=== PATIENT | male | born 1930 | race Caucasian/White ===

== ENCOUNTER 2016-09-04 14:41 | Outpatient (RCR) | payer MEDICARE, OTHER ==
--- OUTSIDE RECORDS SUMMARY | 2016-06-18 08:54 | XMS REPORT | Continuity of Care Document ---
Author Author [facility] Organization [facility] Address Unknown Phone Unavailable Care Team Providers Care Tactical Air Control Party Manager Name Role Phone Minnie Alejandra PCP [phone] Source Comments Some departments are not documenting in the electronic medical record. If you do not see the information that you expected, contact Release of Information in the Health Information Management department at [phone] for further assistance in locating additional records.[facility] Active Allergies and Adverse Reactions No Known Allergies Current Medications Prescription Sig. Disp. Refills Start End Date Status Date bethanechol (URECHOLINE) Take 50 mg by mouth twice Active 25 mg tablet daily. aspirin 81 mg chew tablet Take 81 mg by mouth Active daily. clopidogrel (PLAVIX) 75 Take 75 mg by mouth Active mg daily. atorvastatin (LIPITOR) 80 Take 80 mg by mouth at Active mg tablet bedtime daily. amlodipine-benazepril Take 1 Cap by mouth at Active (LOTREL) 2.5-10 mg per bedtime daily. capsule ciprofloxacin (CIPRO) 500 Take 500 mg by mouth Active mg tablet twice daily. memantine (NAMENDA) 10 mg Take 10 mg by mouth twice Active tablet daily. (patient takes [place] brand name: Admenta). vitamins, B complex Tab Take 1 Tab by mouth Active daily. vitamins, multiple Cap Take 1 Cap by mouth Active daily. Active Problems Not on file Social History Tobacco Use Types Packs/Day Years Used Date Former Smoker Cigars Quit: 09/14/1951 Smokeless Tobacco: Former User Alcohol Use Drinks/Week oz/Week Comments No Last Filed Vital Signs Vital Sign Reading Time Taken Blood Pressure 132/78 12/15/2011 4:00 PM CDT Pulse 66 12/15/2011 4:00 PM CDT Temperature 36 C (96.8 F) 12/15/2011 4:00 PM CDT Respiratory Rate - - Height 1.829 m (6') 12/15/2011 11:00 AM CDT Weight 83.915 kg (185 lb) 12/15/2011 11:00 AM CDT Body Mass Index 25.08 12/15/2011 11:00 AM CDT Oxygen Saturation 99% 12/15/2011 4:00 PM CDT Plan of Care Health Maintenance Due Date Last Done Comments Physical (Comprehensive) 1937 Exam Pertussis Vaccine 1941 Tetanus Vaccine 11/30/1947 Shingles Vaccine 1990 Prevnar/Pneumovax (#1) 11/30/1995 Influenza Vaccine 05/15/2015 Results from Last 3 Months Not on file
[2016-06-24 09:27] LABS: URIC ACID 6.7 MG/DL (2.6-7.2)
[2016-06-30 14:35] LABS: BASOPHILS # (AUTO) 0.1 10^3/uL (0.0-0.1); BASOPHILS % (AUTO) 1 % (0-10); EOSINOPHILS # (AUTO) 0.4 10^3/uL (0.0-0.3); EOSINOPHILS % (AUTO) 3 % (0-10); LYMPHOCYTES # (AUTO) 0.8 X 10^3 (1.0-4.0); LYMPHOCYTES % (AUTO) 6 % (12-44); MEAN CORPUSCULAR HEMOGLOBIN 28 PG (25-34); MEAN CORPUSCULAR HGB CONC 33 G/DL (32-36); MEAN CORPUSCULAR VOLUME 84 FL (80-99); MEAN PLATELET VOLUME 8.9 FL (7.4-10.4); MONOCYTES % (AUTO) 0 % (0-12); NEUTROPHILS # (AUTO) 11.1 X 10^3 (1.8-7.8); NEUTROPHILS % (AUTO) 90 % (42-75); PLATELET COUNT 221 10^3/uL (130-400); RED BLOOD COUNT 4.53 10^6/uL (4.35-5.85); RED CELL DISTRIBUTION WIDTH 14.9 % (10.0-14.5); WHITE BLOOD COUNT 12.4 10^3/uL (4.3-11.0)
[2016-06-30 14:56] LABS: BILIRUBIN,URINE NEGATIVE (NEGATIVE); KETONES,URINE NEGATIVE (NEGATIVE); LEUKOCYTE ESTERASE ,URINE 3+ (NEGATIVE); NITRITE,URINE NEGATIVE (NEGATIVE); PH,URINE 7 (5-9); PROTEIN,URINE 2+ (NEGATIVE); UROBILINOGEN,URINE NORMAL (NORMAL)
[2016-06-30 14:57] LABS: WBC,URINE TNTC /HPF
[2016-06-30 15:13] LABS: ALANINE AMINOTRANSFERASE 54 U/L (0-55); ALBUMIN 3.1 G/DL (3.2-4.5); ANION GAP 6 MMOL/L (5-14); ASPARTATE AMINO TRANSFERASE 23 U/L (5-34); BILIRUBIN,TOTAL 1.6 MG/DL (0.1-1.0); BLOOD UREA NITROGEN 21 MG/DL (7-18); BUN/CREATININE RATIO 20; CARBON DIOXIDE 26 MMOL/L (21-32); CHLORIDE 104 MMOL/L (98-107); CREATININE SERUM 1.05 MG/DL (0.60-1.30); GFR ESTIMATED > 60; GLUCOSE 162 MG/DL (70-105); POTASSIUM 4.4 MMOL/L (3.6-5.0); SODIUM 136 MMOL/L (135-145); TOTAL PROTEIN 5.4 G/DL (6.4-8.2); URIC ACID 4.7 MG/DL (2.6-7.2)
[2016-07-08 13:51] LABS: BASOPHILS # (AUTO) 0.1 10^3/uL (0.0-0.1); BASOPHILS % (AUTO) 6 % (0-10); EOSINOPHILS # (AUTO) 0.5 10^3/uL (0.0-0.3); EOSINOPHILS % (AUTO) 20 % (0-10); LYMPHOCYTES % (AUTO) 41 % (12-44); MEAN CORPUSCULAR HEMOGLOBIN 27 PG (25-34); MEAN CORPUSCULAR HGB CONC 32 G/DL (32-36); MEAN CORPUSCULAR VOLUME 85 FL (80-99); MEAN PLATELET VOLUME 8.6 FL (7.4-10.4); MONOCYTES # (AUTO) 0.6 X 10^3 (0.0-1.0); MONOCYTES % (AUTO) 22 % (0-12); NEUTROPHILS # (AUTO) 0.3 X 10^3 (1.8-7.8); NEUTROPHILS % (AUTO) 11 % (42-75); PLATELET COUNT 188 10^3/uL (130-400); RED BLOOD COUNT 4.42 10^6/uL (4.35-5.85); RED CELL DISTRIBUTION WIDTH 15.3 % (10.0-14.5); WHITE BLOOD COUNT 2.5 10^3/uL (4.3-11.0)
[2016-07-08 14:41] LABS: ANION GAP 6 MMOL/L (5-14); BLOOD UREA NITROGEN 12 MG/DL (7-18); BUN/CREATININE RATIO 12; CALCIUM 8.3 MG/DL (8.5-10.1); CARBON DIOXIDE 24 MMOL/L (21-32); CHLORIDE 108 MMOL/L (98-107); CREATININE SERUM 0.99 MG/DL (0.60-1.30); GFR ESTIMATED > 60; GLUCOSE 117 MG/DL (70-105); POTASSIUM 4.7 MMOL/L (3.6-5.0); SODIUM 138 MMOL/L (135-145); URIC ACID 4.6 MG/DL (2.6-7.2)
[2016-07-14 12:21] LABS: BASOPHILS # (AUTO) 0.2 10^3/uL (0.0-0.1); BASOPHILS % (AUTO) 2 % (0-10); EOSINOPHILS # (AUTO) 0.6 10^3/uL (0.0-0.3); EOSINOPHILS % (AUTO) 6 % (0-10); LYMPHOCYTES # (AUTO) 1.8 X 10^3 (1.0-4.0); LYMPHOCYTES % (AUTO) 20 % (12-44); MEAN CORPUSCULAR HEMOGLOBIN 28 PG (25-34); MEAN CORPUSCULAR HGB CONC 32 G/DL (32-36); MEAN CORPUSCULAR VOLUME 86 FL (80-99); MEAN PLATELET VOLUME 8.4 FL (7.4-10.4); MONOCYTES # (AUTO) 1.5 X 10^3 (0.0-1.0); MONOCYTES % (AUTO) 16 % (0-12); NEUTROPHILS # (AUTO) 5.3 X 10^3 (1.8-7.8); NEUTROPHILS % (AUTO) 57 % (42-75); PLATELET COUNT 256 10^3/uL (130-400); RED BLOOD COUNT 4.68 10^6/uL (4.35-5.85); WHITE BLOOD COUNT 9.4 10^3/uL (4.3-11.0)
[2016-07-14 13:33] LABS: ANION GAP 8 MMOL/L (5-14); BLOOD UREA NITROGEN 12 MG/DL (7-18); BUN/CREATININE RATIO 11; CALCIUM 8.7 MG/DL (8.5-10.1); CARBON DIOXIDE 25 MMOL/L (21-32); CHLORIDE 107 MMOL/L (98-107); CREATININE SERUM 1.14 MG/DL (0.60-1.30); GFR ESTIMATED > 60; GLUCOSE 109 MG/DL (70-105); POTASSIUM 4.6 MMOL/L (3.6-5.0); SODIUM 140 MMOL/L (135-145); URIC ACID 5.4 MG/DL (2.6-7.2)
[2016-07-15 13:47] LABS: BILIRUBIN,URINE NEGATIVE (NEGATIVE); KETONES,URINE NEGATIVE (NEGATIVE); LEUKOCYTE ESTERASE ,URINE 1+ (NEGATIVE); NITRITE,URINE NEGATIVE (NEGATIVE); PH,URINE 6 (5-9); PROTEIN,URINE 1+ (NEGATIVE); UROBILINOGEN,URINE 4 MG/DL (NORMAL)
[2016-07-15 13:55] LABS: SQUAMOUS EPITHELIAL CELL,UR 0-2 /HPF
[2016-07-22 10:48] LABS: BASOPHILS # (AUTO) 0.2 10^3/uL (0.0-0.1); BASOPHILS % (AUTO) 2 % (0-10); EOSINOPHILS # (AUTO) 0.4 10^3/uL (0.0-0.3); EOSINOPHILS % (AUTO) 4 % (0-10); LYMPHOCYTES # (AUTO) 1.6 X 10^3 (1.0-4.0); LYMPHOCYTES % (AUTO) 13 % (12-44); MEAN CORPUSCULAR HEMOGLOBIN 28 PG (25-34); MEAN CORPUSCULAR HGB CONC 33 G/DL (32-36); MEAN CORPUSCULAR VOLUME 85 FL (80-99); MEAN PLATELET VOLUME 9.4 FL (7.4-10.4); MONOCYTES # (AUTO) 1.3 X 10^3 (0.0-1.0); MONOCYTES % (AUTO) 11 % (0-12); NEUTROPHILS # (AUTO) 8.6 X 10^3 (1.8-7.8); NEUTROPHILS % (AUTO) 71 % (42-75); PLATELET COUNT 214 10^3/uL (130-400); RED BLOOD COUNT 4.56 10^6/uL (4.35-5.85); RED CELL DISTRIBUTION WIDTH 16.2 % (10.0-14.5); WHITE BLOOD COUNT 12.1 10^3/uL (4.3-11.0)
[2016-07-22 11:16] LABS: ALANINE AMINOTRANSFERASE 24 U/L (0-55); ALBUMIN 3.5 G/DL (3.2-4.5); ANION GAP 9 MMOL/L (5-14); ASPARTATE AMINO TRANSFERASE 24 U/L (5-34); BILIRUBIN,TOTAL 0.9 MG/DL (0.1-1.0); BLOOD UREA NITROGEN 9 MG/DL (7-18); BUN/CREATININE RATIO 9; CALCIUM 8.8 MG/DL (8.5-10.1); CARBON DIOXIDE 21 MMOL/L (21-32); CHLORIDE 108 MMOL/L (98-107); CREATININE SERUM 1.04 MG/DL (0.60-1.30); GFR ESTIMATED > 60; GLUCOSE 109 MG/DL (70-105); LACTATE DEHYDROGENASE 365 U/L (125-220); POTASSIUM 4.1 MMOL/L (3.6-5.0); SODIUM 138 MMOL/L (135-145); TOTAL PROTEIN 5.9 G/DL (6.4-8.2)
[2016-07-28 15:49] LABS: BASOPHILS # (AUTO) 0.1 10^3/uL (0.0-0.1); BASOPHILS % (AUTO) 1 % (0-10); EOSINOPHILS # (AUTO) 1.1 10^3/uL (0.0-0.3); EOSINOPHILS % (AUTO) 4 % (0-10); LYMPHOCYTES # (AUTO) 1.7 X 10^3 (1.0-4.0); LYMPHOCYTES % (AUTO) 7 % (12-44); MEAN CORPUSCULAR HEMOGLOBIN 29 PG (25-34); MEAN CORPUSCULAR HGB CONC 33 G/DL (32-36); MEAN CORPUSCULAR VOLUME 85 FL (80-99); MEAN PLATELET VOLUME 10.2 FL (7.4-10.4); MONOCYTES # (AUTO) 0.2 X 10^3 (0.0-1.0); MONOCYTES % (AUTO) 1 % (0-12); NEUTROPHILS # (AUTO) 22.5 X 10^3 (1.8-7.8); NEUTROPHILS % (AUTO) 88 % (42-75); PLATELET COUNT 147 10^3/uL (130-400); RED BLOOD COUNT 4.67 10^6/uL (4.35-5.85); RED CELL DISTRIBUTION WIDTH 15.7 % (10.0-14.5); WHITE BLOOD COUNT 25.6 10^3/uL (4.3-11.0)
[2016-07-28 16:14] LABS: ANION GAP 9 MMOL/L (5-14); BLOOD UREA NITROGEN 18 MG/DL (7-18); BUN/CREATININE RATIO 21; CALCIUM 8.4 MG/DL (8.5-10.1); CARBON DIOXIDE 25 MMOL/L (21-32); CHLORIDE 104 MMOL/L (98-107); CREATININE SERUM 0.87 MG/DL (0.60-1.30); GFR ESTIMATED > 60; GLUCOSE 117 MG/DL (70-105); MAGNESIUM 2.1 MG/DL (1.8-2.4); POTASSIUM 3.6 MMOL/L (3.6-5.0); SODIUM 138 MMOL/L (135-145); URIC ACID 5.6 MG/DL (2.6-7.2)
[2016-08-04 11:38] LABS: BASOPHILS # (AUTO) 0.1 10^3/uL (0.0-0.1); BASOPHILS % (AUTO) 1 % (0-10); EOSINOPHILS # (AUTO) 0.3 10^3/uL (0.0-0.3); EOSINOPHILS % (AUTO) 2 % (0-10); LYMPHOCYTES # (AUTO) 1.4 X 10^3 (1.0-4.0); LYMPHOCYTES % (AUTO) 11 % (12-44); MEAN CORPUSCULAR HEMOGLOBIN 28 PG (25-34); MEAN CORPUSCULAR HGB CONC 32 G/DL (32-36); MEAN CORPUSCULAR VOLUME 87 FL (80-99); MEAN PLATELET VOLUME 9.2 FL (7.4-10.4); MONOCYTES # (AUTO) 0.9 X 10^3 (0.0-1.0); MONOCYTES % (AUTO) 7 % (0-12); NEUTROPHILS # (AUTO) 10.7 X 10^3 (1.8-7.8); NEUTROPHILS % (AUTO) 80 % (42-75); PLATELET COUNT 127 10^3/uL (130-400); RED BLOOD COUNT 4.37 10^6/uL (4.35-5.85); RED CELL DISTRIBUTION WIDTH 16.6 % (10.0-14.5); WHITE BLOOD COUNT 13.3 10^3/uL (4.3-11.0)
[2016-08-04 12:13] LABS: CALCIUM 8.7 MG/DL (8.5-10.1); CREATININE SERUM 1.27 MG/DL (0.60-1.30); MAGNESIUM 2.5 MG/DL (1.8-2.4); POTASSIUM 4.9 MMOL/L (3.6-5.0)
[2016-08-11 14:04] LABS: BASOPHILS # (AUTO) 0.2 10^3/uL (0.0-0.1); BASOPHILS % (AUTO) 2 % (0-10); EOSINOPHILS # (AUTO) 0.3 10^3/uL (0.0-0.3); EOSINOPHILS % (AUTO) 2 % (0-10); LYMPHOCYTES # (AUTO) 1.7 X 10^3 (1.0-4.0); LYMPHOCYTES % (AUTO) 14 % (12-44); MEAN CORPUSCULAR HEMOGLOBIN 28 PG (25-34); MEAN CORPUSCULAR HGB CONC 33 G/DL (32-36); MEAN CORPUSCULAR VOLUME 87 FL (80-99); MEAN PLATELET VOLUME 8.8 FL (7.4-10.4); MONOCYTES % (AUTO) 8 % (0-12); NEUTROPHILS # (AUTO) 8.5 X 10^3 (1.8-7.8); NEUTROPHILS % (AUTO) 74 % (42-75); PLATELET COUNT 214 10^3/uL (130-400); RED BLOOD COUNT 4.37 10^6/uL (4.35-5.85); RED CELL DISTRIBUTION WIDTH 17.3 % (10.0-14.5); WHITE BLOOD COUNT 11.6 10^3/uL (4.3-11.0)
[2016-08-11 15:42] LABS: CALCIUM 9.1 MG/DL (8.5-10.1); CREATININE SERUM 1.32 MG/DL (0.60-1.30); MAGNESIUM 2.1 MG/DL (1.8-2.4); POTASSIUM 4.8 MMOL/L (3.6-5.0); URIC ACID 6.6 MG/DL (2.6-7.2)
[2016-08-18 09:28] LABS: BASOPHILS # (AUTO) 0.1 10^3/uL (0.0-0.1); BASOPHILS % (AUTO) 1 % (0-10); EOSINOPHILS # (AUTO) 0.4 10^3/uL (0.0-0.3); EOSINOPHILS % (AUTO) 3 % (0-10); LYMPHOCYTES # (AUTO) 1.8 X 10^3 (1.0-4.0); LYMPHOCYTES % (AUTO) 16 % (12-44); MEAN CORPUSCULAR HEMOGLOBIN 29 PG (25-34); MEAN CORPUSCULAR HGB CONC 33 G/DL (32-36); MEAN CORPUSCULAR VOLUME 86 FL (80-99); MEAN PLATELET VOLUME 8.6 FL (7.4-10.4); MONOCYTES # (AUTO) 0.8 X 10^3 (0.0-1.0); MONOCYTES % (AUTO) 8 % (0-12); NEUTROPHILS # (AUTO) 7.9 X 10^3 (1.8-7.8); NEUTROPHILS % (AUTO) 72 % (42-75); PLATELET COUNT 240 10^3/uL (130-400); RED BLOOD COUNT 4.25 10^6/uL (4.35-5.85); RED CELL DISTRIBUTION WIDTH 17.4 % (10.0-14.5); WHITE BLOOD COUNT 10.9 10^3/uL (4.3-11.0)
[2016-08-18 09:58] LABS: ALBUMIN 3.7 G/DL (3.2-4.5); BILIRUBIN,TOTAL 0.8 MG/DL (0.1-1.0); CREATININE SERUM 1.23 MG/DL (0.60-1.30); MAGNESIUM 1.9 MG/DL (1.8-2.4); POTASSIUM 4.3 MMOL/L (3.6-5.0); URIC ACID 7.3 MG/DL (2.6-7.2)
[2016-09-01 11:18] LABS: BASOPHILS % (AUTO) 0 % (0-10); EOSINOPHILS # (AUTO) 0.4 10^3/uL (0.0-0.3); EOSINOPHILS % (AUTO) 2 % (0-10); LYMPHOCYTES # (AUTO) 2.2 X 10^3 (1.0-4.0); LYMPHOCYTES % (AUTO) 14 % (12-44); MEAN CORPUSCULAR HEMOGLOBIN 29 PG (25-34); MEAN CORPUSCULAR HGB CONC 33 G/DL (32-36); MEAN CORPUSCULAR VOLUME 87 FL (80-99); MEAN PLATELET VOLUME 8.5 FL (7.4-10.4); MONOCYTES # (AUTO) 1.6 X 10^3 (0.0-1.0); MONOCYTES % (AUTO) 10 % (0-12); NEUTROPHILS # (AUTO) 11.6 X 10^3 (1.8-7.8); NEUTROPHILS % (AUTO) 74 % (42-75); PLATELET COUNT 234 10^3/uL (130-400); RED CELL DISTRIBUTION WIDTH 17.5 % (10.0-14.5); WHITE BLOOD COUNT 15.7 10^3/uL (4.3-11.0)
[2016-09-01 11:53] LABS: ANION GAP 7 MMOL/L (5-14); BLOOD UREA NITROGEN 25 MG/DL (7-18); BUN/CREATININE RATIO 25; CALCIUM 8.5 MG/DL (8.5-10.1); CARBON DIOXIDE 23 MMOL/L (21-32); CHLORIDE 107 MMOL/L (98-107); CREATININE SERUM 0.99 MG/DL (0.60-1.30); GFR ESTIMATED > 60; GLUCOSE 69 MG/DL (70-105); MAGNESIUM 2.2 MG/DL (1.8-2.4); POTASSIUM 4.3 MMOL/L (3.6-5.0); SODIUM 137 MMOL/L (135-145); URIC ACID 6.6 MG/DL (2.6-7.2)
[2016-09-01 12:28] LABS: ALANINE AMINOTRANSFERASE 26 U/L (0-55); ALBUMIN 3.4 G/DL (3.2-4.5); ASPARTATE AMINO TRANSFERASE 18 U/L (5-34); BILIRUBIN,TOTAL 1.1 MG/DL (0.1-1.0); TOTAL PROTEIN 5.4 G/DL (6.4-8.2)
[~2016-09-04] VITALS: Ht 178.4 cm; Wt 90.7 kg
[~2016-09-04 14:41] MED LIST: ACETAMINOPHEN 325 MG TAB (TYLENOL) CANCER CTR PO PRN; ASP325TEC PO; ASPI-808 PO; ATOR10TA66 PO; ATOR80TA76 PO; BISA5TAB8 PO; CEFD300C3 PO; CEPH-507 PO; COLE1TAB PO; CYCLOPHOSPHAMIDE IV SCH; ETOPOSIDE IV SCH; FAMOTIDINE 20MG/2ML IV (CANCER CTR) IV SCH; FOSAPREPITANT 150 MG/NS 150 MG IVPB (CANCER CTR) IV PRN; GLUC1TAB29 PO; HYDR-3714 PO; HYDR-3812 PO; HYDR-3820 PO; MEPERIDINE (DEMEROL) INJ 50 MG/ML CANCER CTR IV PRN; NITR-65 PO; NORMAL SALINE IV SCH; NS IV 1000 ML (CANCER CTR) IV SCH; NS IV 500 ML (CANCER CENTER) 500 ML ONE; NS IV SCH; OMEP20TA7 PO; ONDA8TAB6 PO; ONDANSETRON 16 MG, DEXAMETHASONE 10 MG/NS 50 ML IVPB IV SCH; PEGFILGRASTIM 6 MG/0.6ML NEULASTA SC SCH; PHEN-639 PO; POLY17PO6 PO; PRD10T PO; SULF1TAB35 PO; SULF1TAB7 PO; TRIM100T PO; VINCRISTINE SULFATE IV SCH; [UNRECOGNIZED DRUG - OTHER] IV SCH; bactrim PO; diphenhydrAMINE 25 MG TAB (BENADRYL) CANCER CENTER PO ONE; diphenhydrAMINE 25 MG TAB (BENADRYL) CANCER CENTER PO SCH; diphenhydrAMINE 50 MG/ML INJ (CANCER CENTER) IV PRN; riTUXimab 500 MG, riTUXimab FOR IV INJ CONC 200 MG in NS (IVPB) CANCER CENTER ONLY 150 ML IV SCH; vinCRIStine SULFATE 2 MG in NS (IVPB) 50 ML IV SCH
[2016-09-08] MEDS ORDERED: CEPH-507 PO (15:30)
[2016-09-09] MEDS ORDERED: CEPH-507 PO (13:55)
[2016-09-09] MEDS ORDERED: HYDR-3820 PO (13:55)
[2016-09-09] MEDS ORDERED: OMEP20CA12 PO (13:55)
== END 2016-09-16 | disposition home or self-care (01) ==
LOC: ONC 14:41
PROVIDERS: ATTEND Internal Medicine Hematology & Oncology
DX: Z51.11 Encounter for antineoplastic chemotherapy (principal); C83.38 Diffuse large B-cell lymphoma, lymph nodes of multiple sites; D70.1 Agranulocytosis secondary to cancer chemotherapy; T45.1X5A Adverse effect of antineoplastic and immunosuppressive drugs, initial encounter; N39.0 Urinary tract infection, site not specified; I25.10 Atherosclerotic heart disease of native coronary artery without angina pectoris; F03.90 Unspecified dementia, unspecified severity, without behavioral disturbance, psychotic disturbance, mood disturbance, and anxiety; R53.1 Weakness; I10 Essential (primary) hypertension; G47.33 Obstructive sleep apnea (adult) (pediatric); Z85.46 Personal history of malignant neoplasm of prostate; Z95.1 Presence of aortocoronary bypass graft; Z79.899 Other long term (current) drug therapy
CPT/HCPCS: 36415; 36591; 80048; 80053; 80074; 81000; 83615; 83735; 84550; 85025; 87088; 87186; 96360; 96367; 96372; 96375; 96411; 96413; 96415; 96417; 99213; 99214

== ENCOUNTER 2016-09-12 13:14 | Inpatient (IN) | payer MEDICARE, OTHER ==
[~2016-09-12] VITALS: Ht 182.9 cm; Wt 96.2 kg
[~2016-09-12 13:14] MED LIST changes: -ACETAMINOPHEN 325 MG TAB (TYLENOL) CANCER CTR PO PRN; -CYCLOPHOSPHAMIDE IV SCH; -ETOPOSIDE IV SCH; -FAMOTIDINE 20MG/2ML IV (CANCER CTR) IV SCH; -FOSAPREPITANT 150 MG/NS 150 MG IVPB (CANCER CTR) IV PRN; -MEPERIDINE (DEMEROL) INJ 50 MG/ML CANCER CTR IV PRN; -NORMAL SALINE IV SCH; -NS IV 1000 ML (CANCER CTR) IV SCH; -NS IV 500 ML (CANCER CENTER) 500 ML ONE; -NS IV SCH; +OMEP20CA12 PO; -ONDANSETRON 16 MG, DEXAMETHASONE 10 MG/NS 50 ML IVPB IV SCH; -PEGFILGRASTIM 6 MG/0.6ML NEULASTA SC SCH; -VINCRISTINE SULFATE IV SCH; -[UNRECOGNIZED DRUG - OTHER] IV SCH; -diphenhydrAMINE 25 MG TAB (BENADRYL) CANCER CENTER PO ONE; -diphenhydrAMINE 25 MG TAB (BENADRYL) CANCER CENTER PO SCH; -diphenhydrAMINE 50 MG/ML INJ (CANCER CENTER) IV PRN; -riTUXimab 500 MG, riTUXimab FOR IV INJ CONC 200 MG in NS (IVPB) CANCER CENTER ONLY 150 ML IV SCH; -vinCRIStine SULFATE 2 MG in NS (IVPB) 50 ML IV SCH
[2016-09-12] MEDS ORDERED: CATHETER FLUSH 10 ML SYR IV PRN (14:15)
[2016-09-12] MEDS ORDERED: ONDANSETRON 4 MG/2 ML (SDV) Z0FRAN IV PRN (14:15)
[2016-09-12] MEDS ORDERED: POLYETHYLENE GLYCOL 17 GM (MIRALAX) PACK PO PRN (14:15)
[2016-09-12] MEDS ORDERED: MILK OF MAGNESIA 400 MG/5 ML 30 ML UDC PO PRN (14:15)
[2016-09-12] MEDS ORDERED: SENNA W/DOCUSATE (SENOKOT S) TABLET PO PRN (14:15)
[2016-09-12] MEDS ORDERED: PATIENT MAY USE OWN MEDS, ALL PO SCH (14:15)
--- OUTSIDE RECORDS SUMMARY | 2016-09-12 14:32 | XMS REPORT | Continuity of Care Document ---
Author Author [facility] Organization [facility] Address Unknown Phone Unavailable Care Team Providers Care Kicking Machine Operator Name Role Phone Minnie Alejandra PCP [phone] Source Comments Some departments are not documenting in the electronic medical record. If you do not see the information that you expected, contact Release of Information in the Health Information Management department at [phone] for further assistance in locating additional records.[facility] Active Allergies and Adverse Reactions No [...] mouth twice Active tablet daily. (patient takes [place] brand name: Admenta). vitamins, B complex Tab [...]
--- NOTE | 2016-09-12 15:08 | Oncology History & Physical ---
Visit Information Visit Information Date of Admission Sep 12, 2016 at 14:21 Attending Physician Suma Grayson Admitting Physician Minnie Alejandra MD Interval History 1. 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 Clinical stage at least IIIa on chemo last dose 09/01/16 2. Neutropenic fever and pancytopenia due to chemo, on Granix 480mcg. WBC and ANC much improved. No more fever. 3. E coli and enterococcus UTI with h/o chronic UTI and neurogenic bladder and self-catheterize bladder. resistance to Levaquin, sensitive to Rocephin. 4. Mild dementia 5. CAD. Reason Hospital Visit Mr. Velasquez is a 85 year old white man admitted on 09/09/16 with UTI, pancytopenia, neutropenic fever and lymphoma. He was treated with IVF and initially Levaquin, Rocephin. The Levaquin was stopped 2nd day after the urine culture showed E Coli and resistance to Levaquin but sensitive to Rocephin. He was also given Granix 480mcg daily. His condition was initially improved and his WBC was up from 1.2 to 17. We stopped Granix and planned to send him home today but he spiked low grade fever and urine culture showed enterococcus and sensitive to Vancomycin. We added Vancomycin to Rocephin and discharged him to swing bed to continue the IV antibiotics and continue PT/OT. He is somewhat weaker today and his stated that he did not have good sleep because he did not have CPAP. She will bring it in today. Discharge condition: Stable. Pt will continue IV antibiotics. Pharmacy to monitor Vanco level and dosing. I consulted the patient on: 09/12/16 14:58 Constitutional: weakness Respiratory: no symptoms reported Cardiovascular: no symptoms reported Genitourinary: see HPI Health Status Allergies Coded Allergies: No Known Drug Allergies (Unverified , 07/30/16) Home Medications Aspirin (Aspirin) 325 Mg Tablet 325 MG PO DAILY (Reported) Atorvastatin Calcium (Atorvastatin Calcium) 80 Mg Tablet 40 MG PO HS (Reported) TAKES 1/2 (80MG) TABLET Cephalexin (Keflex) 500 Mg Capsule 7Days 500 MG PO QID (Reported) #28 FILLED 09-08-16 Hydrocodone/Acetaminophen (Hydrocodon-Acetaminophn 10-325) 1 Each Tablet 1 TAB PO Q4H PRN PRN PAIN (Reported) Omeprazole (Omeprazole) 20 Mg Capsule.dr 20 MG PO DAILY (Reported) Ondansetron HCl (Zofran) 8 Mg Tablet 8 MG PO Q8H PRN PRN NAUSEA/VOMITING ( Reported) Polyethylene Glycol 3350 (Miralax) 17 Gm Powd.pack 17 GM PO DAILY PRN PRN CONSTIPATION (Reported) JOD-Hxpmfs-Krzlhw Hx Patient Social History Former smoker/When Quit: Sep 14, 1969 Type Used: Cigarettes Recent Hopitalizations: Yes Immunizations Up To Date Tetanus Booster (TDap): More than 5yrs Date of Pneumonia Vaccine: Jun 03, 2015 Date of Influenza Vaccine: Aug 04, 2016 Family Medical History Significant Family History: No Pertinent Family Hx Family History: Arthritis 19 FATHER Cardiovascular disease FH: lymphoma 19 MOTHER Prostate cancer 19 FATHER Physical Exam Vital Signs Capillary Refill : General Appearance: No Apparent Distress HEENT: PERRL/EOMI Neck: Non Tender Supple Respiratory: Chest Non Tender No Accessory Muscle Use No Respiratory Distress Gastrointestinal: Non Tender Soft Extremity: Non Tender Swelling Neurologic/Psychiatric: Alert Oriented x3 Impression & Plan Impression & Plan IMP: 1. 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 Clinical stage at least IIIa on chemo last dose 09/01/16 2. Neutropenic fever and pancytopenia due to chemo, on Granix 480mcg. WBC and ANC much improved. No more fever. 3. E coli and enterococcus UTI with h/o chronic UTI and neurogenic bladder and self-catheterize bladder. resistance to Levaquin, sensitive to Rocephin. 4. Mild dementia 5. CAD. Plan: 1. IV antibiotics Rocephin and Vanco. 2. Pharmacy monitor Vanco and dosing' 3. PT OT 4. CPAP from home at night ELTON FONTENOT MD Sep 12, 2016 15:08
--- NOTE | 2016-09-12 15:11 | Occupational Therapy Eval ---
OT Evaluation-General/PLF Medical Diagnosis Admission Date Sep 12, 2016 at 14:21 Onset Date: Sep 09, 2016 Therapy Diagnosis Therapy Diagnosis: decreased self care Height/Weight Height (Feet): 6 Height (Inches): 0.00 Weight (Pounds): 212 Weight (Ounces): 5.0 Referral Physician: Malia Medical History Pertinent Medical History: CAD, Dementia, [place] Additional Medical History Lymphoma, chronic UTI, neurogenic bladder Reviewed History: Yes Social History Home: Single Level Current Living Status: Spouse Entry Into Home: Stairs With Railing Steps Into Home: 3 ADL-Prior Level of Function ADL PLOF Comments Pt reports being independent with basic self care and mobility. able to assist as needed. DME/Equipment: Tub/Shower Drive Self: Yes OT Current Status Subjective Pt agreeable to therapy. No c/o pain. Mental Status/Objective Patient Orientation: Person, Place, Time (able to state month, but not year or date) Attachments: IV Current Glasses/Contacts: Yes Hearing Aids: Yes Dentures/Partials: Yes Hand Dominance: Right Upper Extremity ROM Grossly WFL Upper Extremity Coordination Intact Upper Extremity Strength Grossly 4/5 ADL-Treatment ADL-Current Pt in restroom upon therapist arrival. Sit to stand with minimal assistance using grab bar. Pt requires minimal assistance to pull Depends up. Gait to chair with FWW with minimal assistance for balance. Assist for IV pole. Pt doffed socks without assistance. Required minimal assistance to don left sock. Able to don right sock with SBA. Increased time required for ADLs and mobility. Pt sitting in chair with needs met after session. Functional [place] Measure 0=Not Assessed/NA 4=Minimal Assistance 1=Total Assistance 5=Supervision or Setup 2=Maximal Assistance 6=Modified [place] 3=Moderate Assistance 7=Complete IndependenceIRFPAI Quality Coding Scale 6 Independent with activity with or without an assistive device 5 Patient requires set up or clean up by helper. Patient completes activity by themselves 4 Supervision or touching assist (CGA). [place] provide cues , steadying assist 3 The helper provides less than half the effort to complete the activity 2 The helper provides more than half the effort to complete the activity 1 Dependent. The helper does all the effort to complete an activity 7 Patient refused to complete or attempt activity 9 The patient did not perform the activity before the current illness or injury 88 Not attempted due to Medical conditions or safety concerns Eating (FIM): 5 Eating (QC): 5 Lower Body Dressing (FIM): 4 (socks only) Toileting (FIM): 4 Toilet/Commode Transfer (FIM): 4 Education OT Patient Education: Rehab process Teaching Recipient: Patient Teaching Methods: Discussion Response to Teaching: Verbalize Understanding, Reinforcement Needed OT Short Term Goals Short Term Goals 1=Demonstrate adherence to instructed precautions during ADL tasks. 2=Patient will verbalize/demonstrate understanding of assistive devices/ modifications for ADL. 3=Patient will improve strength/tolerance for activity to enable patient to perform ADL's. OT Shelter Goals Shelter Goals Time Frame: Sep 26, 2016 Eating (FIM): 6 Eating (QC): 6 Oral Hygiene (QC): 6 Grooming(FIM): 6 Bathing(FIM): 5 Upper Body Dressing(FIM): 5 Lower Body Dressing(FIM): 5 Toileting(FIM): 5 Toilet/Commode Transfer(FIM): 5 Toilet/Commode Transfer (QC): 5 Additional Goals: 1-Demonstrate ADL Tasks, 2-Verbalize Understanding, 3- ImproveStrength/Natalio 1=Demonstrate adherence to instructed precautions during ADL tasks. 2=Patient will verbalize/demonstrate understanding of assistive devices/ modifications for ADL. 3=Patient will improve strength/tolerance for activity to enable patient to perform ADL's. OT Education/Plan Problem List/Assessment Assessment: Decreased Activ Tolerance, Dependent Transfers, Impaired Self-Care Skills Pt to benefit from skilled OT intervention for ADL training, transfers, strengthening, and home safety education to increase functional performance and allow safe return home. Discharge Recommendations Plan/Recommendations: Continue POC Treatment Plan/Plan of Care Treatment,Training & Education: Yes Patient would benefit from OT for education, treatment and training to promote independence in ADL's, mobility, safety and/or upper extremity function for ADL' s. Plan of Care: ADL Retraining, Functional Mobility, UE Funct Exercise/Act Treatment Duration: Sep 26, 2016 # of days/week 5 Visits Per Week: 5 Agreement: Yes Rehab Potential: Fair Time/GCodes Start Time: 14:34 Stop Time: 15:00 Total Time Billed (hr/min): 26 Billed Treatment Time 1 visit, EVS(10minutes), ADL(16minutes) KALE POWELL OT Sep 12, 2016 15:11
--- NOTE | 2016-09-12 15:24 | Physical Therapy Evaluation ---
PT Evaluation-General Medical Diagnosis Admission Date Sep 12, 2016 at 14:21 Medical Diagnosis: UTI Onset Date: Sep 09, 2016 Therapy Diagnosis Therapy Diagnosis: generalized weakness and debility Height/Weight Height (Feet): 6 Height (Inches): 0.00 Weight (Pounds): 212 Weight (Ounces): 5.0 Referral Physician: Malia Reason for Referral: Evaluation/Treatment Medical History Pertinent Medical History: CAD, Dementia, [place] Additional Medical History non Hodgkins lymphoma Current History severe weakness Reviewed History: Yes Social History Home: Single Level Current Living Status: Spouse Entry Into Home: Stairs With Railing PT Steps Into Home: 2 Prior/Core FIM Prior Level of Function Functional [place] Measure 0=Not Assessed/NA 4=Minimal Assistance 1=Total Assistance 5=Supervision or Setup 2=Maximal Assistance 6=Modified [place] 3=Moderate Assistance 7=Complete [place] Bed Mobility: 6 Transfers (B,C,W/C) (FIM): 6 Gait: 6 uses FWW at home PT Current Subjective Patient is slightly agitated but agrees to therapy. Pain Numeric Pain Scale: 0-No Pain Location: No Pain Reported Mental Status Patient Orientation: Confused Attachments: IV Transfers Functional [place] Measure 0=Not Assessed/NA 4=Minimal Assistance 1=Total Assistance 5=Supervision or Setup 2=Maximal Assistance 6=Modified [place] 3=Moderate Assistance 7=Complete IndependenceIRFPAI Quality Coding Scale 6 Independent with activity with or without an assistive device 5 Patient requires set up or clean up by helper. Patient completes activity by themselves 4 Supervision or touching assist (CGA). [place] provide cues , steadying assist 3 The helper provides less than half the effort to complete the activity 2 The helper provides more than half the effort to complete the activity 1 Dependent. The helper does all the effort to complete an activity 7 Patient refused to complete or attempt activity 9 The patient did not perform the activity before the current illness or injury 88 Not attempted due to Medical conditions or safety concerns Transfers (B, C, W/C) (FIM): 4 Scootin Rollin Supine to/from Sit: 4 Sit to/from Stand: 4 Bed to/from Chair: 4 Sit to Lying (QC): 4 Lying-Sitting/Side of Bed(QC): 3 Sit to Stand (QC): 3 Chair/Iju-rb-Gsucf Xfer(QC): 3 Patient is unaware of safety concerns and is impulsive to sit. Education with patient on proper sit to stand transfer techniques Gait Training Does the Patient Walk?: Yes Gait (FIM): 2 Distance (FIM): 0=755-49 ft Distance: 125' x 1; 50' x 1 Walk 50 ft with 2 Turns(QC): 2 Walk 150 ft (QC): 3 Gait Level of Assist: 4 Gait Persons Needed: 1 Gait Assistive Device: FWW severe flexed knee posture with ambulation and inability to self correct. Skilled verbal instruction for body placement in FWW (FWW too far forward) Wheelchair Training Does the Pt Use a Wheelchair?: No Balance Balance Sitting Static: Normal Balance Sitting Dynamic: Normal Balance-Standing Static: Fair Balance Standing Dynamic: Fair Exercises Seated Therapy Exercises: Ankle pumps, Long arc quads Seated Reps: 10 Treatments Gait training with education with patient of proper FWW use and body placement in FWW for safety. Patient becomes very agitated during treatment and treatment ceased. Assessment 85 y.o. male, will benefit from short term skilled PT to address functional strength and mobility to improve current LOF and to safely return to home with spouse and home health intervention. Due to dementia, patient becomes agitated when instructed/educated on proper techniques for safety concerns. PT Emergency Department Physician Goals Emergency Department Physician Goals PT Prison Goals Time Frame: Sep 26, 2016 Transfers (B,C,W/C) (FIM): 6 Sit to Lying (QC): 6 Lying-Sitting on Side/Bed(QC): 6 Sit to Stand (QC): 6 Rollin Chair/Yku-my-Dqscd Xfer(QC): 6 Does the Patient Walk: Yes Gait (FIM): 6 Gait distance (FIM): 3=150 ft Distance: 200' Gait Assistive Device: FWW Does the Pt use WC or Scooter?: No PT Plan Problem List Problem List: Activity Tolerance, Functional Strength, Safety, Balance, Gait, Transfer Treatment/Plan Treatment Plan: Continue Plan of Care Treatment Plan: Bed Mobility, Education, Functional Activity Natalio, Functional Strength, Gait, Safety, Therapeutic Exercise, Transfers Treatment Duration: Sep 26, 2016 # of days/week 6 Visits Per Week: 11 Minutes/Day (M-F): 15-45 Minutes/Day (Sat/[place]): PRN Pt/Family Agrees w/Plan: Yes Safety Risks/Education Patient Education: Gait Training, Transfer Techniques, Safety Issues Teaching Recipient: Patient Teaching Methods: Demonstration, Discussion Response to Teaching: Reinforcement Needed Discharge Recommendations Therapy D/C Recommendations: Physical Therapy Home Care Time/GCodes Time In: 1500 Time Out: 1523 Total Billed Treatment Time: 23 Total Billed Treatment 1 visit EVS 10 min GT 15 min ALFREDO IRENE PT Sep 12, 2016 15:24
[2016-09-12] MEDS: NS IV 1000 ML 1,000 ML IV SCH (16:57)
[2016-09-12 18:50] VITALS: BP 176/93
[2016-09-12] MEDS ORDERED: NORMAL SALINE (BAXTER MINI) 50 ML IV ONE (20:30)
[2016-09-12] MEDS ORDERED: cefTRIAXone 1 GM (ROCEPHIN) VIAL ONE (20:30)
[2016-09-12] MEDS: cefTRIAXone INJECTION 1,000 MG in NORMAL SALINE (BAXTER MINI) 50 ML IV SCH (20:41)
[2016-09-12] MEDS: ATORVASTATIN 40 MG (LIPITOR) TABLET PO SCH (20:41)
[2016-09-12] MEDS: ALPRAZolam 0.25 MG (XANAX) TAB PO PRN (23:41)
[2016-09-13] MEDS: diphenhydrAMINE 25 MG TAB (BENADRYL) PO PRN (02:26)
[2016-09-13 06:00] VITALS: BP 162/79
[2016-09-13] MEDS: ASPIRIN 325 MG (5 GR) TABLET PO SCH (09:57)
[2016-09-13] MEDS: PANTOPRAZOLE 20 MG TABLET (PROTONIX) PO SCH (09:57)
[2016-09-13] MEDS ORDERED: cefTRIAXone 1 GM (ROCEPHIN) VIAL ONE ×2 (10:07→22:00)
[2016-09-13] MEDS ORDERED: NORMAL SALINE (BAXTER MINI) 50 ML IV ONE ×2 (10:10→22:01)
[2016-09-13] MEDS: cefTRIAXone INJECTION 1,000 MG in NORMAL SALINE (BAXTER MINI) 50 ML IV SCH ×2 (10:19→23:13)
--- NOTE | 2016-09-13 11:13 | Physical Therapy Progress Note ---
Therapy Progress Note 1st attempt (7:15), pt had just ordered breakfast so got pt coffee and instructed pt on how to lower head of bed and bridge to scoot up in bed then advised PT would return in a while after pt had chance to finish breakfast. 2nd attempt (8:10), pt still working on breakfast and asked if PT could return. 3rd attempt, pt was asleep and nursing asked if PT would let pt sleep since they didn't sleep well last night. MICHEAL JHAVERI ENGAGEMENT MANAGER Sep 13, 2016 11:13
[2016-09-13] MEDS ORDERED: VANCOMYCIN 500 MG/VIAL IV ONE (12:26)
[2016-09-13] MEDS ORDERED: NS IV 500 ML 500 ML ONE (12:28)
[2016-09-13] MEDS: VANCOMYCIN INJECTION 1,500 MG in NS IV 500 ML 500 ML IV SCH (12:43)
--- NOTE | 2016-09-13 15:19 | Oncology Progress Note ---
Subjective Subjective/Events-last exam Feeling better. Pt wants to go home. No physical therapy so far today. Physical Exam Vital Signs Vital Sign - Last 12Hours 09/12/16 18:50 Temp 98.3 Pulse 93 Resp 16 B/P 176/93 Pulse Ox 95 O2 Delivery Room Air Capillary Refill : General Appearance: No Apparent Distress HEENT: PERRL/EOMI Neck: Non Tender Supple Respiratory: Chest Non Tender No Accessory Muscle Use No Respiratory Distress Cardiovascular: Regular Rate, Rhythm Gastrointestinal: Non Tender Soft Extremity: Non Tender No Calf Tenderness Neurologic/Psychiatric: Alert Oriented x3 Impression & Plan Impression & Plan IMP: 1. 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 Clinical stage at least IIIa on chemo last dose 09/01/16 2. Neutropenic fever and pancytopenia due to chemo, on Granix 480mcg. WBC and ANC much improved. No more fever. 3. E coli and enterococcus UTI with h/o chronic UTI and neurogenic bladder and self-catheterize bladder. resistance to Levaquin, sensitive to Rocephin. 4. Mild dementia 5. CAD. Plan: 1. IV antibiotics Rocephin and Vanco. 2. Pharmacy monitor Vanco and dosing' 3. PT OT. Physical therapy to evaluate if the patient is safe to go home. 4. CPAP from home at night. Clinical Quality Measures DVT/VTE Risk/Contraindication: Risk Factor Score Per Nursin RFS Level Per Nursing on Admit: 4+=Very High ELTON FONTENOT MD Sep 13, 2016 15:19
[2016-09-13] MEDS: NS IV 1000 ML 1,000 ML IV SCH (15:50)
[2016-09-13 18:36] VITALS: BP 140/94
[2016-09-13] MEDS: ATORVASTATIN 40 MG (LIPITOR) TABLET PO SCH (23:13)
[2016-09-13] MEDS: ALPRAZolam 0.25 MG (XANAX) TAB PO PRN (23:29)
[2016-09-14] MEDS: ACETAMINOPHEN 325 MG TABLET/CAPLET (TYLENOL) PO PRN ×2 (01:06→18:29)
[2016-09-14 04:53] LABS: BASOPHILS # (AUTO) 0.1 10^3/uL (0.0-0.1); BASOPHILS % (AUTO) 0 % (0-10); EOSINOPHILS # (AUTO) 0.2 10^3/uL (0.0-0.3); EOSINOPHILS % (AUTO) 1 % (0-10); LYMPHOCYTES # (AUTO) 1.6 X 10^3 (1.0-4.0); LYMPHOCYTES % (AUTO) 9 % (12-44); MEAN CORPUSCULAR HEMOGLOBIN 29 PG (25-34); MEAN CORPUSCULAR HGB CONC 33 G/DL (32-36); MEAN CORPUSCULAR VOLUME 87 FL (80-99); MEAN PLATELET VOLUME 9.9 FL (7.4-10.4); MONOCYTES # (AUTO) 1.4 X 10^3 (0.0-1.0); MONOCYTES % (AUTO) 7 % (0-12); NEUTROPHILS # (AUTO) 15.5 X 10^3 (1.8-7.8); NEUTROPHILS % (AUTO) 83 % (42-75); PLATELET COUNT 89 10^3/uL (130-400); RED BLOOD COUNT 3.71 10^6/uL (4.35-5.85); RED CELL DISTRIBUTION WIDTH 17.4 % (10.0-14.5); WHITE BLOOD COUNT 18.7 10^3/uL (4.3-11.0)
[2016-09-14 05:13] LABS: ANION GAP 10 MMOL/L (5-14); BLOOD UREA NITROGEN 8 MG/DL (7-18); BUN/CREATININE RATIO 10; CALCIUM 7.9 MG/DL (8.5-10.1); CARBON DIOXIDE 19 MMOL/L (21-32); CHLORIDE 108 MMOL/L (98-107); GFR ESTIMATED > 60; GLUCOSE 121 MG/DL (70-105); POTASSIUM 3.8 MMOL/L (3.6-5.0); SODIUM 137 MMOL/L (135-145)
[2016-09-14 06:00] VITALS: BP 180/90
[2016-09-14] MEDS ORDERED: NORMAL SALINE (BAXTER MINI) 50 ML IV ONE ×2 (09:13→20:17)
[2016-09-14] MEDS ORDERED: cefTRIAXone 1 GM (ROCEPHIN) VIAL ONE ×2 (09:13→20:17)
[2016-09-14] MEDS: PANTOPRAZOLE 20 MG TABLET (PROTONIX) PO SCH (09:22)
[2016-09-14] MEDS: cefTRIAXone INJECTION 1,000 MG in NORMAL SALINE (BAXTER MINI) 50 ML IV SCH ×2 (09:22→22:34)
[2016-09-14] MEDS: ASPIRIN 325 MG (5 GR) TABLET PO SCH (09:23)
[2016-09-14] MEDS ORDERED: TROUGH ORDER-PHARMACY XX NR (11:00)
[2016-09-14] MEDS: VANCOMYCIN INJECTION 1,500 MG in NS IV 500 ML 500 ML IV SCH (12:10)
--- NOTE | 2016-09-14 13:17 | Oncology Progress Note ---
Subjective Subjective/Events-last exam Pt had rough night last night. He is now sleeping. He stated yesterday "I may not make it to home". is disappointed that patient is not recovery as she wanted to be. Data Review Labs Laboratory Tests 09/14/16 04:35 Laboratory Tests 09/14/16 04:35: Calcium Level 7.9L, Carbon Dioxide Level 19L, Chloride Level 108H, Glucose Level 121H, Hematocrit 32L, Hemoglobin 10.6L, Lymphocytes (%) (Auto) 9L, Monocytes # (Auto) 1.4H, Neutrophils # (Auto) 15.5H, Neutrophils (%) (Auto) 83H , Platelet Count 89L, Red Blood Count 3.71L, Red Cell Distribution Width 17.4H, White Blood Count 18.7H 09/14/16 11:45: Vancomycin Level Trough 6.1L Physical Exam Vital Signs Vital Sign - Last 12Hours 09/12/16 18:50 Temp 98.3 Pulse 93 Resp 16 B/P 176/93 Pulse Ox 95 O2 Delivery Room Air Capillary Refill : General Appearance: Other (pt is sleeping with CPAP) Respiratory: Chest Non Tender Lungs Clear No Accessory Muscle Use Cardiovascular: Regular Rate, Rhythm Gastrointestinal: Non Tender Soft Extremity: No Calf Tenderness No Pedal Edema Neurologic/Psychiatric: Oriented x3 Impression & Plan Impression & Plan IMP: 1. 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 Clinical stage at least IIIa on chemo last dose 09/01/16. Tolerated poorly. 2. Neutropenic fever and pancytopenia due to chemo, on Granix 480mcg, last dose 09/12/16. WBC 18 today, also Plt and Hb better. ?residual effect of Granix , marrow rebounds or infection. 3. E coli and enterococcus UTI with h/o chronic UTI and neurogenic bladder and self-catheterize bladder. resistance to Levaquin, sensitive to Rocephin and Vanco. 4. Mild dementia 5. CAD. Plan: 1. Continue IV antibiotics Rocephin and Vanco. 2. Pharmacy monitor Vanco and dosing' 3. PT OT. Physical therapy to evaluate if the patient is safe to go home. 4. CPAP from home at night. 5. Repeat CBC, BMP tomorrow. Clinical Quality Measures DVT/VTE Risk/Contraindication: Risk Factor Score Per Nursin RFS Level Per Nursing on Admit: 4+=Very High ELTON FONTENOT MD Sep 14, 2016 13:17
[2016-09-14] MEDS: VANCOMYCIN 1250 MG/NS 250 ML IVPB IV SCH ×2 (13:24)
[2016-09-14] MEDS: NS IV 1000 ML 1,000 ML IV SCH (16:09)
[2016-09-14 16:28] VITALS: BP 156/81
[2016-09-14 18:14] VITALS: BP 151/78
[2016-09-14] MEDS: ATORVASTATIN 40 MG (LIPITOR) TABLET PO SCH (21:16)
[2016-09-14] MEDS: diphenhydrAMINE 25 MG TAB (BENADRYL) PO PRN (21:16)
[2016-09-15] MEDS: VANCOMYCIN 1250 MG/NS 250 ML IVPB IV SCH ×4 (01:16→12:55)
[2016-09-15 05:21] VITALS: BP 170/83
--- NOTE | 2016-09-15 08:50 | Physical Therapy Daily Note ---
PT Daily Note-Current Subjective Patient is in bed eating breakfast. Increased confusion. Pain Numeric Pain Scale: 0-No Pain Location: No Pain Reported Mental Status Patient Orientation: Confused Transfers Functional [place] Measure 0=Not Assessed/NA 4=Minimal Assistance 1=Total Assistance 5=Supervision or Setup 2=Maximal Assistance 6=Modified [place] 3=Moderate Assistance 7=Complete IndependenceIRFPAI Quality Coding Scale 6 Independent with activity with or without an assistive device 5 Patient requires set up or clean up by helper. Patient completes activity by themselves 4 Supervision or touching assist (CGA). [place] provide cues , steadying assist 3 The helper provides less than half the effort to complete the activity 2 The helper provides more than half the effort to complete the activity 1 Dependent. The helper does all the effort to complete an activity 7 Patient refused to complete or attempt activity 9 The patient did not perform the activity before the current illness or injury 88 Not attempted due to Medical conditions or safety concerns Transfers (B, C, W/C) (FIM): 3 Scootin Roll Left to Right (QC): 3 Supine to/from Sit: 4 Sit to/from Stand: 3 Sit to Lying (QC): 3 Sit to Stand (QC): 2 Chair/Plb-eb-Qccqj Xfer(QC): 2 Patient is very confused and impulsive with all mobility and is unsafe with all transfers. Patient states, "my left knee plays out". Gait Training Does the Patient Walk?: Yes Gait (FIM): 2 Distance (FIM): 1=806-21 ft Distance: 60' Walk 50 ft with 2 Turns(QC): 88 Walk 150 ft (QC): 88 Gait Level of Assist: 2 Gait Persons Needed: 1 Gait Assistive Device: FWW flexed hip/knee/trunk posture with FWW. Patient had 4 episodes of severely diminished strength and coordination bilateral LE's. Patient required max assist to return to recliner with patient attempting to sit ~3' from recliner. Education with patient on safety concerns. Exercises Supine Ex: Ankle pumps, Quad Set, Straight leg raise Supine Reps: 10 (AAROM ) Seated Therapy Exercises: Ankle pumps, Long arc quads, Hip flexion Seated Reps: 10 (AAROM) Patient is unable to perform exercises independently due to extreme weakness and fatigue. Assessment Patient is declining with all gross motor skills. Patient becomes agitated and is very unsafe with stand to sit transfers. Patient is limited with ambulation and all gross mobility. From a PT standpoint, patient is unsafe to return to home with spouse due to above findings. PT School Secretary Goals School Secretary Goals PT Residential Goals Time Frame: Sep 26, 2016 Transfers (B,C,W/C) (FIM): 6 Sit to Lying (QC): 6 Lying-Sitting on Side/Bed(QC): 6 Sit to Stand (QC): 6 Rollin Chair/Qog-qm-Oojoi Xfer(QC): 6 Does the Patient Walk: Yes Gait (FIM): 6 Gait distance (FIM): 3=150 ft Distance: 200' Gait Assistive Device: FWW Does the Pt use WC or Scooter?: No PT Plan Problem List Problem List: Activity Tolerance, Functional Strength, Safety, Balance, Gait, Transfer Treatment/Plan Treatment Plan: Continue Plan of Care Treatment Plan: Bed Mobility, Education, Functional Activity Natalio, Functional Strength, Gait, Safety, Therapeutic Exercise, Transfers Treatment Duration: Sep 26, 2016 Visits Per Week: 11 Minutes/Day (M-F): 15-45 Minutes/Day (Sat/[place]): PRN Safety Risks/Education Patient Education: Gait Training, Transfer Techniques, Safety Issues Teaching Recipient: Patient Teaching Methods: Demonstration, Discussion Response to Teaching: Reinforcement Needed Discharge Recommendations Therapy D/C Recommendations: Long Term Placement, Intermediate (TCU/NH) Time/GCodes Time In: 815 Time Out: 845 Total Billed Treatment Time: 30 Total Billed Treatment 1 visit GT 10 min EX 20 min ALFREDO IRENE PT Sep 15, 2016 08:50
[2016-09-15] MEDS ORDERED: NORMAL SALINE (BAXTER MINI) 50 ML IV ONE ×2 (09:23→21:32)
[2016-09-15] MEDS ORDERED: cefTRIAXone 1 GM (ROCEPHIN) VIAL ONE ×2 (09:23→21:32)
[2016-09-15] MEDS: ACETAMINOPHEN 325 MG TABLET/CAPLET (TYLENOL) PO PRN (09:33)
[2016-09-15] MEDS: PANTOPRAZOLE 20 MG TABLET (PROTONIX) PO SCH (09:33)
[2016-09-15] MEDS: ASPIRIN 325 MG (5 GR) TABLET PO SCH (09:33)
[2016-09-15] MEDS: cefTRIAXone INJECTION 1,000 MG in NORMAL SALINE (BAXTER MINI) 50 ML IV SCH ×2 (09:33→21:51)
--- NOTE | 2016-09-15 10:41 | Physical Therapy Daily Note ---
PT Daily Note-Current Subjective Patient is up in recliner and family requested PT at this time to determine patient LOF. Pain Numeric Pain Scale: 0-No Pain Location: No Pain Reported Mental Status Patient Orientation: Confused Transfers Functional [place] Measure 0=Not Assessed/NA 4=Minimal Assistance 1=Total Assistance 5=Supervision or Setup 2=Maximal Assistance 6=Modified [place] 3=Moderate Assistance 7=Complete IndependenceIRFPAI Quality Coding Scale 6 Independent with activity with or without an assistive device 5 Patient requires set up or clean up by helper. Patient completes activity by themselves 4 Supervision or touching assist (CGA). [place] provide cues , steadying assist 3 The helper provides less than half the effort to complete the activity 2 The helper provides more than half the effort to complete the activity 1 Dependent. The helper does all the effort to complete an activity 7 Patient refused to complete or attempt activity 9 The patient did not perform the activity before the current illness or injury 88 Not attempted due to Medical conditions or safety concerns Transfers (B, C, W/C) (FIM): 3 Sit to/from Stand: 3 Sit to Stand (QC): 3 Patient performed sit to stand x 2 sets to attempt to ambulate, however, due to severe weakness, patient is unable to perform safely. Son present. Assessment Education with son and patient on current LOF and patient's unsafe ability to return to home. Son voices much concern on patient and family is very adamant for patient to return to home with caregivers and a w/c so patient is not ambulating. PT reinforces that patient is currently not safe to return to home with family due to extreme weakness and diminished functional mobility. PT Fdc Goals Group Leader [employer] Goals PT Group Leader [employer] Processing Goals Time Frame: Sep 26, 2016 Transfers (B,C,W/C) (FIM): 6 Sit to Lying (QC): 6 Lying-Sitting on Side/Bed(QC): 6 Sit to Stand (QC): 6 Rollin Chair/Qts-bt-Rmduy Xfer(QC): 6 Does the Patient Walk: Yes Gait (FIM): 6 Gait distance (FIM): 3=150 ft Distance: 200' Gait Assistive Device: FWW Does the Pt use WC or Scooter?: No PT Plan Problem List Problem List: Activity Tolerance, Functional Strength, Safety, Balance, Gait, Transfer Treatment/Plan Treatment Plan: Continue Plan of Care Treatment Plan: Bed Mobility, Education, Functional Activity Natalio, Functional Strength, Gait, Safety, Therapeutic Exercise, Transfers Treatment Duration: Sep 26, 2016 Visits Per Week: 11 Minutes/Day (M-F): 15-45 Minutes/Day (Sat/[place]): PRN Safety Risks/Education Patient Education: Safety Issues Teaching Recipient: Family Teaching Methods: Discussion Response to Teaching: Verbalize Understanding, Reinforcement Needed Time/GCodes Time In: 1020 Time Out: 1035 Total Billed Treatment Time: 15 Total Billed Treatment 1 visit FA 15 min ALFREDO IRENE PT Sep 15, 2016 10:41
[2016-09-15] MEDS ORDERED: TROUGH ORDER-PHARMACY XX NR (11:00)
[2016-09-15] MEDS: NS IV 1000 ML 1,000 ML IV SCH (13:32)
--- NOTE | 2016-09-15 14:40 | Occupational Ther Daily Note ---
OT Current Status-Daily Note Subjective Pt in bed, states he is tired, but does not have any pain. Agrees to treatment. Mental Status/Objective Patient Orientation: Confused Functional [place] Measure 0=Not Assessed/NA 4=Minimal Assistance 1=Total Assistance 5=Supervision or Setup 2=Maximal Assistance 6=Modified [place] 3=Moderate Assistance 7=Complete [place] Attachments: IV ADL-Treatment Pt supine to sit with assist for LE. Increased time and skilled cues required for task completion. Pt requests to sit up in chair. Pt required maximal assistance to don shoes. Pt unable to tie them, required assist to complete. Nurse aide entered room and requested pt transfer to rolling shower chair so she and RN could take pt to shower room. Pt sit to stand with moderate assistance. Transfer to shower chair with using FWW. Pt is impulsive with mobility and has impaired safety awareness. Pt had flexed posture and attempted to sit before reaching chair, requires multiple cues for safety and task completion. Pt's family and physician arrive. Pt sitting on shower chair with nurse aide, family, and physician present. Continue POC. Functional [place] Measure 0=Not Assessed/NA 4=Minimal Assistance 1=Total Assistance 5=Supervision or Setup 2=Maximal Assistance 6=Modified [place] 3=Moderate Assistance 7=Complete IndependenceIRFPAI Quality Coding Scale 6 Independent with activity with or without an assistive device 5 Patient requires set up or clean up by helper. Patient completes activity by themselves 4 Supervision or touching assist (CGA). [place] provide cues , steadying assist 3 The helper provides less than half the effort to complete the activity 2 The helper provides more than half the effort to complete the activity 1 Dependent. The helper does all the effort to complete an activity 7 Patient refused to complete or attempt activity 9 The patient did not perform the activity before the current illness or injury 88 Not attempted due to Medical conditions or safety concerns Education OT Patient Education: Safety issues Teaching Recipient: Patient Teaching Methods: Discussion Response to Teaching: Unable to Comprehend OT Short Term Goals Short Term Goals 1=Demonstrate adherence to instructed precautions during ADL tasks. 2=Patient will verbalize/demonstrate understanding of assistive devices/ modifications for ADL. 3=Patient will improve strength/tolerance for activity to enable patient to perform ADL's. OT Mcc Goals Mcc Goals Time Frame: Sep 26, 2016 Eating (FIM): 6 Eating (QC): 6 Oral Hygiene (QC): 6 Grooming(FIM): 6 Bathing(FIM): 5 Upper Body Dressing(FIM): 5 Lower Body Dressing(FIM): 5 Toileting(FIM): 5 Toilet/Commode Transfer(FIM): 5 Toilet/Commode Transfer (QC): 5 Additional Goals: 1-Demonstrate ADL Tasks, 2-Verbalize Understanding, 3- ImproveStrength/Natalio 1=Demonstrate adherence to instructed precautions during ADL tasks. 2=Patient will verbalize/demonstrate understanding of assistive devices/ modifications for ADL. 3=Patient will improve strength/tolerance for activity to enable patient to perform ADL's. OT Education/Plan Problem List/Assessment Pt to benefit from skilled OT intervention for ADL training, transfers, strengthening, and home safety education to increase functional performance and allow safe return home. Discharge Recommendations Plan/Recommendations: Continue POC Treatment Plan/Plan of Care Patient would benefit from OT for education, treatment and training to promote independence in ADL's, mobility, safety and/or upper extremity function for ADL' s. Plan of Care: ADL Retraining, Functional Mobility, UE Funct Exercise/Act Treatment Duration: Sep 26, 2016 Visits Per Week: 5 Agreement: Yes Rehab Potential: Fair Time/GCodes Start Time: 14:15 Stop Time: 14:30 Total Time Billed (hr/min): 15 Billed Treatment Time 1 visit, FA(15minutes) KALE POWELL OT Sep 15, 2016 14:40
--- NOTE | 2016-09-15 15:26 | Oncology Progress Note ---
Subjective Subjective/Events-last exam Pt had fever last night and this morning 101. But he felt better and family reported that he is doing much better today. He is talking and able to get up for PT. He eats full meals Data Review Labs Laboratory Tests 09/14/16 04:35: Calcium Level 7.9L, Carbon Dioxide Level 19L, Chloride Level 108H, Glucose Level 121H, Hematocrit 32L, Hemoglobin 10.6L, Lymphocytes (%) (Auto) 9L, Monocytes # (Auto) 1.4H, Neutrophils # (Auto) 15.5H, Neutrophils (%) (Auto) 83H , Platelet Count 89L, Red Blood Count 3.71L, Red Cell Distribution Width 17.4H, White Blood Count 18.7H 09/14/16 11:45: Vancomycin Level Trough 6.1L 09/15/16 11:20: Physical Exam Vital Signs Vital Sign - Last 12Hours 09/12/16 09/14/16 18:50 08:00 Temp 98.3 Pulse 93 Resp 16 B/P 176/93 Pulse Ox 95 O2 Delivery Room Air O2 Flow Rate 2.00 Capillary Refill : General Appearance: No Apparent Distress HEENT: PERRL/EOMI Neck: Non Tender Supple Respiratory: Chest Non Tender Lungs Clear No Accessory Muscle Use No Respiratory Distress Cardiovascular: Regular Rate, Rhythm Gastrointestinal: Normal Bowel Sounds Non Tender Soft Extremity: Non Tender No Pedal Edema Neurologic/Psychiatric: Alert Impression & Plan Impression & Plan IMP: 1. 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 Clinical stage at least IIIa on chemo last dose 09/01/16. Tolerated poorly. 2. Neutropenic fever and pancytopenia due to chemo, on Granix 480mcg, last dose 09/12/16. WBC 18 today, also Plt and Hb better. ?residual effect of Granix , marrow rebounds or infection. 3. E coli and enterococcus UTI with h/o chronic UTI and neurogenic bladder and self-catheterize bladder. resistance to Levaquin, sensitive to Rocephin and Vanco. 4. Mild dementia 5. CAD. 6. Fever, ? etiology Pt already on IV Rocephin and Vanco. Plan: 1. Continue IV antibiotics Rocephin and Vanco. 2. CXR. If shows pneumonia, I will add Zosyn. 3. PT OT. Physical therapy to evaluate if the patient is safe to go home. 4. CPAP from home at night. 5. I have talked with patient's and daughter. They are working on to get 24 hr care at home. In the meantime, they agree for short term [facility] facility Clinical Quality Measures DVT/VTE Risk/Contraindication: Risk Factor Score Per Nursin RFS Level Per Nursing on Admit: 4+=Very High ELTON FONTENOT MD Sep 15, 2016 15:26
[2016-09-15 15:27] LABS: BASOPHILS % (AUTO) 0 % (0-10); EOSINOPHILS # (AUTO) 0.1 10^3/uL (0.0-0.3); EOSINOPHILS % (AUTO) 1 % (0-10); LYMPHOCYTES # (AUTO) 2.2 X 10^3 (1.0-4.0); LYMPHOCYTES % (AUTO) 11 % (12-44); MEAN CORPUSCULAR HEMOGLOBIN 28 PG (25-34); MEAN CORPUSCULAR HGB CONC 33 G/DL (32-36); MEAN CORPUSCULAR VOLUME 87 FL (80-99); MEAN PLATELET VOLUME 9.6 FL (7.4-10.4); MONOCYTES # (AUTO) 1.8 X 10^3 (0.0-1.0); MONOCYTES % (AUTO) 9 % (0-12); NEUTROPHILS # (AUTO) 15.5 X 10^3 (1.8-7.8); NEUTROPHILS % (AUTO) 79 % (42-75); PLATELET COUNT 120 10^3/uL (130-400); RED CELL DISTRIBUTION WIDTH 17.9 % (10.0-14.5); WHITE BLOOD COUNT 19.7 10^3/uL (4.3-11.0)
--- NOTE | 2016-09-15 15:42 | Diagnostic Imaging Report ---
INDICATION: Lymphoma and fever. AP and lateral views of the chest are obtained with comparison made to study of 09/09/2016. FINDINGS: Overall heart size and pulmonary vascularity remain within normal limits. There is no pneumothorax or consolidation. Right anterior chest wall port remains in stable position. There is no evidence of significant pleural fluid. Previous surgical change in the mediastinum is noted. IMPRESSION: No acute abnormality or adverse change is detected. Dictated by: Dictated on workstation # [id number]
[2016-09-15 15:46] LABS: ALANINE AMINOTRANSFERASE 38 U/L (0-55); ANION GAP 8 MMOL/L (5-14); ASPARTATE AMINO TRANSFERASE 21 U/L (5-34); BILIRUBIN,TOTAL 0.8 MG/DL (0.1-1.0); BLOOD UREA NITROGEN 14 MG/DL (7-18); BUN/CREATININE RATIO 13; CALCIUM 7.9 MG/DL (8.5-10.1); CARBON DIOXIDE 21 MMOL/L (21-32); CHLORIDE 106 MMOL/L (98-107); CREATININE SERUM 1.04 MG/DL (0.60-1.30); GFR ESTIMATED > 60; GLUCOSE 140 MG/DL (70-105); POTASSIUM 3.7 MMOL/L (3.6-5.0); SODIUM 135 MMOL/L (135-145); TOTAL PROTEIN 5.1 G/DL (6.4-8.2)
[2016-09-15 17:58] VITALS: BP 153/77
[2016-09-15] MEDS: ATORVASTATIN 40 MG (LIPITOR) TABLET PO SCH (21:51)
[2016-09-15] MEDS: diphenhydrAMINE 25 MG TAB (BENADRYL) PO PRN (21:51)
[2016-09-15 22:07] LABS: BILIRUBIN,URINE NEGATIVE (NEGATIVE); KETONES,URINE NEGATIVE (NEGATIVE); LEUKOCYTE ESTERASE ,URINE 1+ (NEGATIVE); NITRITE,URINE NEGATIVE (NEGATIVE); PH,URINE 5 (5-9); PROTEIN,URINE 2+ (NEGATIVE); UROBILINOGEN,URINE 4 MG/DL (NORMAL)
[2016-09-15 22:15] LABS: WBC,URINE 0-2 /HPF
[2016-09-16] MEDS: VANCOMYCIN 1250 MG/NS 250 ML IVPB IV SCH ×4 (00:34→11:44)
[2016-09-16 06:00] VITALS: BP 177/86
[2016-09-16] MEDS ORDERED: NORMAL SALINE (BAXTER MINI) 50 ML IV ONE (08:40)
[2016-09-16] MEDS ORDERED: cefTRIAXone 1 GM (ROCEPHIN) VIAL ONE (08:40)
[2016-09-16] MEDS: ASPIRIN 325 MG (5 GR) TABLET PO SCH (08:50)
[2016-09-16] MEDS: cefTRIAXone INJECTION 1,000 MG in NORMAL SALINE (BAXTER MINI) 50 ML IV SCH ×2 (08:50→20:22)
[2016-09-16] MEDS: PANTOPRAZOLE 20 MG TABLET (PROTONIX) PO SCH (08:50)
[2016-09-16] MEDS: NS IV 1000 ML 1,000 ML IV SCH (11:44)
--- NOTE | 2016-09-16 12:08 | Physical Therapy Daily Note ---
PT Daily Note-Current Subjective Patient is in bed with family present. Pain Numeric Pain Scale: 0-No Pain Location: No Pain Reported Mental Status Patient Orientation: Confused Attachments: IV Transfers Functional [place] Measure 0=Not Assessed/NA 4=Minimal Assistance 1=Total Assistance 5=Supervision or Setup 2=Maximal Assistance 6=Modified [place] 3=Moderate Assistance 7=Complete IndependenceIRFPAI Quality Coding Scale 6 Independent with activity with or without an assistive device 5 Patient requires set up or clean up by helper. Patient completes activity by themselves 4 Supervision or touching assist (CGA). [place] provide cues , steadying assist 3 The helper provides less than half the effort to complete the activity 2 The helper provides more than half the effort to complete the activity 1 Dependent. The helper does all the effort to complete an activity 7 Patient refused to complete or attempt activity 9 The patient did not perform the activity before the current illness or injury 88 Not attempted due to Medical conditions or safety concerns Transfers (B, C, W/C) (FIM): 3 Scootin Roll Left to Right (QC): 3 Supine to/from Sit: 4 Sit to/from Stand: 3 Sit to Lying (QC): 3 Sit to Stand (QC): 3 Chair/Flg-do-Ngsva Xfer(QC): 3 Gait Training Does the Patient Walk?: Yes Gait (FIM): 3 Distance (FIM): 3=243-86 ft Distance: 125' Walk 50 ft with 2 Turns(QC): 3 Walk 150 ft (QC): 88 Gait Level of Assist: 3 Gait Persons Needed: 2 Gait Assistive Device: FWW extreme bilateral flexed knee posture in FWW with inability to correct. Exercises Seated Therapy Exercises: Ankle pumps, Long arc quads Seated Reps: 10 (2 sets) Assessment Patient is more alert and slightly improved from yesterday. Patient will continue to require 24/ care for safety. PT Isotope Technologist Goals Longterm Goals PT Longterm Goals Time Frame: Sep 26, 2016 Transfers (B,C,W/C) (FIM): 6 Sit to Lying (QC): 6 Lying-Sitting on Side/Bed(QC): 6 Sit to Stand (QC): 6 Rollin Chair/Ppp-kx-Odtvf Xfer(QC): 6 Does the Patient Walk: Yes Gait (FIM): 6 Gait distance (FIM): 3=150 ft Distance: 200' Gait Assistive Device: FWW Does the Pt use WC or Scooter?: No PT Plan Treatment/Plan Treatment Plan: Continue Plan of Care Treatment Plan: Bed Mobility, Education, Functional Activity Natalio, Functional Strength, Gait, Safety, Therapeutic Exercise, Transfers Treatment Duration: Sep 26, 2016 Visits Per Week: 11 Minutes/Day (M-F): 15-45 Minutes/Day (Sat/[place]): PRN Time/GCodes Time In: 1100 Time Out: 1123 Total Billed Treatment Time: 23 Total Billed Treatment 1 visit EX 8 min GT 15 min ALFREDO IRENE PT Sep 16, 2016 12:08
[2016-09-16 12:51] LABS: BASOPHILS % (AUTO) 0 % (0-10); EOSINOPHILS # (AUTO) 0.2 10^3/uL (0.0-0.3); EOSINOPHILS % (AUTO) 1 % (0-10); LYMPHOCYTES % (AUTO) 10 % (12-44); MEAN CORPUSCULAR HEMOGLOBIN 28 PG (25-34); MEAN CORPUSCULAR HGB CONC 33 G/DL (32-36); MEAN CORPUSCULAR VOLUME 87 FL (80-99); MEAN PLATELET VOLUME 9.6 FL (7.4-10.4); MONOCYTES # (AUTO) 1.5 X 10^3 (0.0-1.0); MONOCYTES % (AUTO) 7 % (0-12); NEUTROPHILS % (AUTO) 82 % (42-75); PLATELET COUNT 137 10^3/uL (130-400); RED CELL DISTRIBUTION WIDTH 17.5 % (10.0-14.5); WHITE BLOOD COUNT 20.7 10^3/uL (4.3-11.0)
[2016-09-16 13:09] LABS: ANION GAP 9 MMOL/L (5-14); BLOOD UREA NITROGEN 14 MG/DL (7-18); BUN/CREATININE RATIO 14; CALCIUM 7.9 MG/DL (8.5-10.1); CARBON DIOXIDE 21 MMOL/L (21-32); CHLORIDE 105 MMOL/L (98-107); CREATININE SERUM 0.99 MG/DL (0.60-1.30); GFR ESTIMATED > 60; GLUCOSE 122 MG/DL (70-105); POTASSIUM 3.9 MMOL/L (3.6-5.0); SODIUM 135 MMOL/L (135-145)
--- NOTE | 2016-09-16 13:39 | Occupational Ther Daily Note ---
OT Current Status-Daily Note Subjective No pain reported. Appearance Pt. is in bed. Agrees to spongebathe this date. Mental Status/Objective Patient Orientation: Confused, Unable to Assess Functional [place] Measure 0=Not Assessed/NA 4=Minimal Assistance 1=Total Assistance 5=Supervision or Setup 2=Maximal Assistance 6=Modified [place] 3=Moderate Assistance 7=Complete [place] ADL-Treatment Functional [place] Measure 0=Not Assessed/NA 4=Minimal Assistance 1=Total Assistance 5=Supervision or Setup 2=Maximal Assistance 6=Modified [place] 3=Moderate Assistance 7=Complete IndependenceIRFPAI Quality Coding Scale 6 Independent with activity with or without an assistive device 5 Patient requires set up or clean up by helper. Patient completes activity by themselves 4 Supervision or touching assist (CGA). [place] provide cues , steadying assist 3 The helper provides less than half the effort to complete the activity 2 The helper provides more than half the effort to complete the activity 1 Dependent. The helper does all the effort to complete an activity 7 Patient refused to complete or attempt activity 9 The patient did not perform the activity before the current illness or injury 88 Not attempted due to Medical conditions or safety concerns Bathing (FIM): 3 (Pt. requires assist to bathe [place] area and bilateral feet.) Lower Body Dressing (FIM): 2 (Pt. requires max assist to doff/don socks on side of bed.) Transfers (B, C, W/C) (FIM): 3 (Pt. requires assistance to transfer supine-sit , and sit-stand to scoot bottom to get to HOB. Pt. transfers sit-supine with mod assist.) Other Treatment Pt. agrees to spongebathe. Requires assistance to transfer to side of bed. Pt. has difficulty maintaining balance on side of bed. Continually falls backward. Requires CGA throughout treatment to maintain posture. Pt. also has difficulty with memory. Does not remember his spouse being here at the hospital with him. No street clothing available. Pt. dons hospital gown. All needs met back in bed. Education OT Patient Education: Correct positioning, Modified ADL techniques, Progress toward Goal/Update tx plan, Purpose of tx/functional activities, Reviewed precautions, Transfer techniques Teaching Recipient: Patient Teaching Methods: Demonstration, Discussion Response to Teaching: Verbalize Understanding, Return Demonstration OT Short Term Goals Short Term Goals 1=Demonstrate adherence to instructed precautions during ADL tasks. 2=Patient will verbalize/demonstrate understanding of assistive devices/ modifications for ADL. 3=Patient will improve strength/tolerance for activity to enable patient to perform ADL's. OT Food Scientist Goals Food Scientist Goals Time Frame: Sep 26, 2016 Eating (FIM): 6 Eating (QC): 6 Oral Hygiene (QC): 6 Grooming(FIM): 6 Bathing(FIM): 5 Upper Body Dressing(FIM): 5 Lower Body Dressing(FIM): 5 Toileting(FIM): 5 Toilet/Commode Transfer(FIM): 5 Toilet/Commode Transfer (QC): 5 Additional Goals: 1-Demonstrate ADL Tasks, 2-Verbalize Understanding, 3- ImproveStrength/Natalio 1=Demonstrate adherence to instructed precautions during ADL tasks. 2=Patient will verbalize/demonstrate understanding of assistive devices/ modifications for ADL. 3=Patient will improve strength/tolerance for activity to enable patient to perform ADL's. OT Education/Plan Problem List/Assessment Assessment: Decreased Activ Tolerance, Decreased Safety Aware, Decreased UE Strength, Dependent Transfers, Impaired Bed Mobility, Impaired Funct Balance, Impaired I ADL's, Impaired Self-Care Skills Pt to benefit from skilled OT intervention for ADL training, transfers, strengthening, and home safety education to increase functional performance and allow safe return home. Discharge Recommendations Plan/Recommendations: Continue POC Therapy D/C Recommendations: 24 hr Supervision Target Placement Spouse states that pt. will be going to a correction. Treatment Plan/Plan of Care Treatment,Training & Education: Yes Patient would benefit from OT for education, treatment and training to promote independence in ADL's, mobility, safety and/or upper extremity function for ADL' s. Plan of Care: ADL Retraining, Functional Mobility, UE Funct Exercise/Act Treatment Duration: Sep 26, 2016 Visits Per Week: 5 Agreement: Yes Rehab Potential: Fair Time/GCodes Start Time: 09:55 Stop Time: 10:20 Total Time Billed (hr/min): 25 Billed Treatment Time 1, ADL x 2 CODY WOLFF OT Sep 16, 2016 13:39
--- NOTE | 2016-09-16 14:09 | Oncology Progress Note ---
Data Review Labs Physical Exam Vital Signs Capillary Refill : General Appearance: No Apparent Distress Respiratory: No Accessory Muscle Use No Respiratory Distress Impression & Plan Impression & Plan IMP: 1. 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 Clinical stage at least IIIa on chemo last dose 09/01/16. Tolerated poorly. 2. Neutropenic fever and pancytopenia due to chemo, on Granix 480mcg, last dose 09/12/16. Pt also had Neulasta (long acting Neupogen on 09/04/16 at [facility]). Now his WBC is still high but clinically doing better. I think the high WBC is due to the Neulasta. His Plt and Hb are improving. 3. E coli and enterococcus UTI with h/o chronic UTI and neurogenic bladder and self-catheterize bladder. resistance to Levaquin, sensitive to Rocephin and Vanco. 4. Mild dementia 5. CAD. 6. Fever, ? etiology Pt already on IV Rocephin and Vanco. CXR and UA were unremarkable. Plan: 1. Continue IV antibiotics Rocephin and Vanco for now. 2. If no fever, Pt can be discharged to senior living in 1-2 days. 3. PT OT. Physical therapy to evaluate if the patient is safe to go home. 4. CPAP from home at night. 5. I have talked with patient's and daughter. They are working on to get 24 hr care at home. In the meantime, they agree for short term senior living facility Clinical Quality Measures DVT/VTE Risk/Contraindication: Risk Factor Score Per Nursin RFS Level Per Nursing on Admit: 4+=Very High ELTON FONTENOT MD Sep 16, 2016 14:09 18:50 08:00 Temp 98.3 Pulse 93 Resp 16 B/P 176/93 Pulse Ox 95 O2 Delivery Room Air O2 Flow Rate 2.00 Capillary Refill : Impression & Plan Impression & Plan IMP: 1. 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 Clinical stage at least IIIa on chemo last dose 09/01/16. Tolerated poorly. 2. Neutropenic fever and pancytopenia due to chemo, on Granix 480mcg, last dose 09/12/16. Pt also had Neulasta ([facility] acting [facility]up[facility] Now his WBC is still high but clinically doing better. I think the high WBC is due to the Neulasta. His Plt and Hb are improving. 3. E coli and enterococcus UTI with h/o chronic UTI and neurogenic bladder and self-catheterize bladder. resistance to Levaquin, sensitive to Rocephin and Vanco. 4. Mild dementia 5. CAD. 6. Fever, ? etiology Pt already on IV Rocephin and Vanco. CXR and UA were unremarkable. Plan: 1. Continue IV antibiotics Rocephin and Vanco for now. 2. If no fever, Pt can be discharged to senior living in 1-2 days. 3. PT OT. Physical therapy to evaluate if the patient is safe to go home. 4. CPAP from home at night. 5. I have talked with patient's and daughter. They are working on to get 24 hr care at home. In the meantime, they agree for short term senior living facility Clinical Quality Measures DVT/VTE Risk/Contraindication: Risk Factor Score Per Nursin RFS Level Per Nursing on Admit: 4+=Very High ELTON FONTENOT MD Sep 16, 2016 14:09
--- NOTE | 2016-09-16 15:03 | Physical Therapy Daily Note ---
PT Daily Note-Current Subjective Patient is in recliner and agrees to therapy. present. Pain Numeric Pain Scale: 0-No Pain Location: No Pain Reported Mental Status Patient Orientation: Confused Attachments: IV Transfers Functional [place] Measure 0=Not Assessed/NA 4=Minimal Assistance 1=Total Assistance 5=Supervision or Setup 2=Maximal Assistance 6=Modified [place] 3=Moderate Assistance 7=Complete IndependenceIRFPAI Quality Coding Scale 6 Independent with activity with or without an assistive device 5 Patient requires set up or clean up by helper. Patient completes activity by themselves 4 Supervision or touching assist (CGA). [place] provide cues , steadying assist 3 The helper provides less than half the effort to complete the activity 2 The helper provides more than half the effort to complete the activity 1 Dependent. The helper does all the effort to complete an activity 7 Patient refused to complete or attempt activity 9 The patient did not perform the activity before the current illness or injury 88 Not attempted due to Medical conditions or safety concerns Transfers (B, C, W/C) (FIM): 3 Scootin Roll Left to Right (QC): 3 Supine to/from Sit: 3 Sit to/from Stand: 3 Sit to Lying (QC): 3 Sit to Stand (QC): 3 Chair/Tzh-aa-Pzmdj Xfer(QC): 3 Patient is very impulsive to sit from stand and required assist to reach recliner from 3' away as patient "launched" himself into the chair. Gait Training Does the Patient Walk?: Yes Gait (FIM): 2 Distance (FIM): 2=934-20 ft Distance: 110' Walk 50 ft with 2 Turns(QC): 2 Walk 150 ft (QC): 88 Gait Level of Assist: 3 (close, guarded due to patient impulsive behavior) Gait Persons Needed: 2 Gait Assistive Device: FWW flexed bilateral knees and hips Exercises Supine Ex: Ankle pumps, Heel Slides, Straight leg raise Supine Reps: 10 (AAROM) Assessment Patient fatigues with minimal activity and ceases treatment. Plan to dismiss to CT this week. Patient slowly progressing. PT Carpet Installer Helper Goals Shelter Goals PT Carpet Installer Helper Goals Time Frame: Sep 26, 2016 Transfers (B,C,W/C) (FIM): 6 Sit to Lying (QC): 6 Lying-Sitting on Side/Bed(QC): 6 Sit to Stand (QC): 6 Rollin Chair/Bsb-ac-Lpylz Xfer(QC): 6 Does the Patient Walk: Yes Gait (FIM): 6 Gait distance (FIM): 3=150 ft Distance: 200' Gait Assistive Device: FWW Does the Pt use WC or Scooter?: No PT Plan Treatment/Plan Treatment Plan: Continue Plan of Care Treatment Plan: Bed Mobility, Education, Functional Activity Natalio, Functional Strength, Gait, Safety, Therapeutic Exercise, Transfers Treatment Duration: Sep 26, 2016 Visits Per Week: 11 Minutes/Day (M-F): 15-45 Minutes/Day (Sat/[place]): PRN Time/GCodes Time In: 1418 Time Out: 1438 Total Billed Treatment Time: 20 Total Billed Treatment 1 visit FA 20 min ALFREDO IRENE PT Sep 16, 2016 15:03
--- NOTE | 2016-09-16 16:51 | Oncology Progress Note ---
Subjective Subjective/Events-last exam Doing better today. Ready to go to [facility] tomorrow. No fever Data Review Labs Laboratory Tests 09/16/16 12:40 Laboratory Tests 09/14/16 04:35: Calcium Level 7.9L, Carbon Dioxide Level 19L, Chloride Level 108H, Glucose Level 121H, Hematocrit 32L, Hemoglobin 10.6L, Lymphocytes (%) (Auto) 9L, Monocytes # (Auto) 1.4H, Neutrophils # (Auto) 15.5H, Neutrophils (%) (Auto) 83H , Platelet Count 89L, Red Blood Count 3.71L, Red Cell Distribution Width 17.4H, White Blood Count 18.7H 09/14/16 11:45: Vancomycin Level Trough 6.1L 09/15/16 11:20: 09/15/16 15:09: Calcium Level 7.9L, Glucose Level 140H, Hematocrit 33L, Hemoglobin 10.8L, Lymphocytes (%) (Auto) 11L, Monocytes # (Auto) 1.8H, Neutrophils # (Auto) 15.5H , Neutrophils (%) (Auto) 79H, Platelet Count 120L, Red Blood Count 3.80L, Red Cell Distribution Width 17.9H, White Blood Count 19.7H, Albumin 3.0L, Alkaline Phosphatase 138H, Lactic Acid Level 2.1*H, Total Protein 5.1L 09/15/16 17:21: 09/15/16 21:45: Urine Amorphous Sediment FEW LUZMARIA URATESH, Urine Color AMBERH, Urine Crystals PRESENTH, Urine Leukocyte Esterase 1+H, Urine Protein 2+H, Urine RBC 10-25H, Urine RBC (Auto) 4+H, Urine Urobilinogen 4H 09/16/16 12:40: Calcium Level 7.9L, Glucose Level 122H, Hematocrit 33L, Hemoglobin 10.8L, Lymphocytes (%) (Auto) 10L, Monocytes # (Auto) 1.5H, Neutrophils # (Auto) 17.0H , Neutrophils (%) (Auto) 82H, Red Blood Count 3.80L, Red Cell Distribution Width 17.5H, White Blood Count 20.7H Physical Exam Vital Signs Vital Sign - Last 12Hours 09/12/16 09/14/16 18:50 08:00 Temp 98.3 Pulse 93 Resp 16 B/P 176/93 Pulse Ox 95 O2 Delivery Room Air O2 Flow Rate 2.00 Capillary Refill : General Appearance: No Apparent Distress HEENT: PERRL/EOMI Neck: Non Tender Supple Respiratory: Chest Non Tender Lungs Clear No Accessory Muscle Use No Respiratory Distress Cardiovascular: Regular Rate, Rhythm No JVD Gastrointestinal: Non Tender Soft Extremity: Non Tender No Calf Tenderness Neurologic/Psychiatric: Alert Impression & Plan Impression & Plan IMP: 1. 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 Clinical stage at least IIIa on chemo last dose 09/01/16. Tolerated poorly. 2. Neutropenic fever and pancytopenia due to chemo, on Granix 480mcg, last dose 09/12/16. Pt also had Neulasta (long acting Neupogen on 09/04/16 at [facility]). Now his WBC is high but clinically doing better. I think the high WBC is due to the Neulasta. His Plt and Hb are also improving. 3. E coli and enterococcus UTI with h/o chronic UTI and neurogenic bladder and self-catheterize bladder. resistance to Levaquin, sensitive to Rocephin and Vanco. 4. Mild dementia 5. CAD. 6. Fever, Resolved. ? drug related. CXR and UA were unremarkable. 7. Leukocytosis 2nd to Neulasta (long acting Neupogen) Plan: 1. Continue IV antibiotics Rocephin and Vanco till discharge. 2. Pt can be discharged to [facility] tomorrow. 3. PT OT. Physical therapy to evaluate if the patient is safe to go home. 4. CPAP from home at night. 5. I have talked with patient's and daughter. They are working on to get 24 hr care at home. In the meantime, they agree for short term [facility] facility Clinical Quality Measures DVT/VTE Risk/Contraindication: Risk Factor Score Per Nursin RFS Level Per Nursing on Admit: 4+=Very High ELTON FONTENOT MD Sep 16, 2016 16:51
[2016-09-16 18:00] VITALS: BP 178/92
[2016-09-16] MEDS: ATORVASTATIN 40 MG (LIPITOR) TABLET PO SCH (20:22)
[2016-09-17] MEDS: VANCOMYCIN 1250 MG/NS 250 ML IVPB IV SCH ×4 (01:17→12:50)
[2016-09-17 06:00] VITALS: BP 143/69
[2016-09-17] MEDS: cefTRIAXone INJECTION 1,000 MG in NORMAL SALINE (BAXTER MINI) 50 ML IV SCH (08:18)
[2016-09-17] MEDS: ASPIRIN 325 MG (5 GR) TABLET PO SCH (08:20)
[2016-09-17] MEDS: PANTOPRAZOLE 20 MG TABLET (PROTONIX) PO SCH (08:20)
[2016-09-17] MEDS: HYDROcodone/APAP 10 MG/325 MG (LORTAB) TAB PO PRN ×2 (08:20→16:14)
--- NOTE | 2016-09-17 11:46 | Therapy Team Discharge Summary ---
Therapy Discharge Summary Discharge Recommendations Date of Discharge 09-17-16 Therapy D/C Recommendations: 24 hr Supervision Occupational Therapy Pt. has been seen by occupational therapy to increase overall strength and mobility with daily tasks. At this time, pt. demonstrates memory and cognitive deficits, as well as physical deficits. Pt. requires max cues to complete tasks and max assistance at times. Pt. at this time is discharging to alf to increase ability to perform tasks, and to increase independence and strength. Pt. would benefit from skilled treatment at alf setting to continue with strengthening. PT Second Miller Goals Long-Term Goals PT Second Miller Goals Time Frame: Sep 26, 2016 Transfers (B,C,W/C) (FIM): 6 Sit to Lying (QC): 6 Lying-Sitting on Side/Bed(QC): 6 Sit to Stand (QC): 6 Rollin Chair/Rfc-vy-Ybawp Xfer(QC): 6 Does the Patient Walk: Yes Gait (FIM): 6 Gait distance (FIM): 3=150 ft Distance: 200' Gait Assistive Device: FWW Does the Pt use WC or Scooter?: No OT Long-Term Goals Second Miller Goals Time Frame: Sep 26, 2016 Eating (FIM): 6 (not met- set up) Eating (QC): 6 (not met-set up) Oral Hygiene (QC): 6 Grooming(FIM): 6 (not met- declines with this OT) Bathing(FIM): 5 (not met- mod assistance) Upper Body Dressing(FIM): 5 (not met- clothing not available.) Lower Body Dressing(FIM): 5 (not met- max assistance) Toileting(FIM): 5 (not met) Toilet/Commode Transfer(FIM): 5 (not met- mod/max assist) Toilet/Commode Transfer (QC): 5 (not met- max assistance) Additional Goals: 1-Demonstrate ADL Tasks, 2-Verbalize Understanding, 3- ImproveStrength/Natalio 1=Demonstrate adherence to instructed precautions during ADL tasks. 2=Patient will verbalize/demonstrate understanding of assistive devices/ modifications for ADL. 3=Patient will improve strength/tolerance for activity to enable patient to perform ADL's. CODY WOLFF OT Sep 17, 2016 11:46
--- NOTE | 2016-09-17 11:46 | Physical Therapy Daily Note ---
PT Daily Note-Current Subjective Patient in bed pre tx, agrees to PT with some encouragement. in the room. Pain Numeric Pain Scale: 0-No Pain Appearance Patient in chair post tx, has nurse call, in the room. Mental Status Patient Orientation: Confused Attachments: IV Transfers Functional [place] Measure 0=Not Assessed/NA 4=Minimal Assistance 1=Total Assistance 5=Supervision or Setup 2=Maximal Assistance 6=Modified [place] 3=Moderate Assistance 7=Complete IndependenceIRFPAI Quality Coding Scale 6 Independent with activity with or without an assistive device 5 Patient requires set up or clean up by helper. Patient completes activity by themselves 4 Supervision or touching assist (CGA). [place] provide cues , steadying assist 3 The helper provides less than half the effort to complete the activity 2 The helper provides more than half the effort to complete the activity 1 Dependent. The helper does all the effort to complete an activity 7 Patient refused to complete or attempt activity 9 The patient did not perform the activity before the current illness or injury 88 Not attempted due to Medical conditions or safety concerns Transfers (B, C, W/C) (FIM): 4 Scootin Roll Left to Right (QC): 4 Supine to/from Sit: 4 Sit to/from Stand: 4 Sit to Lying (QC): 3 Sit to Stand (QC): 3 Chair/Bnm-ql-Rgjlz Xfer(QC): 4 Bed to/from Chair: 4 Patient needs some assist going from supine to sit and from sit to stand. Cues for safety and hand placement. Gait Training Does the Patient Walk?: Yes Gait (FIM): 2 Distance: 100' Walk 50 ft with 2 Turns(QC): 3 Walk 150 ft (QC): 88 Gait Level of Assist: 4 Gait Persons Needed: 1 Gait Assistive Device: FWW Patient needs min assist to guide his walker, he tends to have the walker way too far forward and gets out from behind it when turning. He also needs cues to stand up, he tends to have increasing hip and knee flexion due to fatigue. Treatments bed mobility and transfers, ambulation Assessment Current Status: Fair Progress Patient ambulated better than yesterday, less cues to stand up. PT Medical Case Manager Goals Penitentiary Goals PT Medical Case Manager Goals Time Frame: Sep 26, 2016 Transfers (B,C,W/C) (FIM): 6 Sit to Lying (QC): 6 Lying-Sitting on Side/Bed(QC): 6 Sit to Stand (QC): 6 Rollin Chair/Dna-at-Svrew Xfer(QC): 6 Does the Patient Walk: Yes Gait (FIM): 6 Gait distance (FIM): 3=150 ft Distance: 200' Gait Assistive Device: FWW Does the Pt use WC or Scooter?: No PT Plan Problem List Problem List: Activity Tolerance, Functional Strength, Safety, Balance, Gait, Transfer, Bed Mobility Treatment/Plan Treatment Plan: Continue Plan of Care Treatment Plan: Bed Mobility, Education, Functional Activity Natalio, Functional Strength, Gait, Safety, Therapeutic Exercise, Transfers Treatment Duration: Sep 26, 2016 Visits Per Week: 11 Minutes/Day (M-F): 15-45 Minutes/Day (Sat/[place]): PRN Safety Risks/Education Patient Education: Gait Training, Transfer Techniques, Safety Issues Teaching Recipient: Patient Teaching Methods: Demonstration, Discussion Response to Teaching: Reinforcement Needed Time/GCodes Time In: 1115 Time Out: 1130 Total Billed Treatment Time: 15 Total Billed Treatment 1 visit GT 15 min ARMANDO JOSEPH PT Sep 17, 2016 11:46
[2016-09-17] MEDS: NS IV 1000 ML 1,000 ML IV SCH (14:15)
--- NOTE | 2016-09-17 15:31 | Discharge Inst-Skilled Nursing ---
Discharge Inst-Skilled NF Patient Instructions Patient Problems: mild dementia, lymphoma, recent UTI and general weakness Goal: PT OT and then home Consult/Follow Up/Orders Follow Up Appt.: see Dr cam[facility] Skilled NF Admit to: Via [facility] Certification (SNF) I certify that SNF services are required to be given on an inpatient basis because of the above named patient's need for half-way care on a continuing basis for the conditions(s) for which he/she was receiving inpatient hospital services prior to his/her transfer to the SNF. [facility] Facility Order: Nursing Services, Tour Consultant-Evaluate & Treat, Physical Therapy-Evaluate & Treat Discharge Diet: Regular Diet Daily Activity as Tolerated: Yes New & Resume Previous Orders Romel Fontenot Sep 17, 2016 15:30 ELTON FONTENOT MD Sep 17, 2016 15:31
--- NOTE | 2016-09-17 16:09 | Oncology Discharge Summary ---
Diagnosis/Chief Complaint Date of Admission Sep 12, 2016 at 14:21 Date of Discharge Discharge Date: Sep 17, 2016 Discharge Diagnosis 1. 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 Clinical stage at least IIIa 2. Neutropenic fever and pancytopenia due to chemo, 3. E coli and enterococcus UTI with h/o chronic UTI and neurogenic bladder and self-catheterize bladder. resistance to Levaquin, sensitive to Rocephin and Vanco. 4. Mild dementia 5. CAD. 6. Fever, Resolved. ? drug related. CXR and UA were unremarkable. 7. Leukocytosis 2nd to Neulasta (long acting Neupogen) 8. Sleep apnea Reason Hospital Visit Reason Hospital Visit Mr. Velasquez is a 85 year old white man with diffuse large B cell non-Hodgkin's lymphoma of germinal center origin with aggressive features, CD20 positive. He was admitted with neutropenic fever and pancytopenia due to chemo and E coli and enterococcus UTI. He has h/o chronic UTI and neurogenic bladder and self- catheterize bladder. The urine culture showed resistance to Levaquin, sensitive to Rocephin and Vanco. He was also treated with Granix 480mcg last dose . In addition, Pt also had Neulasta (long acting Neupogen on 09/04/16 at [facility]. His neutropenia and fever resolved on 3rd day of IV Rocephin. We were thinking of discharge home but he was very weak that day and his was not able to take care of him at home. We kept him for PT and OT. Then he developed fever and his WBC was persistent high. We did CXR and repeated UA which were unremarkable. We added Vancomycin antibiotics. He was treated with IV Rocephin 7days and Vanco 4 days. Now his WBC is high but he is clinically doing much better. It was felt that the high WBC is due to the long acting Neulasta. His Plt and Hb are also improving. He was discharged to senior care home to continue PT and OT with the goal eventually going home. Discharge Summary-[place] Discharge Summary Discharge Instructions to patient/family Please see electonic discharge instructions given to patient. Discharge Medications Reviewed and agree with Discharge Medication list on patient's Discharge Instruction sheet Clinical Quality Measures Clinical Quality Measures Comfort Measures/ Comfort Measures/ Copy To: Copy ELTON FONTENOT MD Sep 17, 2016 14:46 Discharge Summary Discharge Instructions to patient/family Please see electonic discharge instructions given to patient. Discharge Medications Reviewed and agree with Discharge Medication list on patient's Discharge Instruction sheet Clinical Quality Measures DVT/VTE Risk/Contraindication: Risk Factor Score Per Nursin RFS Level Per Nursing on Admit: 4+=Very High ELTON FONTENOT MD Sep 17, 2016 16:08
--- NOTE | 2016-09-17 16:15 | Therapy Team Discharge Summary ---
Therapy Discharge Summary Discharge Recommendations Date of Discharge Therapy D/C Recommendations: 24 hr Supervision Physical Therapy Patient came to swing bed status with a diagnosis of UTI. Upon admission, patient performed bed mobility and transfers with min assist, ambulated 125' with a rolling walker with min assist. Patient has been performing bed mobility and transfer training, balance and endurance training, functional strengthening, gait training, and education. Patient has not made any progress with functional mobility and has not met any of his assisted goals. [facility] and will be discharged from PT at this time. PT Statistical Programmer Goals Senior Living Goals PT Statistical Programmer Goals Time Frame: Sep 26, 2016 Transfers (B,C,W/C) (FIM): 6 Sit to Lying (QC): 6 Lying-Sitting on Side/Bed(QC): 6 Sit to Stand (QC): 6 Rollin Chair/Mmh-hx-Rutfz Xfer(QC): 6 Does the Patient Walk: Yes Gait (FIM): 6 Gait distance (FIM): 3=150 ft Distance: 200' Gait Assistive Device: FWW Does the Pt use WC or Scooter?: No OT Statistical Programmer Goals Statistical Programmer Goals Time Frame: Sep 26, 2016 Eating (FIM): 6 (not met- set up) Eating (QC): 6 (not met-set up) Oral Hygiene (QC): 6 Grooming(FIM): 6 (not met- declines with this OT) Bathing(FIM): 5 (not met- mod assistance) Upper Body Dressing(FIM): 5 (not met- clothing not available.) Lower Body Dressing(FIM): 5 (not met- max assistance) Toileting(FIM): 5 (not met) Toilet/Commode Transfer(FIM): 5 (not met- mod/max assist) Toilet/Commode Transfer (QC): 5 (not met- max assistance) Additional Goals: 1-Demonstrate ADL Tasks, 2-Verbalize Understanding, 3- ImproveStrength/Natalio 1=Demonstrate adherence to instructed precautions during ADL tasks. 2=Patient will verbalize/demonstrate understanding of assistive devices/ modifications for ADL. 3=Patient will improve strength/tolerance for activity to enable patient to perform ADL's. ARMANDO JOSEPH PT Sep 17, 2016 16:15
== END 2016-09-17 16:30 | DRG 809 ==
LOC: 4TH 14:21
PROVIDERS: ADMIT Internal Medicine Hematology & Oncology; ATTEND Internal Medicine Hematology & Oncology
DX: D70.1 Agranulocytosis secondary to cancer chemotherapy (principal); R50.81 Fever presenting with conditions classified elsewhere; N39.0 Urinary tract infection, site not specified; B96.20 Unspecified Escherichia coli [E. coli] as the cause of diseases classified elsewhere; C85.81 Other specified types of non-Hodgkin lymphoma, lymph nodes of head, face, and neck; C85.21 Mediastinal (thymic) large B-cell lymphoma, lymph nodes of head, face, and neck; N31.9 Neuromuscular dysfunction of bladder, unspecified; T45.1X5A Adverse effect of antineoplastic and immunosuppressive drugs, initial encounter; F03.90 Unspecified dementia, unspecified severity, without behavioral disturbance, psychotic disturbance, mood disturbance, and anxiety; I25.10 Atherosclerotic heart disease of native coronary artery without angina pectoris; Z87.891 Personal history of nicotine dependence; Z95.1 Presence of aortocoronary bypass graft; G47.30 Sleep apnea, unspecified; I25.2 Old myocardial infarction; Z90.79 Acquired absence of other genital organ(s); Z85.46 Personal history of malignant neoplasm of prostate; B95.2 Enterococcus as the cause of diseases classified elsewhere
CPT/HCPCS: 36415; 71020; 80048; 80053; 80202; 81000; 83605; 85025; 87040

== ENCOUNTER → 2016-09-24 | Outpatient (CLI) | payer MEDICARE, OTHER ==
[~2016-09-24] MED LIST changes: +ACID1TAB5 PO; +AMOX-355 PO; +ATOR40TA PO; +BARIUM SUSPENSION 2.1% (VANILLA SILQ) 450 ML PO ONE; +GUAI5SYR PO; +IOHEXOL 350 MG/ML 100 ML (OMNIPAQUE 350) VIAL IV ONE; +IOHEXOL 350 MG/ML 150 ML (OMNIPAQUE 350) VIAL IV ONE; +LINE600T5 PO; +NS 100 ML (IVPB) BAG IV ONE; +NYST15CR TP
--- OUTSIDE RECORDS SUMMARY | 2016-09-24 11:13 | XMS REPORT | Continuity of Care Document ---
Author Author [facility] Organization [facility] Address Unknown Phone Unavailable Care Team Providers Care Linter Saw Sharpener Name Role Phone Minnie Alejandra PCP [phone] Source Comments Some departments are not documenting in the electronic medical record. If you do not see the information that you expected, contact Release of Information in the Health Information Management department at [phone] for further assistance in locating additional records.[facility] Active Allergies and Adverse Reactions No Known [...] mouth twice Active tablet daily. (patient takes Irwin brand name: Admenta). vitamins, B complex Tab [...]
--- NOTE | 2016-09-24 12:49 | Diagnostic Imaging Report ---
CT NECK/CHEST/ABDOMEN/PELVIS W TECHNIQUE: Postcontrast CT imaging of the neck, chest, abdomen and pelvis was performed. Coronal reformats were created and submitted for interpretation. INDICATION: Diffuse B-cell lymphoma. COMPARISON: CT neck of 06/22/[address] abdomen and pelvis of 04/13/2016. PET CT of 06/10/2016. CT NECK FINDINGS: There has been decrease in size of numerous enlarged bilateral cervical lymph nodes. For example, right submandibular lymph node now measures 1.3 x 0.9 cm (previously 2.3 x 1.8 cm). Left submandibular lymph node that previously had central low attenuation has decreased in size now measuring 0.6 x 0.8 cm (previously 2.2 x 2.0 cm). The largest residual level II lymph node is on the left measuring 1.8 x 1.4 cm (previously 2.2 x 2.2 cm). Bilateral level V cervical lymph nodes have decreased in size as well. The salivary glands are normal in appearance. No evidence of mucosal-based mass. Airway is widely patent. Air-fluid level within the left sphenoid sinus is new and could relate to acute sinusitis in the appropriate clinical setting. There has been interval placement of a right IJ Port-A-Cath with nonocclusive thrombus surrounding the intraluminal portion in the distal internal jugular vein. Stable hypodense nodules in the inferior left thyroid lobe. IMPRESSION: 1. Treatment response within the neck with marked decrease in size of bilateral cervical lymphadenopathy. 2. New air-fluid level in the maxillary sinus could relate to acute sinusitis in the appropriate setting. 3. There is a small amount of nonocclusive thrombus surrounding the right IJ Port-A-Cath. CT CHEST FINDINGS: Bilateral axillary lymphadenopathy has decreased in size since prior PET/CT. Dominant lymph node on the right measures 3.6 x 1.5 cm (previously 4.1 x 2.5 cm). The dominant lymph node on the left axilla measures 2.8 x 1.4 cm (previously 4.3 x 3.0 cm). There is a lower right paratracheal lymph node which is mildly enlarged measuring 1.1 x 1.4 cm (previously 1.4 x 2.0 cm). Subcarinal lymph node measures 1.5 x 1.5 cm. No hilar lymphadenopathy. No juxtaphrenic lymphadenopathy. Cardiomegaly with changes of CABG. No pericardial effusion. Atherosclerotic but normal-caliber thoracic aorta. No pleural effusion or pneumothorax. No pulmonary mass, consolidation or nodule to suggest pulmonary involvement of lymphoma. Linear atelectasis/scar within the lingula is unchanged. IMPRESSION: 1. Treatment response in the chest with decreased size of bilateral axillary lymph nodes and right paratracheal lymphadenopathy. CT ABDOMEN AND PELVIS FINDINGS: The liver, gallbladder and spleen are normal without evidence of lymphomatous involvement. Pancreas and adrenals are normal. Stable exophytic hypodense nodule in the upper pole of the left kidney measuring 1.1 x 1.1 cm. No new suspicious renal mass. No obstructive uropathy. Urinary bladder is distended without wall thickening. Prostate is not enlarged. No pericolonic inflammatory changes. The appendix is borderline dilated measuring up to 8 mm. There is minimal surrounding inflammatory change which is similar to prior examinations. No evidence of abscess formation or perforation. Bilateral inguinal lymphadenopathy has improved since prior PET/CT. The dominant left inguinal lymph node now measures 2.1 x 2.1 cm (previously 5.0 x 3.4 cm and a dominant right inguinal lymph node now measures 2.3 x 2.0 cm (previously 2.5 x 2.3 cm). Left pelvic sidewall enlarged lymph node has also decreased in size now measuring 4.1 x 2.1 cm (previously 7.4 x 3.9 cm). Additional enlarged lymph nodes along the right external iliac chain have decreased in size as well. IMPRESSION: 1. Treatment response in abdomen and pelvis with decreased size of inguinal and pelvic lymphadenopathy. 2. Borderline dilation of appendix with mild induration of the surrounding fat. This appearance has slightly progressed since CT abdomen and pelvis of 04/13/2016. Correlation with right lower quadrant tenderness is advised. Dictated by: Dictated on workstation # [id number]
== END ==
LOC: RAD 11:09
PROVIDERS: ATTEND Nurse Practitioner Adult Health
DX: C83.38 Diffuse large B-cell lymphoma, lymph nodes of multiple sites (principal)
CPT/HCPCS: 70491; 71260; 74176

== ENCOUNTER 2016-09-28 17:38 | Inpatient (IN) | payer MEDICARE, OTHER ==
[~2016-09-28] VITALS: Ht 185.4 cm; Wt 88.9 kg
[~2016-09-28 17:38] MED LIST changes: -ACID1TAB5 PO; -AMOX-355 PO; -ATOR40TA PO; -BARIUM SUSPENSION 2.1% (VANILLA SILQ) 450 ML PO ONE; -GUAI5SYR PO; -IOHEXOL 350 MG/ML 100 ML (OMNIPAQUE 350) VIAL IV ONE; -IOHEXOL 350 MG/ML 150 ML (OMNIPAQUE 350) VIAL IV ONE; -LINE600T5 PO; -NS 100 ML (IVPB) BAG IV ONE; -NYST15CR TP
--- OUTSIDE RECORDS SUMMARY | 2016-09-28 17:43 | XMS REPORT | Continuity of Care Document ---
Author Author [facility] Organization [facility] Address Unknown Phone Unavailable Care Team Providers Care Alto Singer Name Role Phone Minnie Alejandra PCP [phone] Source Comments Some departments are not documenting in the electronic medical record. If you do not see the information that you expected, contact Release of Information in the Health Information Management department at [phone] for further assistance in locating additional records.[facility] Active Allergies and Adverse Reactions No [...] mouth twice Active tablet daily. (patient takes Divide brand name: Admenta). vitamins, B complex Tab [...]
[2016-09-28 18:15] LABS: BASOPHILS # (AUTO) 0.1 10^3/uL (0.0-0.1); BASOPHILS % (AUTO) 1 % (0-10); EOSINOPHILS # (AUTO) 0.1 10^3/uL (0.0-0.3); EOSINOPHILS % (AUTO) 0 % (0-10); LYMPHOCYTES # (AUTO) 2.3 X 10^3 (1.0-4.0); LYMPHOCYTES % (AUTO) 17 % (12-44); MEAN CORPUSCULAR HEMOGLOBIN 29 PG (25-34); MEAN CORPUSCULAR HGB CONC 33 G/DL (32-36); MEAN CORPUSCULAR VOLUME 88 FL (80-99); MEAN PLATELET VOLUME 8.9 FL (7.4-10.4); MONOCYTES # (AUTO) 0.8 X 10^3 (0.0-1.0); MONOCYTES % (AUTO) 6 % (0-12); NEUTROPHILS # (AUTO) 10.9 X 10^3 (1.8-7.8); NEUTROPHILS % (AUTO) 77 % (42-75); PLATELET COUNT 231 10^3/uL (130-400); RED BLOOD COUNT 3.88 10^6/uL (4.35-5.85); RED CELL DISTRIBUTION WIDTH 17.8 % (10.0-14.5); WHITE BLOOD COUNT 14.2 10^3/uL (4.3-11.0)
--- NOTE | 2016-09-28 18:22 | ED General ---
General Chief Complaint: General Problems/Pain Stated Complaint: UTI Nursing Triage Note: to ER by [facility] from [facility] with reports of UTI diagnosed today and family is concerned that there is something else wrong. Nursing Sepsis Screen: Possible Sepsis Risk Source of Information: Patient Exam Limitations: No Limitations History of Present Illness Time Seen by Provider: 18:00 Initial Comments Here with report of fever and urinary tract infection. He is a resident of [facility]. He was due to start Rocephin today but had worsening and so was sent here. He did not get his Rocephin dosing today. He apparently had urinalysis done that showed he had infection. Unsure about culture and sensitivity. History of Enterococcus faecalis that is resistant as recently as 2 weeks ago. That sample was sensitive to vancomycin. Complains of allover body aches and fever. Patient does have dementia and is somewhat poor historian. Previously had history of requiring self catheter. Does have lymphoma and is currently under therapy although was very sick with last chemotherapy about in August. Timing/Duration: 1-2 Days Severity: Moderate Associated Systoms: No Chest Pain, Cough Fever/ChillsNo Nausea/Vomiting, No Shortness of Air, Weakness Allergies and Home Medications Allergies Coded Allergies: No Known Drug Allergies (Unverified , 07/30/16) Home Medications Aspirin 325 Mg Tablet 325 MG PO DAILY (Reported) Atorvastatin Calcium 80 Mg Tablet 40 MG PO HS (Reported) TAKES 1/2 (80MG) TABLET Hydrocodone/Acetaminophen 1 Each Tablet 1 TAB PO Q4H PRN PRN PAIN (Reported) Omeprazole 20 Mg Capsule.dr 20 MG PO DAILY (Reported) Ondansetron HCl 8 Mg Tablet 8 MG PO Q8H PRN PRN NAUSEA/VOMITING (Reported) Polyethylene Glycol 3350 17 Gm Powd.pack 17 GM PO DAILY PRN PRN CONSTIPATION ( Reported) Constitutional: see HPI fever EENTM: see HPI Respiratory: see HPI coughNo short of breath Cardiovascular: see HPINo chest pain, edema (mild bilateral lower extremity edema that is chronic) Gastrointestinal: no symptoms reportedNo abdominal pain, No nausea, No vomiting Genitourinary: no symptoms reported Musculoskeletal: no symptoms reported Skin: no symptoms reported Psychiatric/Neurological: No Symptoms Reported All Other Systems Reviewed Negative Unless Noted: Yes Past Xaflhrv-Vvsgwz-Ydiakc Hx Patient Social History Alcohol Use: Denies Use Recreational Drug Use: No Smoking Status: Former Smoker Type Used: Cigarettes Former Smoker/When Quit: Sep 14, 1969 Recent Foreign Travel: No Contact w/Someone Who Travel: No Recent Infectious Disease Expo: No Recent Hopitalizations: Yes Physical Abuse Screen: No Sexual Abuse: No Immunizations Up To Date Tetanus Booster (TDap): More than 5yrs Date of Pneumonia Vaccine: Jun 03, 2015 Date of Influenza Vaccine: Aug 04, 2016 Seasonal Allergies Seasonal Allergies: Yes Surgeries HX Surgeries: Yes (CABG X 4, prostate surgery, knee scope, ) Surgeries: Adenoidectomy, CABG, Prostatectomy, Tonsillectomy Respiratory Hx Respiratory Disorders: Yes Respiratory Disorders: Sleep Apnea Cardiovascular Hx Cardiac Disorders: Yes (cabg x4 in 2012) Cardiac Disorders: Coronary Artery Disease, Heart Attack Neurological Hx Neurological Disorders: Yes Neurological Disorders: Dementia Reproductive System Hx Reproductive Disorders: No Genitourinary Hx Genitourinary Disorders: Yes (SELF CATH BID- ENLARGED BLADDER, recurrent urinary tract infections) Genitourinary Disorders: Prostate Problems Gastrointestinal Hx Gastrointestinal Disorders: Yes Gastrointestinal Disorders: Chronic Constipation Musculoskeletal Hx Musculoskeletal Disorders: Yes (walks with cane) Endocrine Hx Endocrine Disorders: No HEENT HX ENT Disorders: Yes (cataracts removed) Hearing Impairment: Hard of Hearing, Bilateral Hearing Aide Cancer Hx Cancer: Yes Cancer: Lymphoma Psychosocial Hx Psychiatric Problems: No Integumentary HX Skin/Integumentary Disorder: No Blood Transfusions Hx Blood Disorders: No Reviewed Nursing Assessment Reviewed/Agree w Nursing PMH: Yes Family Medical History Significant Family History: No Pertinent Family Hx Family Medial History: Arthritis 19 FATHER Cardiovascular disease FH: lymphoma 19 MOTHER Prostate cancer 19 FATHER Physical Exam-Suspected Sepsis Physical Exam Vital Signs Vital Sign - Last 12Hours 09/28/16 17:45 Temp 99.2 Pulse 123 Resp 20 B/P 161/90 Pulse Ox 97 Capillary Refill : Less Than 3 Seconds Blood Pressure Mean: 113 General Appearance: WD/WN Anxious HEENT: PERRL/EOMI Pharynx Normal Neck: Non Tender Supple Respiratory: Lungs Clear Normal Breath Sounds Cardiovascular: No Murmur Tachycardia Gastrointestinal: Non Tender Soft Back: Normal Inspection No CVA Tenderness No Vertebral Tenderness Extremity: Normal Capillary Refill Non Tender No Calf Tenderness Pedal Edema ( 1+ to the mid tibia bilaterally) Neurologic/Psychiatric: Alert Other (confused but answers questions and follows commands) Skin: normal color warm/dry Progress/Results/Core Measures Suspected Sepsis Recent Fever Within 48 Hours: Yes Infection Criteria Present: Suspected New Infection New/Unexplained Altered Menta: No Sepsis Screen: Possible Sepsis Risk Sepsis Diagnosis: SIRS Temperature:99.2 Pulse: 123 Respiratory Rate: 20 Laboratory Tests 09/28/16 18:07: White Blood Count 14.2H Blood Pressure 161 /90 Mean: 113 Laboratory Tests 09/28/16 18:07: Creatinine 0.92, Platelet Count 231, Total Bilirubin 1.6H Results/Orders Lab Results Laboratory Tests Test 09/28/16 18:07 Range/Units Alanine Aminotransferase (ALT/SGPT) 20 0-55 U/L Albumin 3.3 3.2-4.5 G/DL Alkaline Phosphatase 87 40-136 U/L Anion Gap 14 5-14 MMOL/L Aspartate Amino Transf (AST/SGOT) 29 5-34 U/L BUN/Creatinine Ratio 12 Band Neutrophils 3 % Basophils # (Auto) 0.1 0.0-0.1 10^3/uL Basophils % (Manual) 2 % Basophils (%) (Auto) 1 0-10 % Blood Morphology Comment NORMAL Blood Urea Nitrogen 11 7-18 MG/DL Calcium Level 8.2 L 8.5-10.1 MG/DL Carbon Dioxide Level 17 L 21-32 MMOL/L Chloride Level 105 98-107 MMOL/L Creatinine 0.92 0.60-1.30 MG/DL Eosinophils # (Auto) 0.1 0.0-0.3 10^3/uL Eosinophils % (Manual) 0 % Eosinophils (%) (Auto) 0 0-10 % Estimat Glomerular Filtration Rate > 60 Glucose Level 106 H 70-105 MG/DL Hematocrit 34 L 40-54 % Hemoglobin 11.2 L 13.3-17.7 G/DL Lactic Acid Level 1.1 0.5-2.0 MMOL/L Lymphocytes # (Auto) 2.3 1.0-4.0 X 10^3 Lymphocytes % (Manual) 16 % Lymphocytes (%) (Auto) 17 12-44 % Mean Corpuscular Hemoglobin 29 25-34 PG Mean Corpuscular Hemoglobin Concent 33 32-36 G/DL Mean Corpuscular Volume 88 80-99 FL Mean Platelet Volume 8.9 7.4-10.4 FL Monocytes # (Auto) 0.8 0.0-1.0 X 10^3 Monocytes % (Manual) 8 % Monocytes (%) (Auto) 6 0-12 % Neutrophils # (Auto) 10.9 H 1.8-7.8 X 10^3 Neutrophils % (Manual) 71 % Neutrophils (%) (Auto) 77 H 42-75 % Platelet Count 231 130-400 10^3/uL Potassium Level 4.1 3.6-5.0 MMOL/L Red Blood Count 3.88 L 4.35-5.85 10^6/uL Red Cell Distribution Width 17.8 H 10.0-14.5 % Sodium Level 136 135-145 MMOL/L Total Bilirubin 1.6 H 0.1-1.0 MG/DL Total Protein 5.5 L 6.4-8.2 G/DL White Blood Count 14.2 H 4.3-11.0 10^3/uL My Orders Orders-ISABEL VICTOR MD Chest 1 View, Ap/Pa Only (09/28/16 18:59) Lorazepam Injection (Ativan Injection) (09/28/16 19:30) Lorazepam Injection (Ativan Injection) (09/28/16 19:23) Piperacillin Sodium/Tazobactam (Zosyn Vi (09/28/16 20:00) Saline Lock/Iv-Start (09/28/16 19:47) Ns Iv 1000 Ml (Sodium Chloride 0.9%) (09/28/16 19:47) Piperacillin Sodium/Tazobactam (Zosyn Vi (09/28/16 20:00) Ceftriaxone Injection (Rocephin Injectio (09/28/16 20:00) Fentanyl Injection (Sublimaze Injection (09/28/16 20:01) Medications Given in ED Current Medications Medications Dose Ordered Sig/Tuan Route Start Time Stop Time Status Last Admin Dose Admin Lorazepam 0.5 mg ONCE ONCE IVP 09/28/16 19:30 09/28/16 19:31 DC 09/28/16 19:32 0.5 MG Vital Signs/I&O Vital Sign - Last 12Hours 09/28/16 09/28/16 17:45 18:02 Temp 99.2 99.2 Pulse 123 123 Resp 20 20 B/P 161/90 161/90 Pulse Ox 97 97 Capillary Refill : Less Than 3 Seconds Blood Pressure Mean: 113 Progress Note : Progress Note Seen and evaluated. IV via port access. Labs, UA, blood cultures and chest x- ray ordered. Lactic acid ordered. Monitor patient. Normal saline 1 L IV. Initially considered Zosyn 4.5 g IV but changed to Rocephin 1 g IV with vancomycin 1 g IV on admission due to history of Enterococcus faecalis UTI recently vital was multidrug-resistant but was sensitive to vancomycin. Rocephin will also cover typical urine infection bacteria. Case discussed with Dr. Rodriguez. He accepts patient for admission, inpatient status. I will consult Dr. Azar in the morning, patient's oncologist. All the findings, concerns and admission discussed with family who agreed with plan. Patient did have some agitation was given Ativan 0.5 mg IV which did help a little bit. He was complaining of some discomfort. Fentanyl 25 g IV given for that. Patient has findings of sepsis but not severe sepsis or septic shock and does not require high-volume fluid resuscitation at this time. Patient does have urine culture pending here. UA was analyzed from 1 done at the [facility] through our lab earlier today. Results and our lab. Culture pending from this evening. Diagnostic Imaging Diagonstic Imaging: Xray Plain Films/CT/US/NM/MRI: chest Comments VIA [facility]. [place], [place] NAME: LALA SALGADO [facility] REC#: [id number] PT STATUS: REG ER : 1930 PHYSICIAN: ISABEL VICTOR MD ADMIT DATE: 09/28/16/ER Draft Date of Exam:09/28/16 CHEST 1 VIEW, AP/PA ONLY INDICATION: Patient is on chemotherapy for lymphoma. Previously had UTI. Family says patient getting worse. FINDINGS: Port-A-Cath remains present on the right unchanged. The lungs are well-aerated. No infiltrates have developed. The heart remains enlarged. Median sternotomy changes are noted. No evidence of pulmonary edema. No pleural effusions. IMPRESSION: 1. No acute changes have occurred since previous exam on 09/15/2016. 2. Cardiomegaly with no evidence of failure. Dictated on workstation # [id number] Dict: 09/28/161912 Trans: 09/28/161916 ROJELIO [id number] Interpreted by: GEORGIE GONZALEZ MD Electronically signed by: Departure Communication Time/Spoke to Admitting Phy: 19:51 Impression Impression: Primary Impression: Urinary tract infection Qualified Code: N30.00 - Acute cystitis without hematuria Disposition: ADMITTED INPATIENT Condition: Stable Decision to Admit Reason: Admit from ER (General) Decision to Admit/Date: Sep 28, 2016 Time/Decision to Admit Time: 19:51 Departure-Patient Inst. Referrals: AZUL BATES MD (PCP/Family) Primary Care Physician ISABEL VICTOR MD Sep 28, 2016 18:22
[2016-09-28 18:27] LABS: BAND NEUTROPHILS 3 %; NEUTROPHILS % (MANUAL) 71 %
[2016-09-28 18:28] LABS: BASOPHILS % (MANUAL) 2 %; EOSINOPHILS % (MANUAL) 0 %; LYMPHOCYTES % (MANUAL) 16 %
[2016-09-28 18:34] LABS: ALANINE AMINOTRANSFERASE 20 U/L (0-55); ALBUMIN 3.3 G/DL (3.2-4.5); ANION GAP 14 MMOL/L (5-14); ASPARTATE AMINO TRANSFERASE 29 U/L (5-34); BILIRUBIN,TOTAL 1.6 MG/DL (0.1-1.0); BLOOD UREA NITROGEN 11 MG/DL (7-18); BUN/CREATININE RATIO 12; CALCIUM 8.2 MG/DL (8.5-10.1); CARBON DIOXIDE 17 MMOL/L (21-32); CHLORIDE 105 MMOL/L (98-107); CREATININE SERUM 0.92 MG/DL (0.60-1.30); GFR ESTIMATED > 60; GLUCOSE 106 MG/DL (70-105); POTASSIUM 4.1 MMOL/L (3.6-5.0); SODIUM 136 MMOL/L (135-145); TOTAL PROTEIN 5.5 G/DL (6.4-8.2)
--- NOTE | 2016-09-28 19:17 | Diagnostic Imaging Report ---
INDICATION: Patient is on chemotherapy for lymphoma. Previously had UTI. Family says patient getting worse. FINDINGS: Port-A-Cath remains present on the right unchanged. The lungs are well-aerated. No infiltrates have developed. The heart remains enlarged. Median sternotomy changes are noted. No evidence of pulmonary edema. No pleural effusions. IMPRESSION: 1. No acute changes have occurred since previous exam on 09/15/2016. 2. Cardiomegaly with no evidence of failure. Dictated by: Dictated on workstation # [id number]
[2016-09-28] MEDS ORDERED: LORazepam INJ 2 MG/ML (ATIVAN) VIAL ONE (19:23)
[2016-09-28] MEDS ORDERED: LORazepam INJ 2 MG/ML (ATIVAN) VIAL IVP ONE (19:30)
[2016-09-28] MEDS ORDERED: NS IV 1000 ML 1,000 ML IV ONE (19:47)
[2016-09-28] MEDS ORDERED: PIPERACILLIN/TAZO 4.5 GM VIAL (ZOSYN) IV ONE (20:00)
[2016-09-28] MEDS ORDERED: PIPERACILLIN SODIUM/TAZOBACTAM 4.5 GM in NORMAL SALINE (BAXTER MINI) 100 ML IV ONE (20:00)
[2016-09-28] MEDS ORDERED: cefTRIAXone INJECTION 1,000 MG in NORMAL SALINE (BAXTER MINI) 50 ML IV ONE (20:00)
[2016-09-28] MEDS ORDERED: fentaNYL INJECTION 100 MCG/2 ML AMP IVP STA (20:01)
[2016-09-28 21:10] VITALS: BP 166/79
[2016-09-28] MEDS ORDERED: VANCOMYCIN 1 GM/NS 250 ML IVPB IV SCH ×2 (22:00)
[2016-09-28] MEDS ORDERED: fentaNYL INJECTION 100 MCG/2 ML AMP IV PRN (22:00)
[2016-09-28] MEDS ORDERED: LORazepam INJ 2 MG/ML (ATIVAN) VIAL IV PRN (22:00)
[2016-09-28] MEDS: NS IV 1000 ML 1,000 ML IV SCH (22:19)
[2016-09-29] VITALS: BP 160/82
[2016-09-29 04:00] VITALS: BP 133/80
[2016-09-29 06:14] LABS: BASOPHILS # (AUTO) 0.1 10^3/uL (0.0-0.1); BASOPHILS % (AUTO) 1 % (0-10); EOSINOPHILS % (AUTO) 0 % (0-10); LYMPHOCYTES # (AUTO) 2.1 X 10^3 (1.0-4.0); LYMPHOCYTES % (AUTO) 19 % (12-44); MEAN CORPUSCULAR HEMOGLOBIN 28 PG (25-34); MEAN CORPUSCULAR HGB CONC 32 G/DL (32-36); MEAN CORPUSCULAR VOLUME 89 FL (80-99); MEAN PLATELET VOLUME 8.8 FL (7.4-10.4); MONOCYTES # (AUTO) 0.8 X 10^3 (0.0-1.0); MONOCYTES % (AUTO) 7 % (0-12); NEUTROPHILS % (AUTO) 73 % (42-75); PLATELET COUNT 206 10^3/uL (130-400); WHITE BLOOD COUNT 10.9 10^3/uL (4.3-11.0)
[2016-09-29 06:43] LABS: ALANINE AMINOTRANSFERASE 17 U/L (0-55); ALBUMIN 2.7 G/DL (3.2-4.5); ANION GAP 8 MMOL/L (5-14); ASPARTATE AMINO TRANSFERASE 23 U/L (5-34); BILIRUBIN,TOTAL 1.4 MG/DL (0.1-1.0); BLOOD UREA NITROGEN 11 MG/DL (7-18); BUN/CREATININE RATIO 14; CALCIUM 7.6 MG/DL (8.5-10.1); CARBON DIOXIDE 20 MMOL/L (21-32); CHLORIDE 108 MMOL/L (98-107); CREATININE SERUM 0.76 MG/DL (0.60-1.30); GFR ESTIMATED > 60; GLUCOSE 102 MG/DL (70-105); POTASSIUM 3.7 MMOL/L (3.6-5.0); SODIUM 136 MMOL/L (135-145); TOTAL PROTEIN 4.7 G/DL (6.4-8.2)
[2016-09-29 07:55] VITALS: BP 140/71
[2016-09-29] MEDS: RT-ALBUTEROL/IPRATROPIUM 3 ML (DUONEB) VIAL INH SCH ×3 (07:56→19:07)
[2016-09-29] MEDS ORDERED: NYST15CR TP (07:59)
[2016-09-29] MEDS ORDERED: ATOR40TA PO (07:59)
[2016-09-29] MEDS ORDERED: AMOX-355 PO (07:59)
[2016-09-29] MEDS ORDERED: ACID1TAB5 PO (07:59)
[2016-09-29] MEDS ORDERED: GUAI5SYR PO (07:59)
[2016-09-29] MEDS ORDERED: CATHETER FLUSH 10 ML SYR IV PRN (08:30)
--- NOTE | 2016-09-29 08:42 | History & Physical-Hospitalist ---
HPI History of Present Illness: HPI/Chief Complaint CC: Sepsis due to resistant UTI HPI: This is an 85-year-old white male [facility] patient of Dr. Alejandra's and Dr. Azar with a past medical history of lymphoma recently receiving aggressive treatment last in August but on hold due to recurrent UTIs the presents to the hospital due to suspected sepsis from enterococcus and Escherichia coli UTI on urine culture. He was placed on Rocephin and vancomycin and has improved overnight to now normal white blood cell count. I reconciled all of his home medications and patient is such a poor historian and I'm unable to obtain any reliable details regarding his medical history side obtain most from previous charting. Source: patient Exam Limitations: clinical condition Date Seen 09/29/16 Attending Physician Patricio Rodriguez MD PCP Minnie Alejandra MD Referring Physician Date of Admission Sep 28, 2016 at 20:18 Home Medications & Allergies Home Medications Reviewed patient Home Medication Reconciliation Form Allergies Coded Allergies: No Known Drug Allergies (Unverified , 07/30/16) Past Hnefaoc-Tzvokv-Lafjpp Hx Patient Social History Employed/Student: retired Alcohol Use: Denies Use Recreational Drug Use: No Smoking Status: Former Smoker Former smoker/When Quit: Sep 14, 1969 Type Used: Cigarettes Physical Abuse Screen: No Sexual Abuse: No Recent Foreign Travel: No Contact w/other who traveled: No Recent Hopitalizations: Yes Recent Infectious Disease Expo: No Immunizations Up To Date Tetanus Booster (TDap): More than 5yrs Date of Pneumonia Vaccine: Jun 03, 2015 Date of Influenza Vaccine: Aug 04, 2016 Seasonal Allergies Seasonal Allergies: Yes Surgeries HX Surgeries: Yes (CABG X 4, prostate surgery, knee scope, ) Surgeries: Adenoidectomy, CABG, Prostatectomy, Tonsillectomy Respiratory Hx Respiratory Disorders: Yes Respiratory Disorders: COPD Cardiovascular Hx Cardiovascular Disorders: Yes (cabg x4 in 2012) Cardiac Disorders: Coronary Artery Disease, Heart Attack Neurological Hx Neurological Disorders: Yes Neurological Disorders: Dementia Reproductive System Hx Reproductive Disorders: No Genitourinary Hx Genitourinary Disorders: Yes (SELF CATH BID- ENLARGED BLADDER, recurrent urinary tract infections) Genitourinary Disorders: Prostate Problems Gastrointestinal Hx Gastrointestinal Disorders: Yes Gastrointestinal Disorders: Chronic Constipation Musculoskeletal Hx Musculoskeletal Disorders: Yes (walks with cane) Endocrine Hx Endocrine Disorders: No HEENT HX ENT Disorders: Yes (cataracts removed) Hearing Impairment: Hard of Hearing, Bilateral Hearing Aide Cancer Hx Cancer: Yes Cancer: Lymphoma Psychosocial Hx Psychiatric Problems: No Integumentary HX Skin/Integumentary Disorder: No Blood Transfusions Hx Blood Disorders: No Reviewed Nursing Assessment Reviewed/Agree w Nursing PMH: Yes Family Medical History Significant Family History: No Pertinent Family Hx Family Hx: Arthritis 19 FATHER Cardiovascular disease FH: lymphoma 19 MOTHER Prostate cancer 19 FATHER Review of Systems ROS-Unable to Obtain: Limited due to poor historian and cognitive deficit Constitutional: see HPI Physical Exam Physical Exam Vital Signs Vital Sign - Last 12Hours 09/28/16 09/28/16 09/28/16 17:45 20:36 23:48 Temp 99.2 Pulse 123 Resp 20 B/P 161/90 Pulse Ox 97 O2 Delivery Room Air O2 Flow Rate 2.00 Capillary Refill : Less Than 3 Seconds General Appearance: No Apparent Distress WD/WN Chronically ill Obese Eyes: Bilateral Eye Normal Inspection, Bilateral Eye PERRL HEENT: PERRL/EOMI Normal ENT Inspection Pharynx Normal Neck: Full Range of Motion Normal Inspection Non Tender Supple Carotid Bruit Respiratory: Chest Non Tender Lungs Clear Normal Breath Sounds No Accessory Muscle Use No Respiratory Distress Cardiovascular: Regular Rate, Rhythm No Edema No Gallop No JVD No Murmur Normal Peripheral Pulses Gastrointestinal: Normal Bowel Sounds No Organomegaly No Pulsatile Mass Non Tender Soft Back: Normal Inspection No CVA Tenderness No Vertebral Tenderness Extremity: Normal Capillary Refill Normal Inspection Normal Range of Motion Non Tender No Calf Tenderness No Pedal Edema Neurologic/Psychiatric: Alert No Motor/Sensory Deficits Normal Mood/Affect Disoriented x3 Skin: Normal Color Warm/Dry Lymphatic: No Adenopathy Results Results/Procedures Lab Laboratory Tests 09/28/16 18:07 09/29/16 06:00 Assessment/Plan Admission Diagnosis Assessment: Sepsis due to UTI with enterococcus and Escherichia coli resistant organisms on urine culture from [facility] Lymphoma receiving aggressive treatment Cognitive deficit Overall debility with poor prognosis long-term Leukocytosis CAD HTN HLP Assessment and Plan Continue IV antibiotics of vancomycin and Rocephin Supportive care Palliative care consultation Dr. Grayson consultation Debility and cognitive deficit precludes anything other than a poor prognosis long-term Clinical Quality Measures DVT/VTE Risk/Contraindication: Risk Factor Score Per Nursin RFS Level Per Nursing on Admit: 4+=Very High MINNIE RUIZ DO Sep 29, 2016 08:42
[2016-09-29] MEDS ORDERED: POLYETHYLENE GLYCOL 17 GM (MIRALAX) PACK PO PRN (08:45)
[2016-09-29] MEDS ORDERED: HYDROcodone/APAP 10 MG/325 MG (LORTAB) TAB PO PRN (08:45)
[2016-09-29] MEDS ORDERED: guaiFENesin/DM (ROBITUSSIN DM) 10 ML UDC PO PRN (08:45)
[2016-09-29] MEDS ORDERED: ONDANSETRON 8 MG (ZOFRAN) ORAL DISSOLVE TAB PO PRN (09:00)
[2016-09-29] MEDS: ASPIRIN 325 MG (5 GR) TABLET PO SCH (09:40)
[2016-09-29] MEDS: LACTOBACILLUS Acidoph/Bulgar (LACTINEX/FLORANEX) TAB PO SCH ×4 (09:40→20:23)
[2016-09-29] MEDS: NYSTATIN CREAM (MYCOSTATIN) 30 GM TUBE TP SCH ×2 (09:40→20:23)
[2016-09-29] MEDS: NS IV 1000 ML 1,000 ML IV SCH ×3 (09:42→20:23)
[2016-09-29] MEDS: VANCOMYCIN INJECTION 1,250 MG in NS (IVPB) 250 ML IV SCH ×2 (10:47→23:09)
[2016-09-29 12:22] VITALS: BP 134/84
[2016-09-29 16:30] VITALS: BP 151/76
[2016-09-29 19:53] VITALS: BP 144/69
[2016-09-29] MEDS ORDERED: cefTRIAXone 1 GM/NS 50 ML IVPB IV SCH ×2 (20:00)
[2016-09-29] MEDS: ATORVASTATIN 40 MG (LIPITOR) TABLET PO SCH (20:23)
[2016-09-30 00:15] VITALS: BP 148/83
[2016-09-30] MEDS ORDERED: RT-ALBUTEROL/IPRATROPIUM 3 ML (DUONEB) VIAL INH PRN (00:30)
[2016-09-30 04:05] VITALS: BP 142/53
[2016-09-30] MEDS: NS IV 1000 ML 1,000 ML IV SCH ×2 (05:29→13:45)
[2016-09-30] MEDS: PANTOPRAZOLE 20 MG TABLET (PROTONIX) PO SCH (05:29)
[2016-09-30 05:36] LABS: BASOPHILS # (AUTO) 0.1 10^3/uL (0.0-0.1); BASOPHILS % (AUTO) 1 % (0-10); EOSINOPHILS # (AUTO) 0.1 10^3/uL (0.0-0.3); EOSINOPHILS % (AUTO) 1 % (0-10); LYMPHOCYTES # (AUTO) 2.6 X 10^3 (1.0-4.0); LYMPHOCYTES % (AUTO) 24 % (12-44); MEAN CORPUSCULAR HEMOGLOBIN 28 PG (25-34); MEAN CORPUSCULAR HGB CONC 32 G/DL (32-36); MEAN CORPUSCULAR VOLUME 88 FL (80-99); MEAN PLATELET VOLUME 9.1 FL (7.4-10.4); MONOCYTES # (AUTO) 1.1 X 10^3 (0.0-1.0); MONOCYTES % (AUTO) 10 % (0-12); NEUTROPHILS # (AUTO) 6.8 X 10^3 (1.8-7.8); NEUTROPHILS % (AUTO) 64 % (42-75); PLATELET COUNT 191 10^3/uL (130-400); RED BLOOD COUNT 3.28 10^6/uL (4.35-5.85); RED CELL DISTRIBUTION WIDTH 17.7 % (10.0-14.5); WHITE BLOOD COUNT 10.7 10^3/uL (4.3-11.0)
[2016-09-30 06:01] LABS: ALANINE AMINOTRANSFERASE 17 U/L (0-55); ALBUMIN 2.7 G/DL (3.2-4.5); ANION GAP 10 MMOL/L (5-14); ASPARTATE AMINO TRANSFERASE 29 U/L (5-34); BILIRUBIN,TOTAL 1.1 MG/DL (0.1-1.0); BLOOD UREA NITROGEN 11 MG/DL (7-18); BUN/CREATININE RATIO 15; CALCIUM 7.6 MG/DL (8.5-10.1); CARBON DIOXIDE 18 MMOL/L (21-32); CHLORIDE 106 MMOL/L (98-107); CREATININE SERUM 0.73 MG/DL (0.60-1.30); GFR ESTIMATED > 60; GLUCOSE 90 MG/DL (70-105); POTASSIUM 3.7 MMOL/L (3.6-5.0); SODIUM 134 MMOL/L (135-145); TOTAL PROTEIN 4.5 G/DL (6.4-8.2)
[2016-09-30 07:45] VITALS: BP 154/107
--- NOTE | 2016-09-30 08:09 | CONSULTATION REPORT ---
DATE OF CONSULTATION: 09/29/2016 REFERRING PHYSICIAN: Belinda Valdez D.O. PRIMARY PHYSICIAN: Minnie Alejandra M.D. The patient is admitted to Room 407. IMPRESSION: 1. 85-year-old male, admitted to the hospital from [facility] with fever and mental status changes. 2. History of neurogenic bladder and recurrent urinary tract infections with resistant organisms. 3. 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 4. Deconditioning. 5. Other comorbidities including heart failure. RECOMMENDATIONS: 1. Continue broad spectrum antibiotic therapy as you are doing. 2. Obtain consultation with licensed master social worker with [facility] regarding discharge planning. The patient's family indicated that they would like to take him home with home health and outpatient physical therapy. They will also hire help at home to take care of the patient. 3. As far as lymphoma is concerned, I would not administer any chemotherapy at this point unless his performance status improves significantly. Currently the lymphoma is not causing any symptoms and he has had an excellent clinical response. 4. His neurogenic bladder will need management with the help of his urologist. 5. His overall prognosis is guarded. BRIEF HISTORY: Mr. Velasquez is an 85-year-old male who was transferred from [facility] last night with fever and mental status changes. The patient has history of neurogenic bladder and has been self-catheterizing for decades. Recently he has had recurrent urinary tract infection with resistant bugs and he was admitted to the hospital for management of another urinary tract infection. Prior to that, he was hospitalized in August with a urinary tract infection, treated and transferred to [facility] for strengthening and physical therapy. According to the family, he was doing well with physical therapy and improving his activity level until the current infection. PAST MEDICAL HISTORY: Significant for: 1. Diffuse large B-cell non-Hodgkin's lymphoma of non-germinal center origin with a rapidly enlarging lymph nodes in the submental region. Because of his age and other comorbidities, he was not felt a candidate for anthracycline -based chemotherapy. He underwent chemotherapy with R-CEOP regimen x3 cycles with the last cycle on 09/01/2016 with good clinical response. 2. Other significant past medical history includes coronary artery disease with 4 vessel CABG approximately 2-1/2 to 3 years ago. 3. Recurrent urinary tract infections in the past due to neurogenic bladder. 4. Obstructive sleep apnea and using CPAP machine regularly. 5. Osteoarthritis of major joints. 6. Previous tonsillectomy and adenoidectomy in 1936. 7. Bilateral cataract surgeries 10 years ago. 8. 4 vessel CABG in 2014. SOCIAL HISTORY: The patient is [place]. He has 3 children, 2 sons and a daughter. All of his children live in [place]. 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 He has had several falls during his career and the neurogenic bladder was result of trauma. He has smoked a few cigarettes daily for 10 years but quit at the age of 30 years. He denied any alcohol or other recreational drug use. FAMILY HISTORY: Significant for his mother with a history of lymphoma while in her mid-70s. Father was diagnosed with prostate cancer in his early 80s. One nephew was diagnosed with lymphoma while in his 40s. No other malignancies in the family that the patient knows of. PHYSICAL EXAMINATION: Physical exam today showed an elderly male, somnolent, but arousable and answering simple questions appropriately. HEENT: Normocephalic, with male pattern baldness. Extraocular muscles intact. Conjunctivae slightly pale, oral mucosa moist. NECK: Supple with no JVD. Small lymph nodes are palpable in the cervical and axillary areas with previously noted enlarged lymph nodes in the submental region has decreased significantly. CHEST: Chest was symmetrical. LUNGS: With slightly diminished breath sounds bilaterally without wheezes or rales. CARDIOVASCULAR EXAM: Regular in rate and rhythm. No murmurs or gallops heard. ABDOMEN: Slightly obese, soft, nontender, with no hepatosplenomegaly or other masses palpable. EXTREMITIES: Showed chronic arthritic changes of major joints. NEUROLOGICAL EXAM: Showed no focal motor deficits. Overall motor strength was 4/5 bilaterally. LABORATORY: CBC done last night at the time of admission showed WBC 14.2, hemoglobin 11.2, platelet count of 231,000 with neutrophil count of 10.9. CBC done today showed white count of 10.9, hemoglobin 9.9, and platelet count of 206,000 with neutrophil count of 8. Chemistry panel done today showed CO2 level of 20, BUN was 11 and creatinine 0.76 with GFR more than 60 mL per minute. Total bilirubin was above normal at 1.4 and albumin below normal at 2.7 with the rest of the liver function studies within normal limits. Lactic acid done at the time of admission was 1.1. Urinalysis ordered yesterday was canceled. Blood cultures were obtained, which so far have been negative. Chest x-ray showed no acute changes since the previous exam from 09/15/2016. Cardiomegaly with no evidence of congestive heart failure noted. Thank you for allowing me to participate in this patient's care. I will follow the patient with you and make appropriate recommendations. Job ID: [id number] Dictated Date: 09/29/2016 17:14:26 Life Skills Consultant Date: 09/30/2016 07:54:27/mati CASTILLO
[2016-09-30] MEDS ORDERED: FUROSEMIDE 40 MG/4 ML INJ (LASIX) IVP NR (08:15)
[2016-09-30] MEDS ORDERED: FUROSEMIDE 40 MG/4 ML INJ (LASIX) ONE (08:15)
[2016-09-30] MEDS: ASPIRIN 325 MG (5 GR) TABLET PO SCH (08:30)
[2016-09-30] MEDS: NYSTATIN CREAM (MYCOSTATIN) 30 GM TUBE TP SCH ×2 (08:30→20:30)
[2016-09-30] MEDS: LACTOBACILLUS Acidoph/Bulgar (LACTINEX/FLORANEX) TAB PO SCH ×4 (08:30→20:29)
--- NOTE | 2016-09-30 09:58 | Progress Note-Hospitalist ---
Progress Note HPI/CC on Admission CC: Sepsis due to resistant UTI HPI: This is an 85-year-old white male senior care patient of Dr. Alejandra's and Dr. Azar with a past medical history of lymphoma recently receiving aggressive treatment last in August but on hold due to recurrent UTIs the presents to the hospital due to suspected sepsis from enterococcus and Escherichia coli UTI on urine culture. He was placed on Rocephin and vancomycin and has improved overnight to now normal white blood cell count. I reconciled all of his home medications and patient is such a poor historian and I'm unable to obtain any reliable details regarding his medical history side obtain most from previous charting. Progress Notes/Assess & Plan Date Seen 09/30/16 Admission Dx/Process Assessment: Sepsis due to UTI with enterococcus and Escherichia coli resistant organisms on urine culture from senior care Lymphoma receiving aggressive treatment Cognitive deficit Overall debility with poor prognosis long-term Leukocytosis CAD HTN HLP Diagonsis/Assessment & Plan Patient doing about the same and just overall poor prognosis continues Family is insisting on going home with private sitter and home health IV antibiotics will need to have 5 more days Needs discharge planning since prognosis extremely poor and patient more comfortable at home apparently He still remains a full code which needs to be addressed Tm 100.5, wasn't, pale, disoriented Regular rate and rhythm, decreased breath sounds in the bases No edema Assessment: Sepsis due to UTI with enterococcus on urine culture from senior care changed to Vanc only needs 5 more days Lymphoma receiving aggressive treatment Cognitive deficit Overall debility with poor prognosis long-term Leukocytosis CAD HTN HLP Volume overload stopping IVF and giving 1 dose of Lasix Continue IV antibiotic of vancomycin Supportive care Palliative care consultation Dr. Grayson consultation Debility and cognitive deficit precludes anything other than a poor prognosis long-term MINNIE RUIZ DO Sep 30, 2016 09:58
--- NOTE | 2016-09-30 10:02 | Occupational Therapy Eval ---
OT Evaluation-General/PLF Medical Diagnosis Admission Date Sep 28, 2016 at 20:18 Medical Diagnosis: sepsis secondary resistant UTI Onset Date: Sep 29, 2016 Therapy Diagnosis Therapy Diagnosis: Weakness, Decreased ADL skills Height/Weight Height (Feet): 6 Height (Inches): 1.00 Weight (Pounds): 196 Weight (Ounces): 0.0 Precautions Precautions/Isolations: Aspiration, Fall Prevention, Standard Precautions Safety Interventions: Bed Exit Alarm, Reorient-Attempt, Reorient-PRN Weight Bear Status Weight Bearing Restriction: Weight Bearing/Tolerated Referral Physician: Dr. Valdez Referral Reason: Activity Tolerance, Self Care, Evaluation/Treatment, Strengthening/ROM Medical History Pertinent Medical History: CAD, COPD, Dementia, [place] Additional Medical History lymphoma, was receiving treatment for CA, this on hold due to recurrent UTI's. CABG x 4, prostatectomy. Current History Pt. lives in correction. Very poor historian. Unable to give this clinician any information about his previous ability to care for himself. Does not know where he is. Has difficulty staying awake. Reviewed History: Yes Social History Home: Half-Way Current Living Status: Entry Into Home: Level Entry ADL-Prior Level of Function ADL PLOF Comments It is unknown. Pt. is unable to report any information to this therapist. DME/Equipment Comments Unknown at this time. Drive Self: No OT Current Status Subjective Pt. does not report any pain at this time. Appearance Pt. is in bed. Does agree to work with OT. Mental Status/Objective Patient Orientation: Confused, Unable to Assess Attachments: Oxygen Current Glasses/Contacts: Yes Upper Extremity ROM Pt. is able to reach bilateral UE above head. Demonstrates ROM WFL. Upper Extremity Strength Pt. is unable to participate in strength test. Unable to follow cues. ADL-Treatment Functional Garber Measure 0=Not Assessed/NA 4=Minimal Assistance 1=Total Assistance 5=Supervision or Setup 2=Maximal Assistance 6=Modified Garber 3=Moderate Assistance 7=Complete IndependenceIRFPAI Quality Coding Scale 6 Independent with activity with or without an assistive device 5 Patient requires set up or clean up by helper. Patient completes activity by themselves 4 Supervision or touching assist (CGA). [place] provide cues , steadying assist 3 The helper provides less than half the effort to complete the activity 2 The helper provides more than half the effort to complete the activity 1 Dependent. The helper does all the effort to complete an activity 7 Patient refused to complete or attempt activity 9 The patient did not perform the activity before the current illness or injury 88 Not attempted due to Medical conditions or safety concerns Eating (FIM): 5 (Pt. is finishing breakfast when OT enters room. However, note that he has spilled his coffee on his plate, and that he seems unaware of this as he continues to feed himself.) Bathing (FIM): 2 (Pt. is unable to reach bilateral feet or cleanse stephen area. Requires constant CGA for balance on side of bed, and constant cues for what to wash next. Will "dab" at places, but OT goes back over them for him.) Lower Body Dressing (FIM): 2 (Slipper socks only. No other clothing available. ) Toileting (FIM): 1 (Pt. has a catheter, and also requires dependent assistance to wash stephen area.) Transfers (B, C, W/C) (FIM): 3 (Pt. requires mod assist for supine-sit, and mod for sit-stand. Max for sit-supine.) Other Treatments Pt. was able to sit on side of bed and complete spongebath. No street clothing available. Pt. is confused. Unable to state where he is or where he lives. Unable to state personal history at this time. Pt. in bed with rails up and bed alarm set, as well as call light within reach when leaving room. Education OT Patient Education: Correct positioning, Modified ADL techniques, Progress toward Goal/Update tx plan, Purpose of tx/functional activities, Reviewed precautions, Rehab process, Transfer techniques Teaching Recipient: Patient Teaching Methods: Demonstration, Discussion Response to Teaching: Verbalize Understanding, Return Demonstration OT Short Term Goals Short Term Goals Time Frame: Oct 07, 2016 Eating(FIM): 6 Grooming(FIM): 5 Bathing(FIM): 4 Upper Body Dressing(FIM): 4 Lower Body Dressing(FIM): 3 Toileting(FIM): 3 Transfers (B,C,W/C) (FIM): 4 Toilet/Commode Transfer(FIM): 4 Shower Transfer(FIM): 3 Additional Short Term Goals: 1-Demonstrate ADL Tasks, 2-Verbalize Understanding , 3-ImproveStrength/Natalio 1=Demonstrate adherence to instructed precautions during ADL tasks. 2=Patient will verbalize/demonstrate understanding of assistive devices/ modifications for ADL. 3=Patient will improve strength/tolerance for activity to enable patient to perform ADL's. OT Fdc Goals Front Office Administrator Goals Time Frame: 2 weeks Eating (FIM): 6 Grooming(FIM): 5 Bathing(FIM): 4 Upper Body Dressing(FIM): 5 Lower Body Dressing(FIM): 5 Toileting(FIM): 5 Transfers (B,C,W/C) (FIM): 5 Toilet/Commode Transfer(FIM): 5 Shower Transfer(FIM): 4 Additional Goals: 1-Demonstrate ADL Tasks, 2-Verbalize Understanding, 3- ImproveStrength/Natalio 1=Demonstrate adherence to instructed precautions during ADL tasks. 2=Patient will verbalize/demonstrate understanding of assistive devices/ modifications for ADL. 3=Patient will improve strength/tolerance for activity to enable patient to perform ADL's. OT Education/Plan Problem List/Assessment Assessment: Decreased Activ Tolerance, Decreased Safety Aware, Decreased UE Strength, Dependent Transfers, Impaired Bed Mobility, Impaired Cognition, Impaired Coordination, Impaired Funct Balance, Impaired I ADL's, Impaired Self- Care Skills, Restricted Funct UE ROM Discharge Recommendations Plan/Recommendations: Continue POC Therapy D/C Recommendations: 24 hr Supervision Target Placement Back to correction. Treatment Plan/Plan of Care Treatment,Training & Education: Yes Patient would benefit from OT for education, treatment and training to promote independence in ADL's, mobility, safety and/or upper extremity function for ADL' s. Plan of Care: ADL Retraining, Functional Mobility, UE Funct Exercise/Act Treatment Duration: Oct 14, 2016 # of days/week 5-6 Visits Per Week: 5-6 Agreement: Yes Rehab Potential: Fair Time/GCodes Start Time: 09:30 Stop Time: 09:45 Total Time Billed (hr/min): 15 Billed Treatment Time 1, CODY VERDIN OT Sep 30, 2016 10:02
[2016-09-30] MEDS: RT-ALBUTEROL/IPRATROPIUM 3 ML (DUONEB) VIAL INH SCH ×3 (10:34→19:20)
[2016-09-30] MEDS: VANCOMYCIN INJECTION 1,250 MG in NS (IVPB) 250 ML IV SCH (11:04)
[2016-09-30 11:40] VITALS: BP 140/67
--- NOTE | 2016-09-30 14:43 | Physical Therapy Evaluation ---
PT Evaluation-General Medical Diagnosis Admission Date Sep 28, 2016 at 20:18 Medical Diagnosis: sepsis secondary resistant UTI Onset Date: Sep 29, 2016 Therapy Diagnosis Therapy Diagnosis: severe debility and weakness Height/Weight Height (Feet): 6 Height (Inches): 1.00 Weight (Pounds): 196 Weight (Ounces): 0.0 Precautions Precautions/Isolations: Aspiration, Fall Prevention, Standard Precautions Weight Bear Status Weight Bearing Restriction: Weight Bearing/Tolerated Referral Physician: Dr. Valdez Reason for Referral: Evaluation/Treatment Medical History Pertinent Medical History: CAD, COPD, Dementia, [place] Additional Medical History progressing with PT at [facility] per family report Current History presented to ED with fever; cystitis with hematura Reviewed History: Yes Social History Home: Correction Current Living Status: Entry Into Home: Level Entry Prior/Core FIM Prior Level of Function Functional [place] Measure 0=Not Assessed/NA 4=Minimal Assistance 1=Total Assistance 5=Supervision or Setup 2=Maximal Assistance 6=Modified [place] 3=Moderate Assistance 7=Complete [place] Bed Mobility: 2 Transfers (B,C,W/C) (FIM): 3 Gait: 1 PT Evaluation-Current Subjective Patient is very lethargic, family present, both agree to PT. Pain Numeric Pain Scale: 0-No Pain Location: No Pain Reported Objective Patient Orientation: Confused, Listless Problem Solving: Poor Attachments: Oxygen, Diallo Catheter ROM/Strength ROM Lower Extremities bilateral LE WFL Strenght Lower Extremities bilateral LE 2+/5 grossly; due to confusion, patient unable to follow simple direction to formally test Integumentary/Posture Integumentary refer to nursing notes Bladder Incontinence: Diallo Cath Posture kyphotic Neuromuscular (Tone, Coordination, Reflexes) severely diminished coordination Sensory Vision: Wears Glasses Hearing: Impaired Transfers Functional [place] Measure 0=Not Assessed/NA 4=Minimal Assistance 1=Total Assistance 5=Supervision or Setup 2=Maximal Assistance 6=Modified [place] 3=Moderate Assistance 7=Complete [place] Transfers (B, C, W/C) (FIM): 1 Scootin Rollin Supine to/from Sit: 1 due to extreme weakness and confusion, patient is not safe to perform sit to stand transfers Balance Sitting Static: Fair Sitting Dynamic: Fair Assessment/Needs 85 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 Patient is limited with all gross motor function at this time. Rehab Potential: Poor PT Short Term Goals Short Term Goals Transfers (B,C,W/C) (FIM): 4 PT Mcc Goals Mcc Goals PT Budget Record Clerk Goals Time Frame: Oct 08, 2016 Transfers (B,C,W/C) (FIM): 2 Gait (FIM): 1 Gait distance (FIM): 1=up to 49 ft Distance: 25' Gait Level of Assist: 3 Gait Assistive Device: FWW PT Plan Problem List Problem List: Activity Tolerance, Functional Strength, Safety, Balance, Gait, Transfer, Bed Mobility Treatment/Plan Treatment Plan: Continue Plan of Care Treatment Plan: Bed Mobility, Education, Functional Activity Natalio, Functional Strength, Gait, Safety, Therapeutic Exercise, Transfers Treatment Duration: Oct 08, 2016 # of days/week 5-6 Visits Per Week: 5-6 Pt/Family Agrees w/Plan: Yes Safety Risks/Education Patient Education: Safety Issues Teaching Recipient: Patient, Family Teaching Methods: Discussion Response to Teaching: Verbalize Understanding Discharge Recommendations Therapy D/C Recommendations: Retirement (TCU/NH) Time/GCodes Time In: 1405 Time Out: 1430 Total Billed Treatment Time: 20 Total Billed Treatment 1 visit EVHigh 20 min ALFREDO IRENE PT Sep 30, 2016 14:43
[2016-09-30 16:00] VITALS: BP 149/75
[2016-09-30] MEDS ORDERED: cefTRIAXone INJECTION 1,000 MG in NORMAL SALINE (BAXTER MINI) 50 ML IV SCH (20:00)
[2016-09-30] MEDS: ATORVASTATIN 40 MG (LIPITOR) TABLET PO SCH (20:29)
[2016-09-30] MEDS ORDERED: VANCOMYCIN INJECTION 1,250 MG in NS (IVPB) 250 ML IV SCH (23:00)
[2016-10-01] VITALS: BP 158/72
[2016-10-01 08:00] VITALS: BP 166/82
[2016-10-01] MEDS: PANTOPRAZOLE 20 MG TABLET (PROTONIX) PO SCH (08:33)
[2016-10-01] MEDS ORDERED: LINEZOLID (ZYVOX) 600 MG TAB PO SCH (09:45)
[2016-10-01] MEDS ORDERED: TROUGH ORDER-PHARMACY XX NR (10:00)
[2016-10-01] MEDS: LACTOBACILLUS Acidoph/Bulgar (LACTINEX/FLORANEX) TAB PO SCH ×2 (10:55→13:45)
[2016-10-01] MEDS: ASPIRIN 325 MG (5 GR) TABLET PO SCH (10:55)
[2016-10-01] MEDS: NYSTATIN CREAM (MYCOSTATIN) 30 GM TUBE TP SCH (10:56)
--- NOTE | 2016-10-01 10:59 | Discharge Summary-Hospitalist ---
Diagnosis/Chief Complaint Date of Admission Sep 28, 2016 at 20:18 Date of Discharge Admission Diagnosis Assessment: Sepsis due to UTI with enterococcus and Escherichia coli resistant organisms on urine culture from [facility] Lymphoma receiving aggressive treatment Cognitive deficit Overall debility with poor prognosis long-term Leukocytosis CAD HTN HLP Discharge Diagnosis Assessment: Sepsis due to UTI with enterococcus and Escherichia coli resistant organisms on urine culture from [facility] Lymphoma receiving aggressive treatment Cognitive deficit Overall debility with poor prognosis long-term Leukocytosis CAD HTN HLP Patient doing about the same and just overall poor prognosis continues Family is insisting on going home with private sitter and home health IV antibiotics will need to have 5 more days Needs discharge planning since prognosis extremely poor and patient more comfortable at home apparently He still remains a full code which needs to be addressed Tm 100.5, wasn't, pale, disoriented Regular rate and rhythm, decreased breath sounds in the bases No edema Assessment: Sepsis due to UTI with enterococcus on urine culture from [facility] changed to Vanc only needs 5 more days Lymphoma receiving aggressive treatment Cognitive deficit Overall debility with poor prognosis long-term Leukocytosis CAD HTN HLP Volume overload stopping IVF and giving 1 dose of Lasix Continue IV antibiotic of vancomycin Supportive care Palliative care consultation Dr. Grayson consultation Debility and cognitive deficit precludes anything other than a poor prognosis long-term Reason Hospital Visit/Course CC: Sepsis due to resistant UTI HPI: This is an 85-year-old white male [facility] patient of Dr. Clark and Dr. Azar with a past medical history of lymphoma recently receiving aggressive treatment last in August but on hold due to recurrent UTIs the presents to the hospital due to suspected sepsis from enterococcus and Escherichia coli UTI on urine culture. He was placed on Rocephin and vancomycin and has improved overnight to now normal white blood cell count. I reconciled all of his home medications and patient is such a poor historian and I'm unable to obtain any reliable details regarding his medical history side obtain most from previous charting. Notes from 10/01/2016: Chart Review: No fever Vitals stable Spoke with Dr. Azar and will transfer to his service on [facility] today Patient Interview: Physical exam reveals coughing. Pt had some difficulty rolling over in bed. No fever, debilitated, confused subtle RRR, CTAB decreased in bases No edema Plan: Transfer to [facility] on Dr. Alvares service Scribed by Cortez Doherty under the direct supervision of Dr. Ruiz. Hospital course: Patient a lengthy hospital course he was admitted and placed on empiric antibiotics of Rocephin and vancomycin for resistant UTI. Follow-up urine culture revealed resistant organism so he was placed on appropriate antibiotics but debilitated status required swing bed prior to returning home with private caretakers instead of skilled therapy via [facility] but overall prognosis is extremely poor I even consult palliative care in preparation for end-of-life care the Dr. Azar will take him on his swing bed service to treat him and support any of his needs prior to discharge home but prognosis again is very poor. Discharge Summary Discharge Physical Examination Allergies: Coded Allergies: No Known Drug Allergies (Unverified , 07/30/16) Vitals & I&Os Vital Signs Date Time Temp Pulse Resp B/P Pulse Ox O2 Delivery O2 Flow Rate FiO2 10/01/16 08:00 97.0 96 18 166/82 96 Room Air 09/30/16 20:30 2.00 Hospital Course Labs (last 24 hrs) Laboratory Tests 10/01/16 10:53: Microbiology 09/28/16 Blood Culture - Preliminary, Resulted No growth Pending Labs Laboratory Tests 10/01/16 10:53: Vancomycin Level Trough [Pending] Discharge Home Medications: Active Scripts Active Reported Nystatin 15 Gm Cream..g. TP BID APPLY TO BILAT GROIN AND BUTTOCKS Lactinex Chewable Tablet (L. Acidophilus/Bulgaricus) 1 Each Tab.chew 1 Tab.chew PO QID Augmentin 500-125 Tablet (Amoxicillin/Potassium Clav) 1 Each Tablet 1 Tab PO TID START DATE 09-28-16 Guaifenesin Dm Syrup (Guaifenesin/Dextromethorphan) 5 Ml Syrup 5 Ml PO Q4H PRN Lipitor (Atorvastatin Calcium) 40 Mg Tablet 40 Mg PO HS Hydrocodon-Acetaminophn 10-325 (Hydrocodone/Acetaminophen) 1 Each Tablet 1 Tab PO Q6H PRN Omeprazole 20 Mg Capsule.dr 20 Mg PO DAILY Zofran (Ondansetron HCl) 8 Mg Tablet 8 Mg PO Q8H PRN Aspirin 325 Mg Tablet 325 Mg PO DAILY Miralax (Polyethylene Glycol 3350) 17 Gm Powd.pack 17 Gm PO DAILY PRN Instructions to patient/family Please see electonic discharge instructions given to patient. Clinical Quality Measures DVT/VTE Risk/Contraindication: Risk Factor Score Per Nursin RFS Level Per Nursing on Admit: 4+=Very High MINNIE RUIZ DO Oct 01, 2016 10:59
[2016-10-01] MEDS: RT-ALBUTEROL/IPRATROPIUM 3 ML (DUONEB) VIAL INH SCH ×2 (13:58→13:59)
[2016-10-03] MEDS ORDERED: LINE600T5 PO (09:50)
== END 2016-10-01 14:11 | disposition swing bed (61) | DRG 872 ==
LOC: EDUNIT# 17:38 → ER 17:39 → 4TH 20:18
PROVIDERS: ADMIT Internal Medicine; ATTEND Internal Medicine
DX: A41.81 Sepsis due to Enterococcus (principal); A41.51 Sepsis due to Escherichia coli [E. coli]; N30.00 Acute cystitis without hematuria; C83.31 Diffuse large B-cell lymphoma, lymph nodes of head, face, and neck; N31.9 Neuromuscular dysfunction of bladder, unspecified; F03.90 Unspecified dementia, unspecified severity, without behavioral disturbance, psychotic disturbance, mood disturbance, and anxiety; I25.10 Atherosclerotic heart disease of native coronary artery without angina pectoris; I25.2 Old myocardial infarction; G47.33 Obstructive sleep apnea (adult) (pediatric); J44.9 Chronic obstructive pulmonary disease, unspecified; I10 Essential (primary) hypertension; E87.70 Fluid overload, unspecified; K59.09 Other constipation; E78.5 Hyperlipidemia, unspecified; M19.91 Primary osteoarthritis, unspecified site; Z95.1 Presence of aortocoronary bypass graft; Z87.891 Personal history of nicotine dependence; Z90.79 Acquired absence of other genital organ(s); Z92.21 Personal history of antineoplastic chemotherapy
CPT/HCPCS: 36415; 71010; 80053; 80202; 83605; 85007; 85025; 85027; 87040; 93005; 94640; 94664; 94760; 96365; 96375

== ENCOUNTER 2016-09-30 16:07 | Inpatient (IN) | payer MEDICARE, OTHER ==
[~2016-09-30] VITALS: Ht 185.4 cm; Wt 88.9 kg
[~2016-09-30 16:07] MED LIST changes: +ACID1TAB5 PO; +AMOX-355 PO; +ATOR40TA PO; +GUAI5SYR PO; +NYST15CR TP
--- NOTE | 2016-10-01 13:14 | Occupational Therapy Eval ---
OT Evaluation-General/PLF Medical Diagnosis Admission Date 10-01-16 Medical Diagnosis: UTI, sepsis Onset Date: Oct 15, 2016 Therapy Diagnosis Therapy Diagnosis: Weakness, Decreased ADL skills Height/Weight Height (Feet): 6 Height (Inches): 1.00 Weight (Pounds): 196 Weight (Ounces): 0.0 Weight Bear Status Weight Bearing Restriction: Weight Bearing/Tolerated Referral Referral Reason: Activity Tolerance, Self Care, Evaluation/Treatment, Strengthening/ROM Medical History Pertinent Medical History: CAD, COPD, Dementia, [place] Additional Medical History prostatectomy, CABG x 4 Current History Pt. is poor historian. Unable to state history but pt's spouse there today. States that he lives at home. Reviewed History: Yes Social History Home: Single Level Current Living Status: Spouse Entry Into Home: Stairs With Railing Pt's spouse states that her son is making a ramp. ADL-Prior Level of Function ADL PLOF Comments Pt's spouse states that he has slowly declined at home. States that he was having trouble walking, and with doing daily tasks. DME/Equipment: Bath Chair, Shower DME/Equipment Comments Pt. has his own walker. Drive Self: No OT Current Status Subjective No pain reported. Pt. states, "whatever you want" when asked if he will work with OT. Appearance Pt. in bed. Agrees to transfer to side of bed. Mental Status/Objective Patient Orientation: Confused, Unable to Assess Memory: 3 (Pt. is oriented to self at this moment, but does not know why he is in the hospital.) Current Upper Extremity ROM WFL Upper Extremity Strength 3/5 bilateral UE strength ADL-Treatment Functional [place] Measure 0=Not Assessed/NA 4=Minimal Assistance 1=Total Assistance 5=Supervision or Setup 2=Maximal Assistance 6=Modified [place] 3=Moderate Assistance 7=Complete IndependenceIRFPAI Quality Coding Scale 6 Independent with activity with or without an assistive device 5 Patient requires set up or clean up by helper. Patient completes activity by themselves 4 Supervision or touching assist (CGA). [place] provide cues , steadying assist 3 The helper provides less than half the effort to complete the activity 2 The helper provides more than half the effort to complete the activity 1 Dependent. The helper does all the effort to complete an activity 7 Patient refused to complete or attempt activity 9 The patient did not perform the activity before the current illness or injury 88 Not attempted due to Medical conditions or safety concerns Bathing (FIM): 2 (Pt. requires assist to bathe stephen area, bilateral LE, chest. Requires cues to continue to do each task.) Transfers (B, C, W/C) (FIM): 3 (Pt. requires mod assist to transfer supine supine-sit, and sit-stand. Mod assist to take steps toward head of bed. Mod assist for sit-supine.) Pt. agreed to sit on side of bed. Once up, noted that bed sheets and pad had food on them and some residual bowel movement. Pt. agreed to spongebath at this point. Spouse present. Pt. spongebathed on side of bed. Required step by step cues for safety and continuation of steps. Pt. did have increased balance sitting on side of bed vs. yesterday. Pt. had no loss of balance on side of bed. Spouse commented that pt. doing better today. Education OT Patient Education: Modified ADL techniques, Progress toward Goal/Update tx plan, Purpose of tx/functional activities, Reviewed precautions, Rehab process, Transfer techniques Teaching Recipient: Patient, Significant Other Teaching Methods: Demonstration, Discussion Response to Teaching: Verbalize Understanding, Return Demonstration OT Short Term Goals Short Term Goals Time Frame: Oct 08, 2016 Eating(FIM): 4 Grooming(FIM): 4 Bathing(FIM): 4 Upper Body Dressing(FIM): 4 Lower Body Dressing(FIM): 3 Toileting(FIM): 4 Transfers (B,C,W/C) (FIM): 4 Toilet/Commode Transfer(FIM): 4 Shower Transfer(FIM): 4 Additional Short Term Goals: 1-Demonstrate ADL Tasks, 2-Verbalize Understanding , 3-ImproveStrength/Natalio 1=Demonstrate adherence to instructed precautions during ADL tasks. 2=Patient will verbalize/demonstrate understanding of assistive devices/ modifications for ADL. 3=Patient will improve strength/tolerance for activity to enable patient to perform ADL's. OT Wellness Director Goals Half-Way Goals Time Frame: Oct 22, 2016 Eating (FIM): 6 Eating (QC): 6 Oral Hygiene (QC): 5 Grooming(FIM): 5 Toileting Hygiene (QC): 6 Bathing(FIM): 5 Upper Body Dressing(FIM): 5 Lower Body Dressing(FIM): 5 Toileting(FIM): 6 Transfers (B,C,W/C) (FIM): 5 Toilet/Commode Transfer(FIM): 5 Toilet/Commode Transfer (QC): 4 Shower Transfer(FIM): 5 Additional Goals: 1-Demonstrate ADL Tasks, 2-Verbalize Understanding, 3- ImproveStrength/Natalio 1=Demonstrate adherence to instructed precautions during ADL tasks. 2=Patient will verbalize/demonstrate understanding of assistive devices/ modifications for ADL. 3=Patient will improve strength/tolerance for activity to enable patient to perform ADL's. OT Education/Plan Problem List/Assessment Assessment: Decreased Activ Tolerance, Decreased Safety Aware, Decreased UE Strength, Dependent Transfers, Impaired Bed Mobility, Impaired Cognition, Impaired Coordination, Impaired Funct Balance, Impaired I ADL's, Impaired Self- Care Skills, Restricted Funct UE ROM Discharge Recommendations Plan/Recommendations: Continue POC Therapy D/C Recommendations: Home w/ Family Support, Occupational Therapy Home Care Comment Pt. was at home previous to this hospitalization per spouse. Spouse states that goal is to get him back home. Barriers to Progress cognition, weakness Treatment Plan/Plan of Care Treatment,Training & Education: Yes Patient would benefit from OT for education, treatment and training to promote independence in ADL's, mobility, safety and/or upper extremity function for ADL' s. Plan of Care: ADL Retraining, Functional Mobility, UE Funct Exercise/Act Treatment Duration: Oct 22, 2016 # of days/week 5-6 Visits Per Week: 5-6 Agreement: Yes Rehab Potential: Fair Time/GCodes Start Time: 11:40 Stop Time: 12:05 Total Time Billed (hr/min): 25 Billed Treatment Time 1, EVmod complexity x 10minutes, ADL x 15minutes CODY WOLFF OT Oct 01, 2016 13:14
[2016-10-01] MEDS ORDERED: RT-ALBUTEROL/IPRATROPIUM 3 ML (DUONEB) VIAL INH PRN (14:15)
[2016-10-01] MEDS ORDERED: HYDROcodone/APAP 10 MG/325 MG (LORTAB) TAB PO PRN (14:15)
[2016-10-01] MEDS ORDERED: ONDANSETRON 8 MG (ZOFRAN) ORAL DISSOLVE TAB PO PRN (14:15)
[2016-10-01] MEDS ORDERED: LORazepam INJ 2 MG/ML (ATIVAN) VIAL IV PRN (14:15)
[2016-10-01] MEDS ORDERED: guaiFENesin/DM (ROBITUSSIN DM) 10 ML UDC PO PRN (14:15)
[2016-10-01] MEDS ORDERED: fentaNYL INJECTION 100 MCG/2 ML AMP IV PRN (14:15)
[2016-10-01] MEDS ORDERED: CATHETER FLUSH 10 ML SYR IV PRN (14:15)
--- OUTSIDE RECORDS SUMMARY | 2016-10-01 14:32 | XMS REPORT | Continuity of Care Document ---
Author Author [facility] Organization [facility] Address Unknown Phone Unavailable Care Team Providers Care Shirt Sorter Name Role Phone Minnie Alejnadra PCP [phone] Source Comments Some departments are not documenting in the electronic medical record. If you do not see the information that you expected, contact Release of Information in the Health Information Management department at [phone] for further assistance in locating additional records.[facility] Active Allergies and Adverse Reactions [...] mouth twice Active tablet daily. (patient takes [place] brand name: Admenta). vitamins, B complex Tab [...]
--- NOTE | 2016-10-01 15:19 | Physical Therapy Evaluation ---
PT Evaluation-General Medical Diagnosis Admission Date Oct 01, 2016 at 14:12 Medical Diagnosis: UTI, sepsis Onset Date: Oct 15, 2016 Therapy Diagnosis Therapy Diagnosis: impaired mobility, strength, endurance Height/Weight Height (Feet): 6 Height (Inches): 1.00 Weight (Pounds): 196 Weight (Ounces): 0.0 Weight Bear Status Weight Bearing Restriction: Weight Bearing/Tolerated Referral Physician: Kenan Reason for Referral: Evaluation/Treatment Medical History Pertinent Medical History: CAD, COPD, Dementia, [place] Current History presented to ED with fever; cystitis with hematura Reviewed History: Yes Social History Home: Single Level Current Living Status: Spouse Entry Into Home: Stairs With Railing Prior/Core FIM Prior Level of Function Functional [place] Measure 0=Not Assessed/NA 4=Minimal Assistance 1=Total Assistance 5=Supervision or Setup 2=Maximal Assistance 6=Modified [place] 3=Moderate Assistance 7=Complete [place] Bed Mobility: 2 Transfers (B,C,W/C) (FIM): 3 Gait: 1 PT Evaluation-Current Subjective Patient in bed pre tx, agrees to PT. He is confused, states he does not have any pain. Pt/Family Goals Patient will not state a goal. Objective Patient Orientation: Person ROM/Strength ROM Lower Extremities WNL except has very tight hamstrings and cannot extend his knees fully when sitting Strenght Lower Extremities 4-/5 gross bilateral lower extremities Neuromuscular (Tone, Coordination, Reflexes) WNL Sensory Vision: Functional Hearing: Functional Sensation Right Lower Extremit: Intact Sensation Left Lower Extremity: Intact Sensation Lower Extremities Patient seems to have intact light touch sensation in his legs but testing was unreliable because he has trouble following directions Transfers Functional [place] Measure 0=Not Assessed/NA 4=Minimal Assistance 1=Total Assistance 5=Supervision or Setup 2=Maximal Assistance 6=Modified [place] 3=Moderate Assistance 7=Complete [place] Transfers (B, C, W/C) (FIM): 3 Scootin Rollin Supine to/from Sit: 3 Sit to/from Stand: 4 Sit to Lying (QC): 2 Lying to Sitting/Side of Bed(Q: 2 Sit to Stand (QC): 3 Patient needs assist with his upper extremity and both lower extremities getting into and out of bed. Patient was able to sit at the edge of the bed for about 10 min before standing which required min assist and he was able to stand for about 3 minutes before needing to sit. Gait Does the Patient Walk?: Yes Mode of Locomotion: Both Anticipated Mode of Locomotion: Both Gait (FIM): 1 Distance: 3' Walk 50 ft with 2 Turns(QC): 88 Walk 150 ft (QC): 88 Gait Level of Assist: 4 Gait Persons Needed: 1 Comments/Gait Description Patient was able to ambulated several feet sideways toward the head of the bed this afternoon, he is very weak and his knees almost collapsed several times Balance Sitting Static: Fair Sitting Dynamic: Fair Standing Static: Poor Standing Dynamic: Poor Treatment bilateral LE exercises at the edge of the bed x 20 (AP, LAQ, hip flexion) Assessment/Needs Patient has severe impairments in mobility. He is very weak in his lower extremities, can only ambulate a few feet, and has poor balance and endurance. If he is going home with his family he will need a hospital bed and bedside commode to decrease the burden of care on his caretakers and decrease the risk of falling. Rehab Potential: Fair PT Short Term Goals Short Term Goals Transfers (B,C,W/C) (FIM): 4 PT Import/Export Agent Goals Import/Export Agent Goals PT Import/Export Agent Goals Time Frame: Oct 08, 2016 Transfers (B,C,W/C) (FIM): 4 Sit to Lying (QC): 3 Lying-Sitting on Side/Bed(QC): 3 Sit to Stand (QC): 4 Rollin Chair/[id number] Xfer(QC): 3 Does the Patient Walk: Yes Gait (FIM): 1 Distance: 20' Gait Level of Assist: 4 (Jose) Gait Assistive Device: FWW PT Plan Problem List Problem List: Activity Tolerance, Functional Strength, Safety, Balance, Gait, Transfer, Bed Mobility, ROM Treatment/Plan Treatment Plan: Continue Plan of Care Treatment Plan: Bed Mobility, Education, Functional Activity Natalio, Functional Strength, Gait, Safety, Therapeutic Exercise, Transfers Treatment Duration: Oct 08, 2016 # of days/week 5-6 Visits Per Week: 10-11 Minutes/Day (M-F): 15-30 Minutes/Day (Sat/[place]): 15-30 Pt/Family Agrees w/Plan: Yes Safety Risks/Education Patient Education: Gait Training, Transfer Techniques, Correct Positioning, Safety Issues Teaching Recipient: Patient Teaching Methods: Demonstration, Discussion Response to Teaching: Reinforcement Needed Discharge Recommendations Plan Patient will perform bed mobility and transfer training, balance and endurance training, functional strengthening, stair training, gait training, education, to improve functional mobility and independence at home. Therapy D/C Recommendations: Home w/ Family Support Time/GCodes Time In: 1445 Time Out: 1515 Total Billed Treatment Time: 30 Total Billed Treatment 1 visit EVL 15 min FA 15 min ARMANDO JOSEPH PT Oct 01, 2016 15:19
[2016-10-01 17:45] VITALS: BP 134/65
[2016-10-01] MEDS: LACTOBACILLUS Acidoph/Bulgar (LACTINEX/FLORANEX) TAB PO SCH ×2 (18:26→22:42)
[2016-10-01] MEDS: RT-ALBUTEROL/IPRATROPIUM 3 ML (DUONEB) VIAL INH SCH (20:12)
[2016-10-01] MEDS ORDERED: LINEZOLID (ZYVOX) 600 MG TAB PO SCH (21:00)
[2016-10-01] MEDS: LINEZOLID (ZYVOX) 600 MG TAB PO SCH (22:42)
[2016-10-01] MEDS: ATORVASTATIN 40 MG (LIPITOR) TABLET PO SCH (22:42)
[2016-10-01] MEDS: NYSTATIN CREAM (MYCOSTATIN) 30 GM TUBE TP SCH (22:43)
[2016-10-02] VITALS: BP 158/84
[2016-10-02 04:00] VITALS: BP 146/84
[2016-10-02] MEDS: PANTOPRAZOLE 20 MG TABLET (PROTONIX) PO SCH (06:50)
[2016-10-02] MEDS: RT-ALBUTEROL/IPRATROPIUM 3 ML (DUONEB) VIAL INH SCH ×3 (08:36→21:00)
--- NOTE | 2016-10-02 09:44 | Physical Therapy Daily Note ---
PT Daily Note-Current Subjective Patient is in bed completing RT breathing and agrees to up in chair. Patient is very confused at this time and asks, repeatedly, where he is and why. Pain Numeric Pain Scale: 0-No Pain Location: No Pain Reported Mental Status Patient Orientation: Confused Attachments: Diallo Catheter Transfers Functional [place] Measure 0=Not Assessed/NA 4=Minimal Assistance 1=Total Assistance 5=Supervision or Setup 2=Maximal Assistance 6=Modified [place] 3=Moderate Assistance 7=Complete IndependenceIRFPAI Quality Coding Scale 6 Independent with activity with or without an assistive device 5 Patient requires set up or clean up by helper. Patient completes activity by themselves 4 Supervision or touching assist (CGA). [place] provide cues , steadying assist 3 The helper provides less than half the effort to complete the activity 2 The helper provides more than half the effort to complete the activity 1 Dependent. The helper does all the effort to complete an activity 7 Patient refused to complete or attempt activity 9 The patient did not perform the activity before the current illness or injury 88 Not attempted due to Medical conditions or safety concerns Transfers (B, C, W/C) (FIM): 3 Scootin Roll Left to Right (QC): 4 Supine to/from Sit: 3 Sit to/from Stand: 3 Sit to Stand (QC): 3 Chair/Ety-oe-Leeln Xfer(QC): 3 Bed to/from Chair: 3 Patient is very confused and unable to follow simple direction. Patient demonstrated impulsive behavior with bed to chair transfer with "launching" himself from side stand to chair. Education ensued. Gait Training Does the Patient Walk?: Yes Gait (FIM): 1 Distance (FIM): 1=up to 49 ft Distance: 5' Gait Level of Assist: 3 Gait Persons Needed: 2 Gait Assistive Device: FWW flexed hips and forward lean with FWW; SBA of 1 for safety with mod assist of 1 Exercises Supine Ex: Ankle pumps, Heel Slides, Straight leg raise Supine Reps: 15 (AAROM bilateral LE) Seated Therapy Exercises: Long arc quads Seated Reps: 15 (AAROM bilateral LE) Assessment Patient is unable to follow simple direction and is unaware of his surroundings. Patient continues to be very limited with functional mobility and strength to safely return to home without 24/7 caregivers. PT Short Term Goals Short Term Goals Transfers (B,C,W/C) (FIM): 4 PT Librarian Special Library Goals Librarian Special Library Goals PT Nursing Home Goals Time Frame: Oct 08, 2016 Transfers (B,C,W/C) (FIM): 4 Sit to Lying (QC): 3 Lying-Sitting on Side/Bed(QC): 3 Sit to Stand (QC): 4 Rollin Chair/[id number] Xfer(QC): 3 Does the Patient Walk: Yes Gait (FIM): 1 Distance: 20' Gait Level of Assist: 4 (Jose) Gait Assistive Device: FWW PT Plan Treatment/Plan Treatment Plan: Continue Plan of Care Treatment Plan: Bed Mobility, Education, Functional Activity Natalio, Functional Strength, Gait, Safety, Therapeutic Exercise, Transfers Treatment Duration: Oct 08, 2016 Visits Per Week: 10-11 Minutes/Day (M-F): 15-30 Minutes/Day (Sat/[place]): 15-30 Time/GCodes Time In: 830 Time Out: 853 Total Billed Treatment Time: 23 Total Billed Treatment 1 visit EX 10 min FA 13 min ALFREDO IRENE PT Oct 02, 2016 09:44
[2016-10-02] MEDS: ASPIRIN 325 MG (5 GR) TABLET PO SCH (10:51)
[2016-10-02] MEDS: POLYETHYLENE GLYCOL 17 GM (MIRALAX) PACK PO PRN (10:51)
[2016-10-02] MEDS: LINEZOLID (ZYVOX) 600 MG TAB PO SCH ×2 (10:52→20:41)
[2016-10-02] MEDS: NYSTATIN CREAM (MYCOSTATIN) 30 GM TUBE TP SCH ×2 (10:52→20:41)
[2016-10-02] MEDS: LACTOBACILLUS Acidoph/Bulgar (LACTINEX/FLORANEX) TAB PO SCH ×4 (10:52→20:41)
--- NOTE | 2016-10-02 11:42 | Occ Therapy Progress Note ---
Therapy Progress Note Checked on pt. Pt. sleeping and spouse in room. States that he has been up in chair for quite awhile. States pt. is sleeping right now. OT offered to come back after lunch to let him rest. Pt. states that that would be good. Will try back this afternoon. 1, visit 2227 CODY WOLFF OT Oct 02, 2016 11:42
--- NOTE | 2016-10-02 14:14 | Physical Therapy Daily Note ---
PT Daily Note-Current Subjective Patient is in bed with spouse present. PT requested to educate spouse on transfers and bed mobility, as well as, gait short distances. Pain Numeric Pain Scale: 0-No Pain Location: No Pain Reported Mental Status Patient Orientation: Confused Attachments: Diallo Catheter Transfers Functional [place] Measure 0=Not Assessed/NA 4=Minimal Assistance 1=Total Assistance 5=Supervision or Setup 2=Maximal Assistance 6=Modified [place] 3=Moderate Assistance 7=Complete IndependenceIRFPAI Quality Coding Scale 6 Independent with activity with or without an assistive device 5 Patient requires set up or clean up by helper. Patient completes activity by themselves 4 Supervision or touching assist (CGA). [place] provide cues , steadying assist 3 The helper provides less than half the effort to complete the activity 2 The helper provides more than half the effort to complete the activity 1 Dependent. The helper does all the effort to complete an activity 7 Patient refused to complete or attempt activity 9 The patient did not perform the activity before the current illness or injury 88 Not attempted due to Medical conditions or safety concerns Transfers (B, C, W/C) (FIM): 3 Scootin Roll Left to Right (QC): 3 Supine to/from Sit: 3 Sit to/from Stand: 3 Sit to Lying (QC): 3 Sit to Stand (QC): 3 PT assist of bilateral LE's and upper body to attain EOB due to weakness. Use of hospital bed to elevate HOB to assist patient with bed mobility transfers to EOB. Sit to stand transfers, PT utilized hospital bed to elevate to assist patient to stand due to extreme deconditioned state. Gait Training Does the Patient Walk?: No and Walking Goal IS indicated Gait (FIM): 1 Distance (FIM): 1=up to 49 ft Distance: 5' Walk 50 ft with 2 Turns(QC): 88 Walk 150 ft (QC): 88 Gait Level of Assist: 3 Gait Persons Needed: 2 (SBA of 1) Gait Assistive Device: FWW severe flexed hip posture with FWW too far forward. Patient required continuous skilled verbal instruction for body placement and proper use of FWW. Due to confusion and deconditioned states, patient required max assistance to turn to sit. Patient is impulsive to sit from stand position and is unsafe with this task. Exercises Seated Therapy Exercises: Ankle pumps, Long arc quads, Hip flexion Seated Reps: 15 bilateral LE exercises to improve patient functional strength to improve ability to assist and to decrease burden of care at home. Assessment Patient continues to demonstrate severe deconditioned states and will dismiss to home with family and home health intervention and 06/04 care. Patient has severe mobility limitation that significantly impairs his ability to participate with functional mobilities such as bed mobility, transfers and ambulation moderate to long distances. Patients mobility limitations can not be significantly resolved with use of FWW or standard mattress. A hospital bed and manual w/c will significantly improve the patients ability to participate with ADL's and mobility and to decrease burden of care. Per spouse, the home is w/c accessible and a hospital bed, with education, will benefit care of patient. PT Short Term Goals Short Term Goals Transfers (B,C,W/C) (FIM): 4 PT Intern Product Marketing Manager Goals Intern Product Marketing Manager Goals PT Intern Product Marketing Manager Goals Time Frame: Oct 08, 2016 Transfers (B,C,W/C) (FIM): 4 Sit to Lying (QC): 3 Lying-Sitting on Side/Bed(QC): 3 Sit to Stand (QC): 4 Rollin Chair/Dbg-[id number]-Myfcp Xfer(QC): 3 Does the Patient Walk: Yes Gait (FIM): 1 Distance: 20' Gait Level of Assist: 4 (Jose) Gait Assistive Device: FWW PT Plan Treatment/Plan Treatment Plan: Continue Plan of Care Treatment Plan: Bed Mobility, Education, Functional Activity Natalio, Functional Strength, Gait, Safety, Therapeutic Exercise, Transfers Treatment Duration: Oct 08, 2016 Visits Per Week: 10-11 Minutes/Day (M-F): 15-30 Minutes/Day (Sat/[place]): 15-30 Safety Risks/Education Patient Education: Gait Training, Transfer Techniques, Safety Issues Teaching Recipient: Patient, Significant Other Teaching Methods: Demonstration, Discussion Response to Teaching: Verbalize Understanding, Return Demonstration Discharge Recommendations Therapy D/C Recommendations: Home w/ Family Support Equpiment Recommendations-D/C: 3 in 1 Commode, Hospital Bed, Manual Wheelchair Time/GCodes Time In: 1255 Time Out: 1320 Total Billed Treatment Time: 25 Total Billed Treatment 1 visit FA x 2 25 min ALFREDO IRENE PT Oct 02, 2016 14:14
--- NOTE | 2016-10-02 15:26 | Occupational Ther Daily Note ---
OT Current Status-Daily Note Subjective No pain reported. Pt. has difficulty keeping eyes open during treatment. Mental Status/Objective Patient Orientation: Person Functional [place] Measure 0=Not Assessed/NA 4=Minimal Assistance 1=Total Assistance 5=Supervision or Setup 2=Maximal Assistance 6=Modified [place] 3=Moderate Assistance 7=Complete [place] ADL-Treatment Functional [place] Measure 0=Not Assessed/NA 4=Minimal Assistance 1=Total Assistance 5=Supervision or Setup 2=Maximal Assistance 6=Modified [place] 3=Moderate Assistance 7=Complete IndependenceIRFPAI Quality Coding Scale 6 Independent with activity with or without an assistive device 5 Patient requires set up or clean up by helper. Patient completes activity by themselves 4 Supervision or touching assist (CGA). [place] provide cues , steadying assist 3 The helper provides less than half the effort to complete the activity 2 The helper provides more than half the effort to complete the activity 1 Dependent. The helper does all the effort to complete an activity 7 Patient refused to complete or attempt activity 9 The patient did not perform the activity before the current illness or injury 88 Not attempted due to Medical conditions or safety concerns Transfers (B, C, W/C) (FIM): 3 (Pt. requires mod assist to stand out of chair and skilled instruction to safely take steps to pivot to bed. Then required instruction to safely lower self to bed, as pt. just "plopped." Max assist needed to get bilateral feet into bed. All needs met in bed and pt. made comfortable. All rails up and alarms on.) Other Treatment Pt. is issued theraband and therapy sponge. Completed 20 bilateral squeezes in each hand to increase overall strength for walker hand placement. Pt. then given red theraband and completed 2 bilateral UE exercises x 15 reps each to increase overall strength and endurance for walker management when walking. Pt. required max cues on how to complete exercises, and would often forget what he was doing in middle of exercises. Transferred to bed and all needs met after treatment. Education OT Patient Education: Correct positioning, Exercise program, Purpose of tx/ functional activities, Reviewed precautions, Rehab process, Transfer techniques Teaching Recipient: Patient Teaching Methods: Demonstration, Discussion Response to Teaching: Verbalize Understanding, Return Demonstration OT Short Term Goals Short Term Goals Time Frame: Oct 08, 2016 Eating(FIM): 4 Grooming(FIM): 4 Bathing(FIM): 4 Upper Body Dressing(FIM): 4 Lower Body Dressing(FIM): 3 Toileting(FIM): 4 Transfers (B,C,W/C) (FIM): 4 Toilet/Commode Transfer(FIM): 4 Shower Transfer(FIM): 4 Additional Short Term Goals: 1-Demonstrate ADL Tasks, 2-Verbalize Understanding , 3-ImproveStrength/Natalio 1=Demonstrate adherence to instructed precautions during ADL tasks. 2=Patient will verbalize/demonstrate understanding of assistive devices/ modifications for ADL. 3=Patient will improve strength/tolerance for activity to enable patient to perform ADL's. OT Mcc Goals Floor Hand Goals Time Frame: Oct 22, 2016 Eating (FIM): 6 Eating (QC): 6 Oral Hygiene (QC): 5 Grooming(FIM): 5 Toileting Hygiene (QC): 6 Bathing(FIM): 5 Upper Body Dressing(FIM): 5 Lower Body Dressing(FIM): 5 Toileting(FIM): 6 Transfers (B,C,W/C) (FIM): 5 Toilet/Commode Transfer(FIM): 5 Toilet/Commode Transfer (QC): 4 Shower Transfer(FIM): 5 Additional Goals: 1-Demonstrate ADL Tasks, 2-Verbalize Understanding, 3- ImproveStrength/Natalio 1=Demonstrate adherence to instructed precautions during ADL tasks. 2=Patient will verbalize/demonstrate understanding of assistive devices/ modifications for ADL. 3=Patient will improve strength/tolerance for activity to enable patient to perform ADL's. OT Education/Plan Problem List/Assessment Assessment: Decreased Activ Tolerance, Decreased Safety Aware, Decreased UE Strength, Dependent Transfers, Impaired Bed Mobility, Impaired Cognition, Impaired Coordination, Impaired Funct Balance, Impaired I ADL's, Impaired Self- Care Skills, Restricted Funct UE ROM Discharge Recommendations Plan/Recommendations: Continue POC Therapy D/C Recommendations: Home w/ Family Support, Occupational Therapy Home Care, Scheduled Assistance Comment Pt. will need a wheelchair. Barriers to Progress Cognition, strength. Spouse states that she will have black oxide coating equipment tender assistance at home from family to assist with pt. Treatment Plan/Plan of Care Treatment,Training & Education: Yes Patient would benefit from OT for education, treatment and training to promote independence in ADL's, mobility, safety and/or upper extremity function for ADL' s. Plan of Care: ADL Retraining, Functional Mobility, UE Funct Exercise/Act Treatment Duration: Oct 22, 2016 Visits Per Week: 5-6 Agreement: Yes Rehab Potential: Fair Time/GCodes Start Time: 14:15 Stop Time: 14:40 Total Time Billed (hr/min): 25 Billed Treatment Time 1, EX x 10minutes, FA x 15minutes CODY WOLFF OT Oct 02, 2016 15:26
--- NOTE | 2016-10-02 17:33 | Progress Note-Standard ---
Standard Progress Note Progress Notes/Assess & Plan Progress/Assessment & Plan 85-year-old male with history of neurogenic bladder and recurrent infections [facility] with mental status changes. Found to have VRE UTI and currently on Zyvox 600 mg by mouth twice a day. More awake and alert but not completely oriented. Still continues to be weak and working with physical therapy to improve strength. 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 Patient's family is working with health and social care teacher to make arrangements at home to take him home. Once this is complete, I will discharge him home with the help of home health and outpatient physical therapy. If he continues to decline, we will consider transitioning him to best supportive care with the help of hospice. Family understands this and is agreeable. Overall prognosis guarded. MATHEUS IBARRA Oct 02, 2016 17:33
[2016-10-02 18:00] VITALS: BP 152/72
[2016-10-02] MEDS: ATORVASTATIN 40 MG (LIPITOR) TABLET PO SCH (20:41)
[2016-10-03 06:00] VITALS: BP 144/67
[2016-10-03] MEDS: PANTOPRAZOLE 20 MG TABLET (PROTONIX) PO SCH (06:08)
[2016-10-03 06:36] LABS: BASOPHILS % (AUTO) 1 % (0-10); EOSINOPHILS # (AUTO) 0.2 10^3/uL (0.0-0.3); EOSINOPHILS % (AUTO) 3 % (0-10); LYMPHOCYTES % (AUTO) 36 % (12-44); MEAN CORPUSCULAR HEMOGLOBIN 28 PG (25-34); MEAN CORPUSCULAR HGB CONC 32 G/DL (32-36); MEAN CORPUSCULAR VOLUME 87 FL (80-99); MEAN PLATELET VOLUME 9.4 FL (7.4-10.4); MONOCYTES # (AUTO) 0.8 X 10^3 (0.0-1.0); MONOCYTES % (AUTO) 9 % (0-12); NEUTROPHILS # (AUTO) 4.3 X 10^3 (1.8-7.8); NEUTROPHILS % (AUTO) 52 % (42-75); PLATELET COUNT 196 10^3/uL (130-400); RED BLOOD COUNT 3.78 10^6/uL (4.35-5.85); RED CELL DISTRIBUTION WIDTH 17.5 % (10.0-14.5); WHITE BLOOD COUNT 8.4 10^3/uL (4.3-11.0)
[2016-10-03 06:50] LABS: ALANINE AMINOTRANSFERASE 20 U/L (0-55); ALBUMIN 2.7 G/DL (3.2-4.5); ANION GAP 8 MMOL/L (5-14); ASPARTATE AMINO TRANSFERASE 30 U/L (5-34); BILIRUBIN,TOTAL 0.8 MG/DL (0.1-1.0); BLOOD UREA NITROGEN 10 MG/DL (7-18); BUN/CREATININE RATIO 13; CALCIUM 7.6 MG/DL (8.5-10.1); CARBON DIOXIDE 22 MMOL/L (21-32); CHLORIDE 107 MMOL/L (98-107); CREATININE SERUM 0.76 MG/DL (0.60-1.30); GFR ESTIMATED > 60; GLUCOSE 104 MG/DL (70-105); POTASSIUM 3.6 MMOL/L (3.6-5.0); SODIUM 137 MMOL/L (135-145); TOTAL PROTEIN 4.5 G/DL (6.4-8.2)
[2016-10-03] MEDS: LINEZOLID (ZYVOX) 600 MG TAB PO SCH (08:23)
[2016-10-03] MEDS: POLYETHYLENE GLYCOL 17 GM (MIRALAX) PACK PO PRN (08:23)
[2016-10-03] MEDS: LACTOBACILLUS Acidoph/Bulgar (LACTINEX/FLORANEX) TAB PO SCH ×2 (08:23→12:54)
[2016-10-03] MEDS: ASPIRIN 325 MG (5 GR) TABLET PO SCH (08:23)
[2016-10-03] MEDS: NYSTATIN CREAM (MYCOSTATIN) 30 GM TUBE TP SCH (08:24)
[2016-10-03] MEDS: RT-ALBUTEROL/IPRATROPIUM 3 ML (DUONEB) VIAL INH SCH ×2 (09:15→14:00)
--- NOTE | 2016-10-03 09:48 | Discharge Inst-Home Health ---
Discharge Inst-to Home Health Patient Instructions Patient Instructions/FollowUp: Home PT and OT for strengthening due to deconditioning. [place]IA [place], [place] DISCHARGE ORDERS Allergies: Coded Allergies: No Known Drug Allergies (Unverified , 07/30/16) Height (Feet): 6 Height (Inches): 1.00 Weight (Pounds): 196 Weight (Ounces): 0.0 Home Health Need/Face to Face Reason Pt Homebound Patient is home bound. I Have Seen Pt Gnpa-sw-Dpkb: Yes Date of Face to Face: Oct 03, 2016 Discharged To: Home Diagnosis/Conditions HH Order: VRE UTI, Diffuse large B cell Non hodgkins lymphoma Consult/Follow Up/New Order *I certify that based on my findings, the following services are medically necessary Home Health Services: Services: Nursing Services, Boat Cleaning Supervisor-Evaluate & Treat, Physical Therapy-Evaluate & Treat My clinical findings support the need for the above services; see Diagnosis. I certify that this patient is under my care and that I, a nurse practitioner or a physician; a nurse assistant working with me, had a face to face encounter that - meets the physician face to face encounter requirements with this patient as dated. MATHEUS IBARRA Oct 03, 2016 9:48 am
[2016-10-03] MEDS ORDERED: LINE600T5 PO (09:50)
--- NOTE | 2016-10-03 11:09 | Physical Therapy Daily Note ---
PT Daily Note-Current Subjective Patient is in bed and states he doesn't know how he is going to get home from [place]. Spouse present and corrects patient. Pain Numeric Pain Scale: 0-No Pain Location: No Pain Reported Mental Status Patient Orientation: Confused Transfers Functional [place] Measure 0=Not Assessed/NA 4=Minimal Assistance 1=Total Assistance 5=Supervision or Setup 2=Maximal Assistance 6=Modified [place] 3=Moderate Assistance 7=Complete IndependenceIRFPAI Quality Coding Scale 6 Independent with activity with or without an assistive device 5 Patient requires set up or clean up by helper. Patient completes activity by themselves 4 Supervision or touching assist (CGA). [place] provide cues , steadying assist 3 The helper provides less than half the effort to complete the activity 2 The helper provides more than half the effort to complete the activity 1 Dependent. The helper does all the effort to complete an activity 7 Patient refused to complete or attempt activity 9 The patient did not perform the activity before the current illness or injury 88 Not attempted due to Medical conditions or safety concerns Transfers (B, C, W/C) (FIM): 2 Scootin Roll Left to Right (QC): 2 Supine to/from Sit: 2 Sit to/from Stand: 2 Sit to Lying (QC): 2 Sit to Stand (QC): 2 Chair/Hiy-mv-Kmkpf Xfer(QC): 2 Bed to/from Chair: 2 Patient is very confused and unable to follow direction without redirection to remain on task. Patient had 5 episodes of bilateral knee "buckling" with transfers bed to chair requiring max assist to attain and for safety. Gait Training Walk 50 ft with 2 Turns(QC): 88 Walk 150 ft (QC): 88 Exercises Seated Therapy Exercises: Ankle pumps, Sit to stand, Long arc quads Seated Reps: 10 (AAROM and max assist to perform sit to stand transfers chair to FWW) Assessment Patient continues to be severely limited with all gross motor skills and is not progressing. Per physician, patient has senior living Poor prognosis due to disease process. Patient will be dismissing to home on this date with a hospital bed and w/c being established. This will decrease burden of care. Home health to follow. Patient requires max to dependent assist with all gross motor skills for safety concerns. PT Short Term Goals Short Term Goals Transfers (B,C,W/C) (FIM): 4 PT Fpc Goals Fpc Goals PT Steamer Blocker Goals Time Frame: Oct 08, 2016 Transfers (B,C,W/C) (FIM): 4 Sit to Lying (QC): 3 Lying-Sitting on Side/Bed(QC): 3 Sit to Stand (QC): 4 Rollin Chair/Squ-xj-Zidcb Xfer(QC): 3 Does the Patient Walk: Yes Gait (FIM): 1 Distance: 20' Gait Level of Assist: 4 (Jose) Gait Assistive Device: FWW PT Plan Treatment/Plan Treatment Plan: Discontinue PT Treatment Plan: Bed Mobility, Education, Functional Activity Natalio, Functional Strength, Gait, Safety, Therapeutic Exercise, Transfers Treatment Duration: Oct 08, 2016 Visits Per Week: 10-11 Minutes/Day (M-F): 15-30 Minutes/Day (Sat/[place]): 15-30 Time/GCodes Time In: 1040 Time Out: 1055 Total Billed Treatment Time: 15 Total Billed Treatment 1 visit FA 15 min ALFREDO IRENE PT Oct 03, 2016 11:09
--- NOTE | 2016-10-03 11:11 | Therapy Team Discharge Summary ---
Therapy Discharge Summary Discharge Recommendations Date of Discharge Therapy D/C Recommendations: Home w/ Family Support, Occupational Therapy Home Care, Physical Therapy Home Care, Scheduled Assistance Physical Therapy Patient continues to be severely limited with all gross motor skills and is not progressing. Per physician, patient has prison Poor prognosis due to disease process. Patient will be dismissing to home on this date with a hospital bed and w/c being established. This will decrease burden of care. Home health to follow. Patient requires max to dependent assist with all gross motor skills for safety concerns. PT Mobile Sales Technician Goals Correction Goals PT Mobile Sales Technician Goals Time Frame: Oct 08, 2016 Transfers (B,C,W/C) (FIM): 4 Sit to Lying (QC): 3 Lying-Sitting on Side/Bed(QC): 3 Sit to Stand (QC): 4 Rollin Chair/Acb-be-Ridpe Xfer(QC): 3 Does the Patient Walk: Yes Gait (FIM): 1 Distance: 20' Gait Level of Assist: 4 (Jose) Gait Assistive Device: FWW goals not attained due to disease process OT Mobile Sales Technician Goals Mobile Sales Technician Goals Time Frame: Oct 22, 2016 Eating (FIM): 6 Eating (QC): 6 Oral Hygiene (QC): 5 Grooming(FIM): 5 Toileting Hygiene (QC): 6 Bathing(FIM): 5 Upper Body Dressing(FIM): 5 Lower Body Dressing(FIM): 5 Toileting(FIM): 6 Transfers (B,C,W/C) (FIM): 5 Toilet/Commode Transfer(FIM): 5 Toilet/Commode Transfer (QC): 4 Shower Transfer(FIM): 5 Additional Goals: 1-Demonstrate ADL Tasks, 2-Verbalize Understanding, 3- ImproveStrength/Natalio 1=Demonstrate adherence to instructed precautions during ADL tasks. 2=Patient will verbalize/demonstrate understanding of assistive devices/ modifications for ADL. 3=Patient will improve strength/tolerance for activity to enable patient to perform ADL's. ALFREDO IRENE PT Oct 03, 2016 11:11
--- NOTE | 2016-10-03 12:55 | DISCHARGE SUMMARY ---
DATE OF DISCHARGE: From swing bed status 10/03/2016 FINAL DIAGNOSES: 1. 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 2. Deconditioning/debility. 3. Diffuse large B-cell non-Hodgkin's lymphoma, status post chemotherapy with R-CEOP regimen. Mr. Velasquez is an 85-year-old male with history of diffuse large B-cell non-Hodgkin's lymphoma who completed 3 cycles of chemotherapy with R-CEOP regimen with good clinical response. The patient has chronic neurogenic bladder with recurrent urinary tract infections. He was admitted to a snf because debility but required hospitalization because of fever and mental status changes. He was found to have a urinary tract infection and was initially started on treatment with vancomycin and Rocephin. The cultures came back positive for Vanco resistant enterococcus and both the antibiotics were stopped and he was started on Zyvox 600 mg twice daily. He was placed in the hospital and now swing bed status for physical therapy because of significant debility and deconditioning. He continues to be weak but was gradually improving. volunteer services assistant consults were obtained who worked with the patient's family. According to their wish it was decided to make arrangements to discharge him home with home health and home physical therapy. He will continue self-catheterization 2 or 3 times daily to keep the bladder empty. His diet is to be regular as tolerated. Activity level is to up with assistance only. He will have home health nursing monitoring his medications and neurogenic bladder. He will have home physical therapy for strengthening and ambulation. volunteer services assistant has made arrangements for a hospital bed and a bedside commode. He will also have a wheelchair as he is homebound in his current status. He will continue with Zyvox 600 mg every 12 hours for 7 more days. Prescription was given to the patient. He will continue the rest of his home medications as before; and they were reconciled during discharge instructions. If he is having any new or unusual symptoms they were instructed to contact us. Job ID: [id number] Dictated Date: 10/03/2016 09:56:59 Brand Representative Date: 10/03/2016 12:46:11/whitney CASTILLO
--- NOTE | 2016-10-03 15:05 | Occ Therapy Progress Note ---
Therapy Progress Note Attempted OT treatment at 1445. Pt sitting EOB with spouse present, preparing for discharge, decline OT at this time. Spouse states they have everything set up and will be leaving soon. Deny needs at this time. 1, visit KALE POWELL OT Oct 03, 2016 15:05
--- NOTE | 2016-10-03 15:18 | Therapy Team Discharge Summary ---
Therapy Discharge Summary Discharge Recommendations Date of Discharge Therapy D/C Recommendations: Home w/ Family Support, Occupational Therapy Home Care, Physical Therapy Home Care, Scheduled Assistance Occupational Therapy Pt admitted to [facility] following acute hospitalization for UTI/sepsis. On admission pt required max assist for bathing and mod assist for transfers. Skilled treatment included ADL training, transfers, and strengthening. Pt did not meet OT LTG. Pt to d/c home today with family support and home health. D/C [facility] OT at this time. PT Custodial Goals Custodial Goals PT Custodial Goals Time Frame: Oct 08, 2016 Transfers (B,C,W/C) (FIM): 4 Sit to Lying (QC): 3 Lying-Sitting on Side/Bed(QC): 3 Sit to Stand (QC): 4 Rollin Chair/Ufw-bp-Dvled Xfer(QC): 3 Does the Patient Walk: Yes Gait (FIM): 1 Distance: 20' Gait Level of Assist: 4 (Jose) Gait Assistive Device: FWW OT Coordinator Of Placement Goals Coordinator Of Placement Goals Time Frame: Oct 22, 2016 Eating (FIM): 6 Eating (QC): 6 Oral Hygiene (QC): 5 Grooming(FIM): 5 Toileting Hygiene (QC): 6 Bathing(FIM): 5 Upper Body Dressing(FIM): 5 Lower Body Dressing(FIM): 5 Toileting(FIM): 6 Transfers (B,C,W/C) (FIM): 5 Toilet/Commode Transfer(FIM): 5 Toilet/Commode Transfer (QC): 4 Shower Transfer(FIM): 5 Additional Goals: 1-Demonstrate ADL Tasks, 2-Verbalize Understanding, 3- ImproveStrength/Natalio 1=Demonstrate adherence to instructed precautions during ADL tasks. 2=Patient will verbalize/demonstrate understanding of assistive devices/ modifications for ADL. 3=Patient will improve strength/tolerance for activity to enable patient to perform ADL's. KALE POWELL OT Oct 03, 2016 15:18
== END 2016-10-03 15:30 | disposition home health service (06) | DRG 690 ==
LOC: 4TH 10-01 14:12
PROVIDERS: ADMIT Internal Medicine Hematology & Oncology; ATTEND Internal Medicine Hematology & Oncology
DX: N39.0 Urinary tract infection, site not specified (principal); B95.2 Enterococcus as the cause of diseases classified elsewhere; C83.31 Diffuse large B-cell lymphoma, lymph nodes of head, face, and neck; N31.9 Neuromuscular dysfunction of bladder, unspecified; F03.90 Unspecified dementia, unspecified severity, without behavioral disturbance, psychotic disturbance, mood disturbance, and anxiety; I25.10 Atherosclerotic heart disease of native coronary artery without angina pectoris; I25.2 Old myocardial infarction; G47.33 Obstructive sleep apnea (adult) (pediatric); J44.9 Chronic obstructive pulmonary disease, unspecified; I10 Essential (primary) hypertension; E87.70 Fluid overload, unspecified; K59.09 Other constipation; E78.5 Hyperlipidemia, unspecified; M19.91 Primary osteoarthritis, unspecified site; Z95.1 Presence of aortocoronary bypass graft; Z87.891 Personal history of nicotine dependence; Z90.79 Acquired absence of other genital organ(s); Z92.21 Personal history of antineoplastic chemotherapy; Z16.21 Resistance to vancomycin
CPT/HCPCS: 36415; 80053; 85025; 94640; 94760

== ENCOUNTER 2016-11-03 13:11 | Outpatient (RCR) | payer MEDICARE, OTHER ==
--- NOTE | 2016-09-17 14:19 | Discharge Inst-Skilled Nursing ---
Discharge Inst-Skilled NF Patient Instructions Patient Problems: pt has chronic dementia, lymphoma and neurogenic bladder since childhood. He does his own self urine cath. is not able to take care of him at home. Goal: PT and OT and then home Patient Instructions: f/u with primary oncologist Dr Grayson in 3 weeks Consult/Follow Up/Orders Skilled NF Admit to: Via [facility] Emergency Department Certification ([facility]) I certify that SNF services are required to be given on an inpatient basis because of the above named patient's need for shelter care on a continuing basis for the conditions(s) for which he/she was receiving inpatient hospital services prior to his/her transfer to the SNF. Alf Facility Order: Nursing Services, Tracer Bullet Section Supervisor-Evaluate & Treat, Physical Therapy-Evaluate & Treat Discharge Diet: Regular Diet Daily Activity as Tolerated: Yes New & Resume Previous Orders Romel Fontenot Sep 17, 2016 14:16 ELTON FONTENOT MD Sep 17, 2016 14:19
--- NOTE | 2016-09-17 14:46 | Oncology Discharge Summary ---
Diagnosis/Chief Complaint Date of Admission Date of Discharge Discharge Date: Discharge Diagnosis 1. 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 Clinical stage at least IIIa 2. Neutropenic fever and pancytopenia due to chemo, 3. E coli and enterococcus UTI with h/o chronic UTI and neurogenic bladder and self-catheterize bladder. resistance to Levaquin, sensitive to Rocephin and Vanco. 4. Mild dementia 5. CAD. 6. Fever, Resolved. ? drug related. CXR and UA were unremarkable. 7. Leukocytosis 2nd to Neulasta (long acting Neupogen) 8. Sleep apnea Reason Hospital Visit Mr. Velasquez is a 85 year old white man with diffuse large B cell non-Hodgkin's lymphoma of germinal center origin with aggressive features, CD20 positive. He was admitted with neutropenic fever and pancytopenia due to chemo and E coli and enterococcus UTI. He has h/o chronic UTI and neurogenic bladder and self- catheterize bladder. The urine culture showed resistance to Levaquin, sensitive to Rocephin and Vanco. He was also treated with Granix 480mcg last dose . In addition, Pt also had Neulasta (long acting Neupogen on 09/04/16 at [facility]. His neutropenia and fever resolved on 3rd day of IV Rocephin. We were thinking of discharge home but he was very weak that day and his was not able to take care of him at home. We kept him for PT and OT. Then he developed fever and his WBC was persistent high. We did CXR and repeated UA which were unremarkable. antibiotics. He was treated with IV Rocephin 7days and Vanco 4 days.Now his WBC is high but clinically doing better. I think the high WBC is due to the Neulasta. His Plt and Hb are also improving. 3. 4. Mild dementia 5. CAD. 6. Fever, Resolved. ? drug related. CXR and UA were unremarkable. 7. Leukocytosis 2nd to Neulasta (long acting Neupogen) Plan: 1. Continue IV antibiotics Rocephin and Vanco till discharge. 2. Pt can be discharged to snf tomorrow. 3. PT OT. Physical therapy to evaluate if the patient is safe to go home. 4. CPAP from home at night. 5. I have talked with patient's and daughter. They are working on to get 24 hr care at home. In the meantime, they agree for short term snf facility Discharge Summary Discharge Instructions to patient/family Please see electonic discharge instructions given to patient. Discharge Medications Reviewed and agree with Discharge Medication list on patient's Discharge Instruction sheet ELTON FONTENOT MD Sep 17, 2016 14:46
[~2016-11-03 13:11] MED LIST changes: +LINE600T5 PO
== END 2017-02-01 | disposition home or self-care (01) ==
LOC: ONC 13:11
PROVIDERS: ATTEND Internal Medicine Hematology & Oncology
DX: C83.31 Diffuse large B-cell lymphoma, lymph nodes of head, face, and neck (principal); I25.10 Atherosclerotic heart disease of native coronary artery without angina pectoris; J44.9 Chronic obstructive pulmonary disease, unspecified; E78.5 Hyperlipidemia, unspecified; Z95.1 Presence of aortocoronary bypass graft; Z79.899 Other long term (current) drug therapy
CPT/HCPCS: 99213

== ENCOUNTER → 2016-12-23 | Outpatient (CLI) | payer MEDICARE, OTHER ==
[2016-12-23 15:38] LABS: BILIRUBIN,URINE NEGATIVE (NEGATIVE); KETONES,URINE 1+ (NEGATIVE); LEUKOCYTE ESTERASE ,URINE 3+ (NEGATIVE); NITRITE,URINE NEGATIVE (NEGATIVE); PH,URINE 6 (5-9); PROTEIN,URINE 3+ (NEGATIVE); UROBILINOGEN,URINE NORMAL (NORMAL)
[2016-12-23 16:03] LABS: WBC,URINE TNTC /HPF
== END ==
LOC: HH 15:31
PROVIDERS: ATTEND Family Medicine
DX: R31.9 Hematuria, unspecified (principal)
CPT/HCPCS: 81000; 87077; 87088; 87186